=== PATIENT | male | born 1940 | race Caucasian/White ===

== ENCOUNTER 2023-09-27 07:08 | Outpatient (RCR) | payer SELFPAY | END 2023-09-27 23:59 | disposition home or self-care (01) | LOC: RST 07:08 | PROVIDERS: ATTENDING PHYSICIAN Internal Medicine | DX: G20.A1 Parkinson's disease without dyskinesia, without mention of fluctuations (principal) ==

== ENCOUNTER → 2023-11-24 11:41 | Outpatient (REF) | payer MEDICARE, OTHER, SELFPAY ==
[2023-11-24 12:15] LABS: PT 26.9 Sec (11.4-14.6)
== END ==
LOC: REG 11:41
PROVIDERS: ATTENDING PHYSICIAN Internal Medicine; FAMILY PHYSICIAN Internal Medicine
DX: I48.0 Paroxysmal atrial fibrillation (principal)
CPT/HCPCS: 36415; 85610

== ENCOUNTER → 2023-12-04 11:18 | Outpatient (REF) | payer MEDICARE, OTHER, SELFPAY ==
[2023-12-04 12:25] LABS: INR 1.83
[2023-12-04 12:39] LABS: Blood Urea Nitrogen 22 mg/dl (9-20); Calcium 8.9 mg/dl (8.4-10.2); Carbon Dioxide 32 mmol/L (22-30); Chloride 102 mmol/L (98-107); Glucose 130 mg/dl (70-99); Sodium 136 mmol/L (135-145); eGFR > 60.00
== END ==
LOC: REG 11:18
PROVIDERS: ATTENDING PHYSICIAN Internal Medicine; FAMILY PHYSICIAN Internal Medicine
DX: I48.0 Paroxysmal atrial fibrillation (principal); I10 Essential (primary) hypertension
CPT/HCPCS: 36415; 80048; 85610

== ENCOUNTER → 2023-12-11 13:17 | Outpatient (REF) | payer MEDICARE, OTHER, SELFPAY ==
[2023-12-11 14:19] LABS: INR 2.31; PT 25.3 Sec (11.4-14.6)
== END ==
LOC: REG 13:17
PROVIDERS: ATTENDING PHYSICIAN Internal Medicine; FAMILY PHYSICIAN Internal Medicine
DX: I48.0 Paroxysmal atrial fibrillation (principal)
CPT/HCPCS: 36415; 85610

== ENCOUNTER → 2023-12-20 13:36 | Outpatient (REF) | payer MEDICARE, OTHER, SELFPAY | LOC: DHCBC MAIN 13:36 | PROVIDERS: ATTENDING PHYSICIAN Internal Medicine; FAMILY PHYSICIAN Internal Medicine | DX: I50.9 Heart failure, unspecified (principal) | CPT/HCPCS: 93306 ==

== ENCOUNTER → 2023-12-25 13:32 | Outpatient (REF) | payer MEDICARE, OTHER, SELFPAY ==
[2023-12-25 14:13] LABS: INR 1.41; PT 17.1 Sec (11.4-14.6)
== END ==
LOC: REG 13:32
PROVIDERS: ATTENDING PHYSICIAN Internal Medicine; FAMILY PHYSICIAN Internal Medicine
DX: I48.0 Paroxysmal atrial fibrillation (principal)
CPT/HCPCS: 36415; 85610

== ENCOUNTER → 2024-01-02 11:25 | Outpatient (REF) | payer MEDICARE, OTHER, SELFPAY ==
[2024-01-02 12:16] LABS: INR 1.82; PT 20.9 Sec (11.4-14.6)
== END ==
LOC: REG 11:25
PROVIDERS: ATTENDING PHYSICIAN Internal Medicine; FAMILY PHYSICIAN Internal Medicine
DX: I48.0 Paroxysmal atrial fibrillation (principal)
CPT/HCPCS: 36415; 85610

== ENCOUNTER → 2024-01-10 12:13 | Outpatient (REF) | payer MEDICARE, OTHER, SELFPAY ==
[2024-01-10 13:25] LABS: INR 2.11; PT 23.9 Sec (11.4-14.6)
== END ==
LOC: REG 12:13
PROVIDERS: ATTENDING PHYSICIAN Internal Medicine; FAMILY PHYSICIAN Internal Medicine
DX: I48.0 Paroxysmal atrial fibrillation (principal)
CPT/HCPCS: 36415; 85610

== ENCOUNTER → 2024-02-07 13:22 | Outpatient (REF) | payer MEDICARE, OTHER, SELFPAY ==
[2024-02-07 17:19] LABS: INR 3.65; PT 36.9 Sec (11.4-14.6)
== END ==
LOC: REG 13:22
PROVIDERS: ATTENDING PHYSICIAN Internal Medicine; FAMILY PHYSICIAN Internal Medicine
DX: I48.21 Permanent atrial fibrillation (principal)
CPT/HCPCS: 36415; 85610

== ENCOUNTER → 2024-02-20 11:46 | Outpatient (REF) | payer MEDICARE, OTHER, SELFPAY ==
[2024-02-20 13:35] LABS: INR 2.93; PT 30.5 Sec (11.4-14.6)
== END ==
LOC: REG 11:46
PROVIDERS: ATTENDING PHYSICIAN Internal Medicine
DX: I48.0 Paroxysmal atrial fibrillation (principal)
CPT/HCPCS: 36415; 85610

== ENCOUNTER → 2024-03-07 | Outpatient (REF) | payer MEDICARE, OTHER, SELFPAY | LOC: DHSLP | PROVIDERS: ATTENDING PHYSICIAN Internal Medicine | DX: G47.33 Obstructive sleep apnea (adult) (pediatric) (principal); R09.02 Hypoxemia | CPT/HCPCS: 95810 ==

== ENCOUNTER → 2024-03-14 12:07 | Outpatient (REF) | payer MEDICARE, OTHER, SELFPAY ==
[2024-03-14 13:48] LABS: INR 3.91
== END ==
LOC: REG 12:07
PROVIDERS: ATTENDING PHYSICIAN Internal Medicine; FAMILY PHYSICIAN Internal Medicine
DX: I48.0 Paroxysmal atrial fibrillation (principal)
CPT/HCPCS: 36415; 85610

== ENCOUNTER → 2024-03-21 11:18 | Outpatient (REF) | payer MEDICARE, OTHER, SELFPAY ==
[2024-03-21 12:14] LABS: % Basophils 0.8 % (0-2); % Eosinophils 1.7 % (0-6); % Immature Granulocytes 0.4 % (0-0.5); % Lymphocytes 15.5 % (20.5-51.1); % Neutrophils 71.6 % (42.2-75.2); Absolute Eosinophils 0.1 10^3/uL (0-0.7); Absolute Lymphocytes 0.7 10^3/uL (1.2-3.4); Absolute Monocytes 0.5 10^3/uL (0.1-0.6); Absolute Neutrophils 3.4 10^3/uL (1.4-6.5); Hematocrit 36.7 % (39.0-52.0); Hemoglobin 12.2 g/dL (13.0-18.0); Mean Corp Hgb Conc. 33.2 g/dL (33.0-37.0); Mean Corpuscular Hgb 32.2 pg (27.0-31.0); Mean Corpuscular Volume 96.8 fL (80.0-94.0); Nucleated Red Blood Cells % 0 % (-); Platelet Count 144 10^3/uL (130-400); Red Blood Cell Count 3.79 10^6/uL (4.70-6.10); Red Cell Dist. Width 13.2 % (11.5-14.5); White Blood Cell Count 4.7 10^3/uL (4.8-10.8)
[2024-03-21 12:35] LABS: INR 3.77; PT 37.3 Sec (11.4-14.6)
[2024-03-21 12:40] LABS: NT-proBNP 1250 pg/ml
[2024-03-21 13:36] LABS: ALT (SGPT) < 10 U/L (0-50); AST (SGOT) 17 U/L (17-59); Albumin 3.2 g/dl (3.5-5.0); Alkaline Phosphatase 298 U/L (38-126); Blood Urea Nitrogen 26 mg/dl (9-20); Chloride 88 mmol/L (98-107); Glucose 132 mg/dl (70-99); HDL Cholesterol 51 mg/dl; LDL Cholesterol, Calculated 59 mg/dl; Potassium 3.2 mmol/L (3.5-5.1); Sodium 132 mmol/L (135-145); Total Cholesterol 126 mg/dl (50-199); Total Protein 6.4 g/dl (6.3-8.2); Triglyceride 84 mg/dl (10-149); Very Low Density Lipoprotein 16 mg/dl (0-30); eGFR > 60.00
[2024-03-21 13:47] LABS: Carbon Dioxide 37 mmol/L (22-30)
[2024-03-21 14:02] LABS: TSH 2.33 uIU/ml (0.47-4.68)
[2024-03-21 16:08] LABS: Urine Albumin Negative (Neg - Trace); Urine Bilirubin Negative (Negative); Urine Character Clear (Clear); Urine Color Yellow; Urine Glucose Negative (Negative); Urine Ketone Trace (Negative); Urine Leukocyte Trace (Negative); Urine Nitrite Negative (Negative); Urine Occult Blood 1+ (Negative); Urine Specific Gravity 1.015 (<1.030); Urine Urobilinogen 1+ (Neg - 1+)
[2024-03-21 16:14] LABS: Urine Mucus Few
[2024-03-21 16:15] LABS: Urine Bacteria Moderate (Negative); Urine White Cell 26-30 /HPF (0-5)
[2024-03-21 16:30] LABS: Protein/creatinine Ratio 0.1; Urine Protein 6 mg/dl
[2024-03-21 16:35] LABS: Microalbumin, Random Urine 1.5 mg/dl (0.6-1.7); Microalbumin/creatinine Ratio 14.8 mg/g
== END ==
LOC: REG 11:18
PROVIDERS: ATTENDING PHYSICIAN Internal Medicine; FAMILY PHYSICIAN Internal Medicine
DX: I48.0 Paroxysmal atrial fibrillation (principal); I48.21 Permanent atrial fibrillation; N31.9 Neuromuscular dysfunction of bladder, unspecified; G20.B2 Parkinson's disease with dyskinesia, with fluctuations; E78.5 Hyperlipidemia, unspecified; I50.32 Chronic diastolic (congestive) heart failure; E11.9 Type 2 diabetes mellitus without complications; E11.40 Type 2 diabetes mellitus with diabetic neuropathy, unspecified
CPT/HCPCS: 36415; 80053; 80061; 81003; 81015; 82043; 82570; 83036; 83880; 84156; 84443; 85025; 85610

== ENCOUNTER → 2024-04-03 11:51 | Outpatient (REF) | payer MEDICARE, OTHER, SELFPAY ==
[2024-04-03 13:11] LABS: INR 4.81; PT 45.9 Sec (11.4-14.6)
[2024-04-03 13:32] LABS: ALT (SGPT) < 10 U/L (0-50); AST (SGOT) 37 U/L (17-59); Albumin 3.5 g/dl (3.5-5.0); Alkaline Phosphatase 320 U/L (38-126); Blood Urea Nitrogen 24 mg/dl (9-20); Carbon Dioxide 40 mmol/L (22-30); Chloride 93 mmol/L (98-107); Glucose 132 mg/dl (70-99); Magnesium 1.6 mg/dl (1.6-2.3); Potassium 3.4 mmol/L (3.5-5.1); Sodium 138 mmol/L (135-145); Total Protein 6.8 g/dl (6.3-8.2); eGFR > 60.00
[2024-04-03 13:37] LABS: NT-proBNP 1010 pg/ml
== END ==
LOC: REG 11:51
PROVIDERS: ATTENDING PHYSICIAN Internal Medicine; FAMILY PHYSICIAN Internal Medicine
DX: I48.0 Paroxysmal atrial fibrillation (principal); I50.32 Chronic diastolic (congestive) heart failure
CPT/HCPCS: 36415; 80053; 83735; 83880; 85610

== ENCOUNTER → 2024-04-09 12:20 | Outpatient (REF) | payer MEDICARE, OTHER, SELFPAY ==
[2024-04-09 14:07] LABS: INR 4.87; PT 45.6 Sec (11.4-14.6)
== END ==
LOC: REG 12:20
PROVIDERS: ATTENDING PHYSICIAN Internal Medicine; FAMILY PHYSICIAN Internal Medicine
DX: I48.0 Paroxysmal atrial fibrillation (principal)
CPT/HCPCS: 36415; 85610

== ENCOUNTER → 2024-04-30 09:32 | Outpatient (REF) | payer MEDICARE, OTHER, SELFPAY ==
[2024-04-30 11:10] LABS: INR 3.82; PT 37.7 Sec (11.4-14.6)
== END ==
LOC: RAD 09:32
PROVIDERS: ATTENDING PHYSICIAN Internal Medicine; FAMILY PHYSICIAN Internal Medicine; REFERRING PHYSICIAN Family Medicine
DX: R74.8 Abnormal levels of other serum enzymes (principal); I48.0 Paroxysmal atrial fibrillation
CPT/HCPCS: 36415; 76700; 85610

== ENCOUNTER → 2024-05-03 11:50 | Outpatient (REF) | payer MEDICARE, OTHER, SELFPAY ==
[2024-05-03 13:18] LABS: Urine Albumin Trace (Neg - Trace); Urine Bilirubin 1+ (Negative); Urine Character Clear (Clear); Urine Color Amber; Urine Glucose Negative (Negative); Urine Ketone 1+ (Negative); Urine Leukocyte 2+ (Negative); Urine Nitrite Positive (Negative); Urine Occult Blood 4+ (Negative); Urine Urobilinogen 2+ (Neg - 1+)
[2024-05-03 13:20] LABS: % Basophils 0.4 % (0-2); % Eosinophils 1.6 % (0-6); % Immature Granulocytes 0.6 % (0-0.5); % Lymphocytes 11.2 % (20.5-51.1); % Monocytes 7.8 % (1.7-9.3); % Neutrophils 78.4 % (42.2-75.2); Absolute Eosinophils 0.1 10^3/uL (0-0.7); Absolute Lymphocytes 0.6 10^3/uL (1.2-3.4); Absolute Monocytes 0.4 10^3/uL (0.1-0.6); Absolute Neutrophils 4.1 10^3/uL (1.4-6.5); Hematocrit 33.3 % (39.0-52.0); Hemoglobin 11.4 g/dL (13.0-18.0); Mean Corp Hgb Conc. 34.2 g/dL (33.0-37.0); Mean Corpuscular Hgb 31.1 pg (27.0-31.0); Mean Platelet Volume 9.5 fL (7.4-10.4); Nucleated Red Blood Cells % 0 % (-); Platelet Count 122 10^3/uL (130-400); Red Blood Cell Count 3.66 10^6/uL (4.70-6.10); Red Cell Dist. Width 14.6 % (11.5-14.5); White Blood Cell Count 5.2 10^3/uL (4.8-10.8)
[2024-05-03 13:41] LABS: NT-proBNP 1370 pg/ml
[2024-05-03 13:49] LABS: Erythrocyte Sed Rate 98 mm/hour (0-20)
[2024-05-03 14:01] LABS: Urine Bacteria Few (Negative); Urine Mucus Few; Urine Red Blood Cell 40-50 /HPF (0-2); Urine White Cell 16-20 /HPF (0-5)
[2024-05-03 14:08] LABS: ALT (SGPT) < 10 U/L (0-50); AST (SGOT) 20 U/L (17-59); Albumin 3.4 g/dl (3.5-5.0); Alkaline Phosphatase 235 U/L (38-126); Blood Urea Nitrogen 16 mg/dl (9-20); Calcium 8.6 mg/dl (8.4-10.2); Carbon Dioxide 35 mmol/L (22-30); Chloride 90 mmol/L (98-107); Creatine Phosphokinase 67 U/L (55-170); Glucose 152 mg/dl (70-99); Potassium 3.2 mmol/L (3.5-5.1); Sodium 133 mmol/L (135-145); Total Bilirubin 2.8 mg/dl (0.2-1.3); Total Protein 6.3 g/dl (6.3-8.2); eGFR > 60.00
== END ==
LOC: RAD 11:50
PROVIDERS: ATTENDING PHYSICIAN Nurse Practitioner Family
DX: L97.909 Non-pressure chronic ulcer of unspecified part of unspecified lower leg with unspecified severity (principal); M79.89 Other specified soft tissue disorders; R52 Pain, unspecified; R09.89 Other specified symptoms and signs involving the circulatory and respiratory systems
CPT/HCPCS: 36415; 71046; 80053; 81003; 81015; 82550; 83880; 85025; 85652; 86140; 87086

== ENCOUNTER 2024-05-03 13:04 | Emergency (ER) | payer MEDICARE, OTHER, SELFPAY ==
[2024-05-03 13:13] VITALS: BP 100/63
--- NOTE | 2024-05-03 14:54 | ED.GENMED ---
History of Present Illness
<Carie Antoine PA-C - Last Filed: 05/03/24 19:09>
General
Chief Complaint: Weakness
Source: patient
Exam Limitations: none
Time Seen by Provider: 05/03/24 14:54
Nursing documentation reviewed up to this point in time: agreed with
History of Present Illness
History of Present Illness:
This is a 83-year-old male with a history of diastolic heart failure, A-fib on warfarin, Parkinson's, coronary artery disease hyperlipidemia presenting to the emergency department today with concerns of weakness. Patient states in general he feels
weak, reports that the last few days his legs have gotten so swollen that has been increasingly hard for him to walk. Patient resides at [facility] where he receives care. Patient is present here with his home health ostomy care nurse. She
reports that she is also noted patient seems like she has been short of breath recently. Patient personally denies any shortness of breath, any chest pain, any fevers or chills, any nausea or vomiting, abdominal pain. Home nurse reports that he
has had some wounds draining on his lower extremities recently as well. She reports over the past 2 weeks the swelling is gone significantly worse. He does take 40 mg of Lasix once daily. He saw his primary doctor this morning who ordered
outpatient labs and a chest x-ray. Patient denies any back pain. Of note, patient recently got a Shell catheter placed 3 days ago. Patient denies any urinary symptoms.
Past History
<Carie Antoine PA-C - Last Filed: 05/03/24 19:09>
Past History
ED Past Medical History: Arrthythmia, CAD, Hypercholesterolemia, NIDDM, Other (Kidney stones) and Other
ED Past Surgical History: Cardiac and Orthopedic
Social History
Tobacco: Non-smoker
Alcohol: Occasional (1 martini per day)
Drug: None
Personal:
Living: with family
Employment: Employed
Family History
Family History: Other (Noncontributory)
Review of Systems
<Carie Antoine PA-C - Last Filed: 05/03/24 19:09>
Review of Systems
All Other Systems: ROS reviewed and negative except as documented in HPI and ROS
Phy Exam
<Carie Antoine PA-C - Last Filed: 05/03/24 19:09>
Physical Exam
Physical Exam:
General: Patient is chronically ill-appearing but in no acute distress; non-toxic
Skin: Warm and dry, there is small scattered wounds in the bilateral lower extremities with some mild clear drainage but no erythema, no signs of acute infection
Head: Normocephalic, atraumatic.
Eyes: Sclera non-icteric. EOMs intact. PERRLA.
Cardiac: Rate is irregularly irregular with no murmurs
Peripheral Vascular: Bilateral lower extremity pitting edema noted. Brawny discoloration noted. There are two circular shallow wounds on the right lower extremity, and two shallow wounds on the left lower extremity. Wounds are well dressed. No signs
of ulceration, necrosis, or infection.
Pulm: Normal respiratory effort, lung sounds equal bilaterally with no wheezes, rales, or rhonchi.
Abdomen: No abdominal tenderness to palpation, no palpable masses.
Musculoskeletal: No tenderness to palpation of bilateral lower extremities.
Neuro: CN II-XII intact, no focal neurologic deficits.
Psychiatric: Appropriate mood and affect.
Course
<Carie Antoine PA-C - Last Filed: 05/03/24 19:09>
Orders/Labs/Results
Orders:
Orders
05/03/24 15:16
Furosemide [Lasix] 40 mg IV NOW STA
05/03/24 15:17
Add On- LAB Urgent
Tests Added?: troponin
Electrocardiogram (*1) Urgent
Reason for Study: Heart Failure, Left
EKG- Treatment ONCE
05/03/24 15:39
Potassium Chloride 10% Elixir [KCl Elixir] 40 meq PO NOW STA
05/03/24 16:29
Troponin I Urgent
Comment: COLLECT. NO GREEN TOP IN LAB
Abnormal Lab Results
05/03/24
16:29
Troponin I 0.092 H* ng/ml
Vital Signs
Initial and Last Documented VS:
Initial Vital Signs
Temp Pulse Resp BP Pulse Ox
98.0 F 87 16 100/63 98
05/03/24 13:13 05/03/24 13:13 05/03/24 13:13 05/03/24 13:13 05/03/24 13:13
Last Documented Vital Signs
Temp Pulse Resp BP Pulse Ox
98.0 F 98 23 128/72 96
05/03/24 13:13 05/03/24 17:15 05/03/24 17:49 05/03/24 17:00 05/03/24 16:45
<Damian Higgins, DO - Last Filed: 05/03/24 16:06>
Orders/Labs/Results
Orders:
Orders
05/03/24 15:16
Furosemide [Lasix] 40 mg IV NOW STA
05/03/24 15:17
Add On- LAB Urgent
Tests Added?: troponin
Electrocardiogram (*1) Urgent
Reason for Study: Heart Failure, Left
EKG- Treatment ONCE
05/03/24 15:39
Potassium Chloride 10% Elixir [KCl Elixir] 40 meq PO NOW STA
05/03/24 16:29
Troponin I Urgent
Comment: COLLECT. NO GREEN TOP IN LAB
Abnormal Lab Results
05/03/24
16:29
Troponin I 0.092 H* ng/ml
Vital Signs
Initial and Last Documented VS:
Initial Vital Signs
Temp Pulse Resp BP Pulse Ox
98.0 F 87 16 100/63 98
05/03/24 13:13 05/03/24 13:13 05/03/24 13:13 05/03/24 13:13 05/03/24 13:13
Last Documented Vital Signs
Temp Pulse Resp BP Pulse Ox
98.0 F 98 23 128/72 96
05/03/24 13:13 05/03/24 17:15 05/03/24 17:49 05/03/24 17:00 05/03/24 16:45
<Carie Antoine PA-C - Last Filed: 05/03/24 19:09>
MDM/Problems Addressed
Differential Diagnosis Includes:
Differentials include acute CHF exacerbation, cellulitis, peripheral vascular disease, peripheral arterial disease, erysipelas, pneumonia, urinary tract infection
MDM/Problems Addressed:
Weakness, lower extremity swelling:
This is a 83-year-old male with a history of diastolic heart failure, A-fib on warfarin, Parkinson's, coronary artery disease hyperlipidemia presenting to the emergency department today with concerns of weakness. Patient states that when he walks,
he feels weaker because the swelling in his legs have increased over the past few weeks. Patient denies chest pain, shortness of breath. Patient denies dizziness, lightheadedness, abdominal pain, fevers or chills. On physical exam he is
chronically ill-appearing but nontoxic, he has bilateral lower extremity swelling, and he is in no respiratory distress his chest x-ray is negative for any acute disease of the chest, no evidence of pleural effusion or pneumonia. His troponin today
0.092, however this is around his baseline. His proBNP is slightly bumped from his baseline. Considering his increase in leg swelling and pro-BNP, a dose of IV lasix was given. I personally observed patient ambulate to the bathroom with his walker
without difficulty. Patient stable to follow up with his house carpenter helper, return precautions discussed.
Outpatient urinalysis demonstrates positive nitrates and WBCs with trace bacteria collected off of chronic shell. Considering patient has no symptoms afebrile, no indication for treatment at this time.
Chronic conditions affecting care:
diastolic heart failure, A-fib on warfarin, Parkinson's, coronary artery disease hyperlipidemia
Acute Exacerbation and/or Progression of Chronic Illness:
CHF
<Carie Antoine PA-C - Last Filed: 05/03/24 19:09>
*Pulse Oximetry
Patient hypoxic: no
*EKG
Interpreted by ED Provider?: Yes
EKG Intrepretation Date: 05/03/24
Interpretation: abnormal
Comparison EKG: changes noted (rate has increased, occasional PVCs now present)
Heart Rate: 78
Rate: normal
Rhythm: a-fib
[place]: normal axis
Interval: normal interval
Ischemia: no ischemia
*Revenue Field Agent Interpretation
Rate: normal
Interpretation: abnormal
Heart Rate: 80
Rhythm: a-fib
*Critical Care Note
Total Time (30-74mins, 75-104mins- exclusive of procedures): Not Applicable
Data Reviewed
Review of Other/Old Records Reveals: Records (Reviewed previous ER record from 05/31/2023), Discharge Summary (Reviewed discharge summary from 06/01/2023) and Other (Reviewed most previous echo)
Source: patient
Prescriptions/Medications Considered But Not Given:
Considered antibiotics
<VINCENT Villanueva Last Filed: 05/03/24 19:09>
Patient Management
Escalation/DeEscalation of care consider admission/obs:
Admit not indicated, patient stable for discharge to care at [facility] and outpatient cardiology follow up
ED Attending Note
<VINCENT Villanueva Last Filed: 05/03/24 19:09>
-
Portions of this chart may have been created with voice recognition software.� Occasional wrong word or��sound alike� substitutions may have occurred due to the inherent limitations of voice recognition software.
<Damian Higgins, DO - Last Filed: 05/03/24 16:06>
ED Attending Note
Patient seen and examined by attending physician: Yes
I performed the substantive portion of visit, reviewed & personally made and approve the management plan that is documented in note by myself or JOSE.: Yes
ED Attending Note:
Seen with PA examined independently lower extremity edema with some drainage outpatient labs and x-ray done, does not appear critically dyspneic, look at his legs, consideration for dose of diuretic
Discharge Plan
Departure
Patient Disposition: Home (Routine Discharge)
Date of Disposition: 05/03/24
Time of Disposition: 17:45
Patient with high blood pressure during this ER visit?: No
Condition: Good
Discharge Problem:
Swelling of both lower extremities, Chronic congestive heart failure
Instructions: Swelling, Heart failure, *CBC Heart Failure Instructions
Prescriptions:
No Action
carbidopa-levodopa 50-200 mg Tablet Extended Release
2 tab PO QID
cholecalciferol (vitamin D3) [Vitamin D3] 50 mcg (2,000 unit) Capsule
50 mcg PO DAILY
pramipexole 1 mg Tablet
2 mg PO QID
warfarin [Jantoven] 2.5 mg tablet
2.5 mg PO SUMOWEFRSA
pravastatin 10 mg tablet
10 mg PO DAILY
warfarin 2.5 mg Tablet
3.75 mg PO TUTH
Hold Instructions: Resume on 03/17/23.
atenolol 25 mg tablet
25 mg PO DAILY
escitalopram oxalate 10 MG tablet
10 mg PO DAILY
ezetimibe 10 MG tablet
10 mg PO HS
furosemide 40 mg tablet
40 mg PO DAILY
cefdinir 300 mg capsule
300 mg PO BID
Referrals:
Dre Diaz CRNP [Family Provider] -
Activity Restrictions/Additional Instructions:
Please schedule a follow up appointment with Dr. Epps.
Please return to the emergency department should you experience chest pain, shortness of breath, do not see improvement of your swelling, experience fevers or chills, abdominal pain, nausea or vomiting, dizziness, lightheadedness, or any other signs
or symptoms concerning to you.
Interventions
Interventions:
*Risk Screen - Suicide Last Done: 05/03/24 16:30
*General Assessment Last Done: 05/03/24 16:30
*Neglect/Abuse Screening Last Done: 05/03/24 16:30
ED- Fall Risk Assessment Last Done: 05/03/24 16:32
*ED COVID-19 Vaccine History Last Done: 05/03/24 16:30
ED- Cardiac Assessment Last Done: 05/03/24 16:32
ED- Neurological Assessment Last Done: 05/03/24 16:32
ED- Pulmonary Assessment Last Done: 05/03/24 16:34
Discharge Date and Time
Print Language: CHADIAN
[2024-05-03 16:25] VITALS: BP 123/83
[2024-05-03 16:30] VITALS: BMI 33.4
[2024-05-03] MEDS: LASIX 40 MG IV (16:34)
[2024-05-03] MEDS: KCL ELIXIR 40 MEQ PO (16:35)
[2024-05-03 17:00] VITALS: BP 128/72
[2024-05-03 17:18] LABS: Troponin I 0.092 ng/ml
[2024-05-03 19:25] VITALS: BP 118/93
== END 2024-05-03 19:47 | disposition home or self-care (01) ==
LOC: EMR 13:04
PROVIDERS: EMERGENCY PHYSICIAN Emergency Medicine; FAMILY PHYSICIAN Nurse Practitioner Family
DX: R53.1 Weakness (principal); M79.89 Other specified soft tissue disorders; R60.0 Localized edema; I50.32 Chronic diastolic (congestive) heart failure; I73.9 Peripheral vascular disease, unspecified; I48.91 Unspecified atrial fibrillation; I25.10 Atherosclerotic heart disease of native coronary artery without angina pectoris; E11.40 Type 2 diabetes mellitus with diabetic neuropathy, unspecified; E78.00 Pure hypercholesterolemia, unspecified; G20.A1 Parkinson's disease without dyskinesia, without mention of fluctuations; K57.90 Diverticulosis of intestine, part unspecified, without perforation or abscess without bleeding; M19.90 Unspecified osteoarthritis, unspecified site; M06.9 Rheumatoid arthritis, unspecified; F41.9 Anxiety disorder, unspecified; F32.A Depression, unspecified; Z96.643 Presence of artificial hip joint, bilateral; Z79.01 Long term (current) use of anticoagulants; Z79.899 Other long term (current) drug therapy; Z87.442 Personal history of urinary calculi; Z87.891 Personal history of nicotine dependence; Z88.1 Allergy status to other antibiotic agents; Z88.8 Allergy status to other drugs, medicaments and biological substances; Z91.048 Other nonmedicinal substance allergy status
CPT/HCPCS: 99284; 96374; 36415; 71046; 80053; 81003; 81015; 82550; 83735; 83880; 84484; 85025; 85652; 86140; 87086; 93005

== ENCOUNTER 2024-05-05 12:07 | Emergency (ER) | payer MEDICARE, OTHER, SELFPAY ==
[2024-05-05] VITALS (26 sets, daily range): BP systolic 90–118; BP diastolic 57–96; BMI 31.7
--- NOTE | 2024-05-05 13:29 | ED.GENMED ---
History of Present Illness
General
Chief Complaint: Urinary Symptoms
Source: patient
Exam Limitations: none
Time Seen by Provider: 05/05/24 12:55
Nursing documentation reviewed up to this point in time: agreed with
History of Present Illness
History of Present Illness:
83-year-old male presents for department due to blood-tinged urine in Newman and fevers. No fever upon arrival. Patient complains of shoulder pain. This is chronic.
Past History
Past History
ED Past Medical History: Arrthythmia, CAD, Hypercholesterolemia, NIDDM, Other (Kidney stones) and Other
ED Past Surgical History: Cardiac and Orthopedic
Social History
Tobacco: Non-smoker
Alcohol: Occasional (1 martini per day)
Drug: None
Personal:
Living: with family
Employment: Employed
Family History
Family History: Other (Noncontributory)
Review of Systems
Review of Systems
Allergies reviewed?: Yes
All Other Systems: Not applicable
Constitutional: Reports no symptoms
EENT: Reports no symptoms
Respiratory: Reports no symptoms
Cardiac: Reports no symptoms
ABD/GI: Reports no symptoms
: Reports dark urine
Musculoskeletal: Reports no symptoms
Skin: Reports no symptoms
Neurological: Reports no symptoms
Endocrine: Reports no symptoms
Hematologic/Lymphatic: Reports no symptoms
Psychiatric: Reports no symptoms
Phy Exam
Physical Exam
Physical Exam:
Physical Exam
General: no apparent distress, not acutely ill
Neck: supple. no meningeal signs. normal posterior pharynx
Heart: s1/s2 regular rate and rhythm, no murmur. equal radial
pulses.
HEENT: Pupils equal round reactive to light, EOMI
Lungs: no acute respiratory distress. clear bilaterally
Abdomen: normal bowel sounds. not tender. no CVAT
Neuro: alert and oriented. no focal neurological deficits cranial nerves II through XII intact
Skin: no rash
Psychiatric: well kept. interactive and cooperative
Extremities: Chronic bilateral tibial edema. no calf tenderness. negative homans. good distal pulses, decreased mobility of bilateral shoulders
Course
Orders/Labs/Results
Orders:
Orders
05/05/24 13:32
Urinalysis Reflex To Culture Urgent
Date Specimen was Collected: 05/05/24
Time Specimen was Collected: 13:30
Urine Microscopic Reflex Cult Urgent
Urine Culture Urgent
ALBERTO Source: U
Specimen Description:
Date Specimen was Collected: 05/05/24
Time Specimen was Collected: 13:30
Abnormal Lab Results
05/05/24
13:32
Urine Ketones Trace A
(Negative)
Ur Occult Blood Reflex 2+ A
(Negative)
Urine Bilirubin 1+ A
(Negative)
Urine Urobilinogen 3+ A
(Neg - 1+)
Leukocyte Esterase Rfl 1+ A
(Negative)
Urine RBC 3-6 A /HPF
(0-2)
Urine WBC (Reflex) 11-15 A /HPF
(0-5)
Urine Bacteria (Reflex) Few A
(Negative)
Vital Signs
Initial and Last Documented VS:
Initial Vital Signs
Pulse Resp Pulse Ox
91 28 96
05/05/24 12:13 05/05/24 12:13 05/05/24 12:13
Last Documented Vital Signs
Temp Pulse Resp BP Pulse Ox
98.5 F 92 23 102/69 97
05/05/24 12:14 05/05/24 13:00 05/05/24 13:00 05/05/24 13:00 05/05/24 13:00
MDM/Problems Addressed
Differential Diagnosis Includes:
UTI, CHF
MDM/Problems Addressed:
83-year-old male with dark urine, do not suspect UTI. Stable for discharge.
Chronic conditions affecting care: Cardiomyopathy and Arrhythmia
*Pulse Oximetry
Patient hypoxic: no
*EKG
Interpreted by ED Provider?: NA
*Burlapper Interpretation
Rate: Burlapper- N/A
*Critical Care Note
Total Time (30-74mins, 75-104mins- exclusive of procedures): Not Applicable
Data Reviewed
Review of Other/Old Records Reveals: Labs (Prior urine possibly concerning for UTI, but also likely due to chronic indwelling Newman. No urinary tract symptoms.)
Patient Management
Social determinants of health affecting care: Living situation
Escalation/DeEscalation of care consider admission/obs:
Admit not indicated
ED Attending Note
-
Portions of this chart may have been created with voice recognition software.� Occasional wrong word or��sound alike� substitutions may have occurred due to the inherent limitations of voice recognition software.
Discharge Plan
Departure
Patient Disposition: Assisted Living
Date of Disposition: 05/05/24
Time of Disposition: 14:47
Condition: Good
Discharge Problem:
Chronic indwelling Newman catheter, Parkinson disease, Leg swelling
Instructions: Blood in the Urine (Hematuria), Adult (DC), BLOOD PRESSURE
Prescriptions:
No Action
carbidopa-levodopa 50-200 mg Tablet Extended Release
2 tab PO QID
cholecalciferol (vitamin D3) [Vitamin D3] 50 mcg (2,000 unit) Capsule
50 mcg PO DAILY
pramipexole 1 mg Tablet
2 mg PO QID
warfarin [Jantoven] 2.5 mg tablet
2.5 mg PO SUMOWEFRSA
pravastatin 10 mg tablet
10 mg PO DAILY
warfarin 2.5 mg Tablet
3.75 mg PO TUTH
Hold Instructions: Resume on 03/17/23.
atenolol 25 mg tablet
25 mg PO DAILY
escitalopram oxalate 10 MG tablet
10 mg PO DAILY
ezetimibe 10 MG tablet
10 mg PO HS
furosemide 40 mg tablet
40 mg PO DAILY
cefdinir 300 mg capsule
300 mg PO BID
Referrals:
Travon Grant, DO [Family Provider] - Call in 1-3 days for appt
Interventions
Interventions:
*Risk Screen - Suicide Last Done: 05/05/24 12:13
*General Assessment Last Done: 05/05/24 12:13
*Neglect/Abuse Screening Last Done: 05/05/24 12:13
*ED COVID-19 Vaccine History Last Done: 05/05/24 12:13
ED-Male Genitourinary Assessment Last Done: 05/05/24 12:14
Discharge Date and Time
Print Language: KYRGYZ
[2024-05-05 13:39] LABS: Urine Albumin Negative (Neg - Trace); Urine Bilirubin 1+ (Negative); Urine Character Clear (Clear); Urine Color Yellow; Urine Glucose Negative (Negative); Urine Ketone Trace (Negative); Urine Leukocyte 1+ (Negative); Urine Nitrite Negative (Negative); Urine Occult Blood 2+ (Negative); Urine Specific Gravity 1.015 (<1.030); Urine Urobilinogen 3+ (Neg - 1+)
[2024-05-05 13:57] LABS: Urine Bacteria Few (Negative)
[2024-05-05] MEDS: NEURONTIN 300 MG PO (15:07)
--- NOTE | 2024-05-05 15:07 | CM ---
CM was consulted for discharge planning. CM met with patient and in room. confirmed that patient lives in [facility].Patient has a caregiver that stay with him 5 days per week for 4-5 hours per day. Patient has medication
assistance available as well, but caregiver has been giving patient his medications.
Patient has PT/OT from [facility] twice a week. Patient's feels patient has all the services he needs. She will contact [facility] should he need additional care or services.
== END 2024-05-05 18:38 ==
LOC: EMR 12:07
PROVIDERS: EMERGENCY PHYSICIAN Emergency Medicine; FAMILY PHYSICIAN Internal Medicine; REFERRING PHYSICIAN Internal Medicine
DX: R22.43 Localized swelling, mass and lump, lower limb, bilateral (principal); G20.A1 Parkinson's disease without dyskinesia, without mention of fluctuations; Z46.6 Encounter for fitting and adjustment of urinary device
CPT/HCPCS: 99283; 81003; 81015; 87086

== ENCOUNTER 2024-05-07 04:02 | Emergency (ER) | payer MEDICARE, OTHER, SELFPAY ==
[2024-05-07 04:09] VITALS: BP 108/69; BMI 31.7
[2024-05-07 04:13] VITALS: BP 108/69
--- NOTE | 2024-05-07 04:23 | ED.MUSCINJ ---
HPI-Injury
<Archie De Los Santos DO, Resident - Last Filed: 05/07/24 05:08>
General
Chief Complaint: Fall
Time Seen by Provider: 05/07/24 04:13
History of Present Illness-Injury
Is this injury a work related problem?: No
Is pt an associate of [facility]?: No
Initial Injury comments:
Patient is an 83-year-old male presenting to the ED after a fall where he bumped his right arm against the corner of the fridge and slid down the side of the door. He states that he did not hit his head, lose consciousness, feel dizzy, or have any
bleeding after the fall. He has a history of A-fib and is currently on blood thinners.He also has chronic bilateral leg swelling. He was recently seen in the ED for UTI symptoms.
Past History
<Archie De Los Santos DO, Resident - Last Filed: 05/07/24 05:08>
Past History
ED Past Medical History: Arrthythmia, CAD, Hypercholesterolemia, NIDDM, Other (Kidney stones) and Other
ED Past Surgical History: Cardiac and Orthopedic
Social History
Tobacco: Non-smoker
Alcohol: Occasional (1 martini per day)
Drug: None
Personal:
Living: with family
Employment: Employed
Family History
Family History: Other (Noncontributory)
Review of Systems
<Archie De Los Santos DO, Resident - Last Filed: 05/07/24 05:08>
Review of Systems
Constitutional: Reports other (fall)
EENT: Reports no symptoms
Respiratory: Reports no symptoms
Cardiac: Reports no symptoms
ABD/GI: Reports no symptoms
Musculoskeletal: Reports joint pain (shoulder ) and muscle pain
Skin: Reports no symptoms
Neurological: Reports no symptoms
Phy Exam
<Archie De Los Santos DO, Resident - Last Filed: 05/07/24 05:08>
General Physical Exam
General Presentation: well appearing and no apparent distress
General age: appears stated age
General Skin: warm and dry
General Habitus: normal and elderly
General Mental: alert
General Hydration: appears well hydrated
Pulmonary Exam
Pulmonary Exam: lungs clear, no respiratory distress, no rales, chest non tender, no crackles, no rhonchi, no stridor, no wheezing and no cough
Musculoskeletal Exam
Musculoskeletal Exam: edema and other (b/l shoulder pain, b/l leg swelling)
Psychiatric Exam
Psychiatric Exam: normal mood/affect
Injury Course
<Archie De Los Santos DO, Resident - Last Filed: 05/07/24 05:08>
Orders/Labs/Results
Orders:
Orders
05/07/24 04:06
Electrocardiogram (*1) Urgent
Reason for Study: Other
Other Reason for Exam: Possible Sepsis
Cardiac Monitoring- Treatment ONCE
IV Insert/Care/Rem.- Treatment PRN
O2 Therapy [RESP] Urgent
Titrate/Wean O2 to maintain O2 sat greater than (%): 93
Special Instructions: TO MAINTAIN CONTINUOUS O2 SATS > OR = 93%
Pulse Ox/cont/shift [RESP] Urgent
Quantity: 1
Special Instructions: CONTINUOUS
05/07/24 04:25
Electrocardiogram (*1) Urgent
Reason for Study: Fatigue / Weakness
EKG- Treatment ONCE
05/07/24 04:16
05/07/24 04:16
<Patric Acuna DO - Last Filed: 05/07/24 05:04>
Orders/Labs/Results
Orders:
Orders
05/07/24 04:06
Electrocardiogram (*1) Urgent
Reason for Study: Other
Other Reason for Exam: Possible Sepsis
Cardiac Monitoring- Treatment ONCE
IV Insert/Care/Rem.- Treatment PRN
O2 Therapy [RESP] Urgent
Titrate/Wean O2 to maintain O2 sat greater than (%): 93
Special Instructions: TO MAINTAIN CONTINUOUS O2 SATS > OR = 93%
Pulse Ox/cont/shift [RESP] Urgent
Quantity: 1
Special Instructions: CONTINUOUS
05/07/24 04:25
Electrocardiogram (*1) Urgent
Reason for Study: Fatigue / Weakness
EKG- Treatment ONCE
05/07/24 04:16
05/07/24 04:16
<Archie De Los Santos DO, Resident - Last Filed: 05/07/24 05:08>
MDM/Problems Addressed
Differential Diagnosis Includes:
Contusion of right arm, fall
MDM/Problems Addressed:
Patient is an 83-year-old male presenting to the ED after a fall. Patient is stable. He did not hit his head. He did not lose consciousness. He is on blood thinners.He states he wants to go home we will discharge him back to [facility]
Chronic conditions affecting care: Arrhythmia
Acute Exacerbation and/or Progression of Chronic Illness: Arrhythmia
<Archie De Los Santos DO, Resident - Last Filed: 05/07/24 05:08>
*Pulse Oximetry
Patient hypoxic: no
*EKG
Interpreted by ED Provider?: Yes
EKG Intrepretation Date: 05/07/24
Interpretation: abnormal
Comparison EKG: no changes
Heart Rate: 107
Rate: tachycardiac
Rhythm: a-fib
[place]: normal axis
Interval: normal interval
QRS Pattern: normal QRS
Ischemia: no ischemia
*Retirement Village Manager Interpretation
Rate: tachycardiac
Interpretation: abnormal
Heart Rate: 101
Rhythm: a-fib
*Critical Care Note
Total Time (30-74mins, 75-104mins- exclusive of procedures): Not Applicable
ED Attending Note
<Archie De Los Santos DO, Resident - Last Filed: 05/07/24 05:08>
-
Portions of this chart may have been created with voice recognition software.� Occasional wrong word or��sound alike� substitutions may have occurred due to the inherent limitations of voice recognition software.
<Patric Acuna DO - Last Filed: 05/07/24 05:04>
ED Attending Note
Patient seen and examined by attending physician: Yes
I performed a history and physical exam of patient and discussed management with resident, I reviewed resident's note and agree with documented findings and plan of care.: Yes
ED Attending Note:
This a pleasant 83-year-old male that presents from [place] after he had a slide and fall. He was walking with his walker leaning on the refrigerator. He started to lose his balance and he grabbed the sink, slipping and sliding down the cabinet
onto his butt. He did not hit his head. He is on blood thinners. He states that there was no head strike or loss of consciousness. Denies any injuries at this time. He wishes to be discharged home. Patient was seen in conjunction with the
durable medical equipment technician. I have reviewed and agree with her history and treatment plan. On my independent exam patient is awake, alert, and oriented. Answering questions appropriately. He denies any injuries. He states that he has chronic shoulder
pain but that is not new. No hip tenderness to palpation. Minimal pedal edema. Heart is irregularly irregular. Rate on the monitor ranges from 96-1 06.
Patient to be discharged home. Transportation back to [place].
Discharge Plan
Departure
Patient Disposition: Intermediate/SNF
Date of Disposition: 05/07/24
Time of Disposition: 05:06
Patient with high blood pressure during this ER visit?: No
Condition: Good
Discharge Problem:
Fall from slipping
Instructions: Preventing falls in adults
Prescriptions:
No Action
carbidopa-levodopa 50-200 mg Tablet Extended Release
2 tab PO QID
cholecalciferol (vitamin D3) [Vitamin D3] 50 mcg (2,000 unit) Capsule
50 mcg PO DAILY
pramipexole 1 mg Tablet
2 mg PO QID
warfarin [Jantoven] 2.5 mg tablet
2.5 mg PO SUMOWEFRSA
pravastatin 10 mg tablet
10 mg PO DAILY
warfarin 2.5 mg Tablet
3.75 mg PO TUTH
Hold Instructions: Resume on 03/17/23.
atenolol 25 mg tablet
25 mg PO DAILY
escitalopram oxalate 10 MG tablet
10 mg PO DAILY
ezetimibe 10 MG tablet
10 mg PO HS
furosemide 40 mg tablet
40 mg PO DAILY
cefdinir 300 mg capsule
300 mg PO BID
gabapentin 300 mg capsule
300 mg PO HS Qty: 30 0RF
Referrals:
[facility] [Outside]
Activity Restrictions/Additional Instructions:
It was a pleasure meeting you and taking part in your care. We hope for your continued healing and wellness.
Please read discharge instructions in their entirety. However, they are for general education and may not describe your exact diagnosis at discharge. Information on your ER visit and medical conditions were discussed with you along with appropriate
follow up information...
If indicated, please take your medications as instructed and indicated on discharge paperwork.
Please schedule a follow up appointment as directed. Call to schedule an appointment
Please return to the emergency department with ANY change in, persisting, or worsening of symptoms. If any of your symptoms do not improve, or persist, or become more severe within 6-12 hours, please return to the emergency department for further
care.
Please return to the emergency department if you develop a headache, neck pain/stiffness, fever greater than 100.4F, chest pain, shortness of breath, persistent nausea, vomiting, slurred speech, difficulty walking, numbness/tingling, weakness, signs
of infection or any other symptoms that are worrisome to you.
If you have any questions or concerns please do not hesitate to call the Hospital at or E-mail me directly at [email or web address]
Interventions
Interventions:
*Risk Screen - Suicide Last Done: 05/07/24 04:09
*General Assessment Last Done: 05/07/24 04:09
*Neglect/Abuse Screening Last Done: 05/07/24 04:09
ED- Fall Risk Assessment Last Done: 05/07/24 04:36
*ED COVID-19 Vaccine History Last Done: 05/07/24 04:09
ED-Musculoskeletal Assessment Last Done: 05/07/24 04:36
ED- Neurological Assessment Last Done: 05/07/24 04:36
ED-Skin Assessment Last Done: 05/07/24 04:36
Discharge Date and Time
Print Language: PASHTO
[2024-05-07 05:00] VITALS: BP 114/57
== END 2024-05-07 07:15 ==
LOC: EMR 04:02
PROVIDERS: EMERGENCY PHYSICIAN Student in an Organized Health Care Education/Training Program; FAMILY PHYSICIAN Internal Medicine
DX: M25.512 Pain in left shoulder (principal); M25.511 Pain in right shoulder; R53.83 Other fatigue; R53.1 Weakness; R60.0 Localized edema; W19.XXXA Unspecified fall, initial encounter; I48.91 Unspecified atrial fibrillation; M79.89 Other specified soft tissue disorders; I25.10 Atherosclerotic heart disease of native coronary artery without angina pectoris; E78.00 Pure hypercholesterolemia, unspecified; E11.9 Type 2 diabetes mellitus without complications; Z87.442 Personal history of urinary calculi; Z79.01 Long term (current) use of anticoagulants; Z88.1 Allergy status to other antibiotic agents; Z88.8 Allergy status to other drugs, medicaments and biological substances; Z91.048 Other nonmedicinal substance allergy status
CPT/HCPCS: 99283; 93005

== ENCOUNTER → 2024-05-08 09:13 | Outpatient (REF) | payer MEDICARE, OTHER, SELFPAY ==
[2024-05-08 13:40] LABS: INR 4.25; PT 41.6 Sec (11.4-14.6)
== END ==
LOC: OLABSOL 09:13
PROVIDERS: ATTENDING PHYSICIAN Internal Medicine
DX: I48.0 Paroxysmal atrial fibrillation (principal)
CPT/HCPCS: 36415; 85610

== ENCOUNTER → 2024-05-15 10:37 | Outpatient (REF) | payer MEDICARE, OTHER, SELFPAY ==
[2024-05-15 15:46] LABS: PT 49.2 Sec (11.4-14.6)
[2024-05-15 15:52] LABS: INR 5.25
== END ==
LOC: OLABSOL 10:37
PROVIDERS: ATTENDING PHYSICIAN Internal Medicine
DX: I48.0 Paroxysmal atrial fibrillation (principal)
CPT/HCPCS: 36415; 85610

== ENCOUNTER 2024-05-18 22:29 | Inpatient (IN) | payer MEDICARE, OTHER, SELFPAY ==
[2024-05-18] VITALS (11 sets, daily range): BP systolic 83–110; BP diastolic 49–69; PULSE 83; BMI 31.3
--- NOTE | 2024-05-18 20:06 | ED.GENMED ---
History of Present Illness
<SUKH Castellanos - Last Filed: 05/18/24 23:39>
General
Chief Complaint: Urinary Symptoms
Source: patient
Exam Limitations: none
Time Seen by Provider: 05/18/24 19:40
History of Present Illness
History of Present Illness:
This is a 83 year old male that is brought in by ambulance with c/o fatigue. States that he went out for dinner with his family and he is just very tired. States that they changed his Catheter last night. States that he is slightly dizzy. Denies any
fever, chills, chest pain, SOB, abd pain, nausea, vomiting, diarrhea, headache.
Past History
<SUKH Castellanos - Last Filed: 05/18/24 23:39>
Past History
ED Past Medical History: Arrthythmia (Atrial fib, ), CAD, CHF, Hypercholesterolemia, NIDDM, Other (Kidney stones, Back pain, Neuropathy, Parkinson, PNA, Diverticulitis, Colonic tubular adenoma, Chronic indwelling shell, Anemia, Vit D Def, ) and Other
ED Past Surgical History: Appendectomy, Cardiac (Angioplasty) and Orthopedic (Left and right total hip replacement Right rotator cuff repair. Bilateral knee replacement. )
Social History
Tobacco: Former smoker
Alcohol: Daily (1 martini per day)
Drug: None
Personal:
Living: [facility]
Family History
Family History: Other (Noncontributory)
Review of Systems
<SUKH Castellanos - Last Filed: 05/18/24 23:39>
Review of Systems
All Other Systems: ROS reviewed and negative except as documented in HPI and ROS
Constitutional: Reports fatigue; Denies fever or chills
EENT: Reports no symptoms
Respiratory: Reports no symptoms; Denies cough or trouble breathing
Cardiac: Reports no symptoms; Denies chest pain
ABD/GI: Reports no symptoms; Denies abdominal pain, nausea, vomiting or diarrhea
: Reports other (Chronic indwelling shell)
Musculoskeletal: Reports no symptoms
Skin: Reports no symptoms
Neurological: Reports other (Lightheaded); Denies dizzy or headache
Psychiatric: Reports no symptoms
Phy Exam
<SUKH Castellanos - Last Filed: 05/18/24 23:39>
General Physical Exam
General Presentation: no apparent distress
General age: appears stated age
General Skin: warm and dry
General Habitus: elderly
General Mental: alert
General Hydration: dry mucous membranes
ENT Exam
ENT Exam: TM's normal, pharynx normal and neck supple
Eye Exam
Eye Exam: EOMI
Cardiovascular Exam
Cardiovascular Exam: normal peripheral pulses and irregularly irregular
Pulmonary Exam
Pulmonary Exam: no respiratory distress, chest non tender, no rhonchi, no wheezing, no cough and other (Very fine crackles at bases)
Gastrointestinal Exam
Gastrointestinal Exam: normal bowel sounds, non tender, soft, no organomegaly, no pulsatile mass and non distended
Genitourinary Exam Male
Exam Male: other (CHronic indwelling shell)
Musculoskeletal Exam
Musculoskeletal Exam: edema (+2 pitting edema of feet and lower legs. Left ankle >R)
Skin Exam
Skin Exam: normal color, warm/dry, no petechia and other (Rash noted on face possible from shaving, Dry skin)
Psychiatric Exam
Psychiatric Exam: normal mood/affect
Course
<SUKH Castellanos - Last Filed: 05/18/24 23:39>
Orders/Labs/Results
Orders:
Orders
05/18/24 20:04
CBC/With Diff [Complete Blood Count/With Diff] Urgent
CMP [Comprehensive Metabolic Panel] Urgent
COVID-19 Antigen Urgent
Source: Nasal Swab
Lactic Acid Urgent
Magnesium Urgent
Comment: ADD ON
05/18/24 20:07
Orthostatic VS- Treatment ONCE
05/18/24 20:20
Electrocardiogram (*1) Urgent
Reason for Study: Fatigue / Weakness
EKG- Treatment ONCE
05/18/24 20:49
0.9% Sodium Chloride 1000 ml [Nss] 1,500 ml IV BOLUS
05/18/24 20:51
CefTRIAXone [Rocephin] 1,000 mg IV NOW STA
05/18/24 20:55
Prothrombin Time Urgent
Troponin I Urgent
05/18/24 21:14
Consult Nephrology [NEPHROLOGY CONSULT] Urgent
Consulting Provider: Ibeth Dueñas
Was physician already notified: Yes
Potassium Chloride [KCl] 40 meq 0.9% Sodium Chloride 250 ml [Nss] 250 ml IV NOW
05/18/24 21:20
Acetaminophen [Tylenol] 1,000 mg PO NOW STA
05/18/24 21:59
Admit/Transfer Patient As Directed
Co-Sign Provider:
Level of Care: Inpatient admission
Assign to:: Telemetry
Physician / Group: Lyle
Diagnosis: Hyponatremia, Hypokalemia, Hematuria
Reason for Telemetry: Arrhythmia
Date to Stop Telemetry: 05/21/24
Time to Stop Telemetry: 11:00
Reason for Hospitalization: Hyponatremia, Hypokalemia, Hematuria
Expected length of stay greater than two midnights?: Yes
ELOS- Estimated Length of Stay in days: 3
I certify the patient meets the requirements for IP care: Yes
Urinalysis Reflex To Culture Urgent
Date Specimen was Collected: 05/18/24
Time Specimen was Collected: 21:58
Urine Microscopic Reflex Cult Urgent
Urine Culture Urgent
ALBERTO Source: U
Specimen Description:
Date Specimen was Collected: 05/18/24
Time Specimen was Collected: 21:58
PRN Pain Medication Management As Directed
May give lesser potent ordered pain med per pt: Yes
preference::
Protocol:: Medication orders for pain may be administered in a
manner that supports deferring to patient preference
when the pt is:
- Requesting an ordered lesser potent pain medication.
Least to most potent pain medications are defined
as: acetaminophen < NSAID < tramadol < opioids
(morphine, oxycodone, hydromorphone).
- Requesting a lesser dose of the same medication IF
ORDERED.
- Requesting a less intrusive route of administration
if both routes are prescribed by the provider (PO <
IV).
05/18/24 22:03
Code Status As Directed
Resuscitation Status: Full Code
05/18/24 22:08
Add On- LAB Routine
Tests Added?: Magnesium
Potassium Chloride 10% Elixir [KCl Elixir] 40 meq PO NOW STA
05/21/24 11:00
DC Protocol for Telemetry ONCE
Abnormal Lab Results
05/18/24 05/18/24 05/18/24
20:04 20:55 21:59
RBC 3.20 L 10^6/uL
(4.70-6.10)
Hgb 9.4 L g/dL
(13.0-18.0)
Hct 26.9 L %
(39.0-52.0)
RDW 15.7 H %
(11.5-14.5)
Absolute Lymphs (auto) 0.7 L 10^3/uL
(1.2-3.4)
Immature Gran % 0.6 H %
(0-0.5)
Neutrophils % 79.5 H %
(42.2-75.2)
Lymphocytes % 10.5 L %
(20.5-51.1)
PT 43.9 H Sec
(11.4-14.6)
Sodium 123 L mmol/L
(135-145)
Potassium 2.6 L* mmol/L
(3.5-5.1)
Chloride 75 L mmol/L
(98-107)
Carbon Dioxide 39 H mmol/L
(22-30)
BUN 23 H mg/dl
(9-20)
Creatinine 0.6 L mg/dL
(0.7-1.3)
Glucose 156 H mg/dl
(70-99)
Lactic Acid 3.7 H mmol/L
(0.7-2.0)
Calcium 7.9 L mg/dl
(8.4-10.2)
Magnesium 1.5 L mg/dl
(1.6-2.3)
Total Bilirubin 2.3 H mg/dl
(0.2-1.3)
AST 15 L U/L
(17-59)
Alkaline Phosphatase 214 H U/L
(38-126)
Troponin I 0.119 H* ng/ml
Total Protein 5.7 L g/dl
(6.3-8.2)
Albumin 2.9 L g/dl
(3.5-5.0)
Urine Ketones Trace A
(Negative)
Ur Occult Blood Reflex 4+ A
(Negative)
Urine Bilirubin 1+ A
(Negative)
Urine Urobilinogen 3+ A
(Neg - 1+)
Leukocyte Esterase Rfl 2+ A
(Negative)
Urine RBC 11-15 A /HPF
(0-2)
Urine WBC (Reflex) >100 A /HPF
(0-5)
Urine Bacteria (Reflex) Moderate A
(Negative)
05/18/24 20:04
05/18/24 20:04
H/H low, anemia, Hyponatremia, Hypokalemia, Chloride low, Dehydration. Hyperglycemia, hypocalcemia, Total ivania mildly elevated. AST low. Alk phos elevation , COVID negative, Lactic acid elevated to 3.7, Total protein slightly low. Albumin low.
Troponin 0.119, PT 43.9 with INR 4.64, Urine positive for infection.
Vital Signs
Initial and Last Documented VS:
Initial Vital Signs
Temp Pulse Resp BP Pulse Ox
98.3 F 80 20 84/49 92
05/18/24 19:40 05/18/24 19:40 05/18/24 19:40 05/18/24 19:40 05/18/24 19:40
Last Documented Vital Signs
Temp Pulse Resp BP Pulse Ox
98.3 F 76 19 91/62 95
05/18/24 19:40 05/18/24 23:15 05/18/24 23:15 05/18/24 22:30 05/18/24 23:00
<Rachel Shell MD - Last Filed: 05/18/24 21:28>
Orders/Labs/Results
Orders:
Orders
05/18/24 20:04
CBC/With Diff [Complete Blood Count/With Diff] Urgent
CMP [Comprehensive Metabolic Panel] Urgent
COVID-19 Antigen Urgent
Source: Nasal Swab
Lactic Acid Urgent
Magnesium Urgent
Comment: ADD ON
05/18/24 20:07
Orthostatic VS- Treatment ONCE
05/18/24 20:20
Electrocardiogram (*1) Urgent
Reason for Study: Fatigue / Weakness
EKG- Treatment ONCE
05/18/24 20:49
0.9% Sodium Chloride 1000 ml [Nss] 1,500 ml IV BOLUS
05/18/24 20:51
CefTRIAXone [Rocephin] 1,000 mg IV NOW STA
05/18/24 20:55
Prothrombin Time Urgent
Troponin I Urgent
05/18/24 21:14
Consult Nephrology [NEPHROLOGY CONSULT] Urgent
Consulting Provider: Ibeth Dueñas
Was physician already notified: Yes
Potassium Chloride [KCl] 40 meq 0.9% Sodium Chloride 250 ml [Nss] 250 ml IV NOW
05/18/24 21:20
Acetaminophen [Tylenol] 1,000 mg PO NOW STA
05/18/24 21:59
Admit/Transfer Patient As Directed
Co-Sign Provider:
Level of Care: Inpatient admission
Assign to:: Telemetry
Physician / Group: Lyle
Diagnosis: Hyponatremia, Hypokalemia, Hematuria
Reason for Telemetry: Arrhythmia
Date to Stop Telemetry: 05/21/24
Time to Stop Telemetry: 11:00
Reason for Hospitalization: Hyponatremia, Hypokalemia, Hematuria
Expected length of stay greater than two midnights?: Yes
ELOS- Estimated Length of Stay in days: 3
I certify the patient meets the requirements for IP care: Yes
Urinalysis Reflex To Culture Urgent
Date Specimen was Collected: 05/18/24
Time Specimen was Collected: 21:58
Urine Microscopic Reflex Cult Urgent
Urine Culture Urgent
ALBERTO Source: U
Specimen Description:
Date Specimen was Collected: 05/18/24
Time Specimen was Collected: 21:58
PRN Pain Medication Management As Directed
May give lesser potent ordered pain med per pt: Yes
preference::
Protocol:: Medication orders for pain may be administered in a
manner that supports deferring to patient preference
when the pt is:
- Requesting an ordered lesser potent pain medication.
Least to most potent pain medications are defined
as: acetaminophen < NSAID < tramadol < opioids
(morphine, oxycodone, hydromorphone).
- Requesting a lesser dose of the same medication IF
ORDERED.
- Requesting a less intrusive route of administration
if both routes are prescribed by the provider (PO <
IV).
05/18/24 22:03
Code Status As Directed
Resuscitation Status: Full Code
05/18/24 22:08
Add On- LAB Routine
Tests Added?: Magnesium
Potassium Chloride 10% Elixir [KCl Elixir] 40 meq PO NOW STA
05/21/24 11:00
DC Protocol for Telemetry ONCE
Abnormal Lab Results
05/18/24 05/18/24 05/18/24
20:04 20:55 21:59
RBC 3.20 L 10^6/uL
(4.70-6.10)
Hgb 9.4 L g/dL
(13.0-18.0)
Hct 26.9 L %
(39.0-52.0)
RDW 15.7 H %
(11.5-14.5)
Absolute Lymphs (auto) 0.7 L 10^3/uL
(1.2-3.4)
Immature Gran % 0.6 H %
(0-0.5)
Neutrophils % 79.5 H %
(42.2-75.2)
Lymphocytes % 10.5 L %
(20.5-51.1)
PT 43.9 H Sec
(11.4-14.6)
Sodium 123 L mmol/L
(135-145)
Potassium 2.6 L* mmol/L
(3.5-5.1)
Chloride 75 L mmol/L
(98-107)
Carbon Dioxide 39 H mmol/L
(22-30)
BUN 23 H mg/dl
(9-20)
Creatinine 0.6 L mg/dL
(0.7-1.3)
Glucose 156 H mg/dl
(70-99)
Lactic Acid 3.7 H mmol/L
(0.7-2.0)
Calcium 7.9 L mg/dl
(8.4-10.2)
Magnesium 1.5 L mg/dl
(1.6-2.3)
Total Bilirubin 2.3 H mg/dl
(0.2-1.3)
AST 15 L U/L
(17-59)
Alkaline Phosphatase 214 H U/L
(38-126)
Troponin I 0.119 H* ng/ml
Total Protein 5.7 L g/dl
(6.3-8.2)
Albumin 2.9 L g/dl
(3.5-5.0)
Urine Ketones Trace A
(Negative)
Ur Occult Blood Reflex 4+ A
(Negative)
Urine Bilirubin 1+ A
(Negative)
Urine Urobilinogen 3+ A
(Neg - 1+)
Leukocyte Esterase Rfl 2+ A
(Negative)
Urine RBC 11-15 A /HPF
(0-2)
Urine WBC (Reflex) >100 A /HPF
(0-5)
Urine Bacteria (Reflex) Moderate A
(Negative)
05/18/24 20:04
05/18/24 20:04
Vital Signs
Initial and Last Documented VS:
Initial Vital Signs
Temp Pulse Resp BP Pulse Ox
98.3 F 80 20 84/49 92
05/18/24 19:40 05/18/24 19:40 05/18/24 19:40 05/18/24 19:40 05/18/24 19:40
Last Documented Vital Signs
Temp Pulse Resp BP Pulse Ox
98.3 F 76 19 91/62 95
05/18/24 19:40 05/18/24 23:15 05/18/24 23:15 05/18/24 22:30 05/18/24 23:00
<SUKH Castellanos - Last Filed: 05/18/24 23:39>
MDM/Problems Addressed
Differential Diagnosis Includes:
COVID, UTI
MDM/Problems Addressed:
This is a 83 year old male that comes in by ambulance with c/o fatigue. States that he went out to dinner with family and is now very tired.
Will check labs, Urine, Give IV fluids. Orthostatics and COVID.
Spoke with the Foot Piece Assembler. He would like us to hold off on the 3% and given the Saline and then recheck patient labs. Will admit to Hospitalist. Into see patient and family. Explained that he would be admitted as he is hyponatremic, Hypokalemic
and his Lactic acid is elevated most likely due to UTI. Hospitalist notified.
Chronic conditions affecting care:
Chronic indwelling catheter, History of UTI
Acute Exacerbation and/or Progression of Chronic Illness:
History of UTI, Indwelling Catheter.
<SUKH Castellanos - Last Filed: 05/18/24 23:39>
*EKG
Interpreted by ED Provider?: Yes
Heart Rate: 75
Rate: normal
Rhythm: a-fib
[place]: normal axis
Interval: long QT
QRS Pattern: normal QRS
Ischemia: no ischemia (Checked by Dr. Shell)
*Master Cosmetologist Interpretation
Rate: normal
Heart Rate: 86
Rhythm: a-fib
*Critical Care Note
Total Time (30-74mins, 75-104mins- exclusive of procedures): Not Applicable
ED Attending Note
<SUKH Castellanos - Last Filed: 05/18/24 23:39>
-
Portions of this chart may have been created with voice recognition software.� Occasional wrong word or��sound alike� substitutions may have occurred due to the inherent limitations of voice recognition software.
<Rachel Shell MD - Last Filed: 05/18/24 21:28>
ED Attending Note
Patient seen and examined by attending physician: Yes
I performed the substantive portion of visit, reviewed & personally made and approve the management plan that is documented in note by myself or JOSE.: Yes
ED Attending Note:
Pt with on emonth of progressive malaise, confusion, weakness generalized, noted to be even more confused today. No fever. Pt noted bilateral shoulder and leg pain, somewhat chonric. Recent leg edema and residual wound at L Achilles area noted,
no drainage. Pt pleasant, awake, aerlt, speaks in full sent but sl confused. Abd soft and nontndr, 2+ le edema. New hypoNa, hypoK noted...hypotension/lactic acid elevation, ?infx, urine pending.
Discharge Plan
Departure
Patient Disposition: Admit
Date of Disposition: 05/18/24
Time of Disposition: 21:23
Admit to: Telemetry
Presentation/result/management discussed w/ accepting MD/DO: Hospitalist
Patient with high blood pressure during this ER visit?: No
Condition: Good
Covid-19: Negative COVID-19
Discharge Problem:
Acute hyponatremia, Urinary tract infection, Acute hypokalemia
Interventions
Interventions:
*Risk Screen - Suicide Last Done: 05/18/24 19:40
*General Assessment Last Done: 05/18/24 19:40
*Neglect/Abuse Screening Last Done: 05/18/24 19:40
*Nursing Disposition Last Done: 05/18/24 23:37
ED-Male Genitourinary Assessment Last Done: 05/18/24 20:09
Discharge Date and Time
Discharge Date/Time: 05/18/24 23:38
[2024-05-18 20:10] LABS: % Basophils 0.3 % (0-2); % Eosinophils 0.6 % (0-6); % Immature Granulocytes 0.6 % (0-0.5); % Lymphocytes 10.5 % (20.5-51.1); % Monocytes 8.5 % (1.7-9.3); % Neutrophils 79.5 % (42.2-75.2); Absolute Lymphocytes 0.7 10^3/uL (1.2-3.4); Absolute Monocytes 0.6 10^3/uL (0.1-0.6); Absolute Neutrophils 5.6 10^3/uL (1.4-6.5); Hematocrit 26.9 % (39.0-52.0); Hemoglobin 9.4 g/dL (13.0-18.0); Mean Corp Hgb Conc. 34.9 g/dL (33.0-37.0); Mean Corpuscular Hgb 29.4 pg (27.0-31.0); Mean Corpuscular Volume 84.1 fL (80.0-94.0); Mean Platelet Volume 9.1 fL (7.4-10.4); Nucleated Red Blood Cells % 0 % (-); Platelet Count 189 10^3/uL (130-400); Red Cell Dist. Width 15.7 % (11.5-14.5)
[2024-05-18 20:27] LABS: COVID-19 Antigen Negative (Negative)
[2024-05-18 20:33] LABS: Lactic Acid 3.7 mmol/L (0.7-2.0)
[2024-05-18 21:01] LABS: ALT (SGPT) < 10 U/L (0-50); AST (SGOT) 15 U/L (17-59); Albumin 2.9 g/dl (3.5-5.0); Alkaline Phosphatase 214 U/L (38-126); Blood Urea Nitrogen 23 mg/dl (9-20); Calcium 7.9 mg/dl (8.4-10.2); Chloride 75 mmol/L (98-107); Estimated Creatinine Clearance 121 ml/min; Glucose 156 mg/dl (70-99); Potassium 2.6 mmol/L (3.5-5.1); Sodium 123 mmol/L (135-145); Total Bilirubin 2.3 mg/dl (0.2-1.3); Total Protein 5.7 g/dl (6.3-8.2); eGFR > 60.00
[2024-05-18 21:11] LABS: Carbon Dioxide 39 mmol/L (22-30)
[2024-05-18 21:18] LABS: INR 4.64; PT 43.9 Sec (11.4-14.6)
[2024-05-18 21:46] LABS: Troponin I 0.119 ng/ml
[2024-05-18] MEDS: KCL 270 MEQ IV (21:55)
[2024-05-18] MEDS: ROCEPHIN 1000 MG IV (21:55)
[2024-05-18] MEDS: NSS 1500 IV (21:56)
[2024-05-18 22:09] LABS: Urine Albumin Trace (Neg - Trace); Urine Bilirubin 1+ (Negative); Urine Character Slightly Cloudy (Clear); Urine Color Amber; Urine Glucose Negative (Negative); Urine Ketone Trace (Negative); Urine Leukocyte 2+ (Negative); Urine Nitrite Negative (Negative); Urine Occult Blood 4+ (Negative); Urine Specific Gravity 1.015 (<1.030); Urine Urobilinogen 3+ (Neg - 1+)
--- NOTE | 2024-05-18 22:11 | HPS.HSE ---
Family Physician
-
Family Physician: Travon Grant
Chief Complaint
-
Weakness, Swelling, Bloody urine
History of Present Illness
Patient is an 83y M with PMH significant for Parkinson's disease, A-Fib on Coumadin and CHF who presents to ED complaining of weakness, fatigue, LE swelling and pain in the legs and shoulders. History obtained from patient and his son at the
bedside. Son notes that patient has had marked functional decline over the past month. He has suffered multiple falls and been seen here in the ED 4 times in the past month for falls, weakness, LE edema, etc. No changes in medications that
patient / son are aware of - besides supplemental potassium and magnesium that were ordered by his PCP based on recent outpatient labs.
Family reports poor appetite / oral intake of food and fluids.
Patient has had marked LE swelling with blister formation / weeping over the past several weeks.
He complains of significant pain in both LEs and in both shoulders.
His speech has been more thick / sluggish.
Patient had Newman placed about one month ago for chronic AMBRIZ / BPH. He previously was straight cathed twice daily.
Today at [place], he was noted to have bloody urine and was sent back to the ED for evaluation. Family states that his urine recently has appeared similar to 'cola'.
Labs done here in the ED show multiple metabolic derangements and patient will be admitted for further evaluation and treatment.
Medical History
Past Medical History
Past Medical History: Reports Other
Additional Past Medical History:
Parkinson's Disease
Paroxysmal Atrial Fibrillation
Chronic HFpEF
ASCVD
DM-II, Diet-Controlled
DJD / Shoulders
Peripheral Neuropathy
BPH / AMBRIZ
Rheumatoid Arthritis
Past Surgical History: Reports Other
Additional Past Surgical History:
PTCA
Bilateral TKA
Bilateral DANNIELLE
Right Shoulder Surgery
Social History
Tobacco: Former Smoker (Quit smoking approx 40 years ago. Approx 40 pack years total.)
Alcohol: Daily (1 drink daily.)
Drug: None
Living: Longterm
Family History
Family History: Not pertinent
Allergies / Home Medications
Allergies reflects when Allergies were last updated in [facility].
Home Medications with original date entered in [facility]
Allergy/Medication List:
Allergies
Allergy/AdvReac Type Severity Reaction Status Date / Time
adhesive tape Allergy Redness Verified 05/18/24 19:37
celecoxib [From Celebrex] Allergy pain in Verified 05/18/24 19:37
the legs
and
cramping
dabigatran etexilate mesylate Allergy diarrhea Verified 05/18/24 19:37
[From Pradaxa]
demeclocycline Allergy Rash Verified 05/18/24 19:37
rosuvastatin calcium Allergy Myalgias/CRAMPS Verified 05/18/24 19:37
[From Crestor] IN LEGS
Tetracyclines Allergy Patient Verified 05/18/24 19:37
Denies
Home Medications
carbidopa ER 50 mg-levodopa 200 mg tablet,extended release 2 tab PO QID parkinson disease 06/11/22
cholecalciferol (vitamin D3) 50 mcg (2,000 unit) capsule (Vitamin D3) 25 mcg PO DAILY Supplement 06/11/22
pravastatin 10 mg tablet 10 mg PO DAILY High cholesterol 06/15/22
escitalopram oxalate 10 mg tablet 10 mg PO DAILY Mental Health/Anxiety 11/03/22
ezetimibe 10 mg tablet 10 mg PO HS High cholesterol 11/03/22
warfarin 2.5 mg tablet 2.5 mg PO DAILY Blood clot prevention/tx 11/03/22
furosemide 40 mg tablet 40 mg PO DAILY Fluid Retention/Swelling 03/15/23
folic acid 0.8 mg capsule 0.8 mg PO DAILY 05/18/24
ketoconazole 2 % topical cream 1 applic topical DAILY 05/18/24
methenamine hippurate 1 gram tablet 1 g PO BID 05/18/24
metolazone 5 mg tablet 5 mg PO DAILY 05/18/24
pramipexole 1.5 mg tablet,extended release 24 hr (Mirapex ER) 1.5 mg PO QID 05/18/24
Review of Systems
-
History Source: Patient and Family
A 12 point ROS was completed and negative except as noted: Yes
Constitutional: Reports Weight Loss (Patient reports 20 lbs weight loss in the past few months.); Denies Fever or Chills
EENT: Denies Sore Throat
Respiratory: Denies Cough or Trouble Breathing
Cardiac: Denies Chest Pain or Palpitations
Abdomen/GI: Reports Anorexia; Denies Abdominal Pain, Nausea, Vomiting, Diarrhea, Bloody Stools or Black Stools
: Reports Dark Urine and Other (Newman. Hematuria.); Denies Flank Pain
Musculoskeletal: Reports Joint Pain (bilateral shoulders) and Edema
Neurological: Reports Weakness; Denies Dizzy or Headache
Psych: Reports Depression; Denies Anxiety
Physical Exam
Vital Signs
Vital Signs
Temp Pulse Resp BP Pulse Ox
98.3 F 77 18 92/57 92
05/18/24 19:40 05/18/24 22:00 05/18/24 22:00 05/18/24 22:00 05/18/24 22:00
Physical Exam
General: Other (83y M in mild distress due to discomfort.)
HEENT: Other (Dry MM. Neck supple. No JVD.)
Respiratory: Other (Decreased BS throughout. No wheezes / rales / rhonchi.)
Cardiac: S1/S2 and Irregular Rhythm; No Murmur
GI: Soft, Non Tender, Non Distended and Normal Bowel Sounds
Musculoskeletal: No Clubbing, No Cyanosis and Other (3+ pitting edema b/l LEs. )
Skin: Other (Superficial skin breakdown over the L posterior heel / distal Achilles area. No bleeding / discharge.)
Neuro: AO x 3 and Other (Global / generalized weakness.)
Laboratory Results
-
05/18/24 20:04
05/18/24 20:04
Laboratory Results
PT 43.9 Sec (11.4-14.6) H 05/18/24 20:55
INR 4.64 05/18/24 20:55
Lactic Acid 3.7 mmol/L (0.7-2.0) H 05/18/24 20:04
Total Bilirubin 2.3 mg/dl (0.2-1.3) H 05/18/24 20:04
AST 15 U/L (17-59) L 05/18/24 20:04
ALT < 10 U/L (0-50) 05/18/24 20:04
Alkaline Phosphatase 214 U/L (38-126) H 05/18/24 20:04
Troponin I 0.119 ng/ml H* 05/18/24 20:55
Impression/Plan
-
A/P: Patient is an 83y M with PMH significant for Parkinson's disease, A-Fib and CHF who presents to ED for evaluation of hematuria as well as significant recent functional decline in the past month or so.
Hyponatremia
- Admit for further evaluation and treatment.
- Patient appears volume overloaded in terms of LE edema; however, he has dry mucous membranes and his relatively hypotensive and extremely weak.
- Suspect he is intravascularly volume depleted - likely due to diuretic regimen including Lasix and metolazone.
- Patient reports weight loss of 20 lbs in the past few months - despite significant edema.
- IVFs overnight with NSS + KCl.
- Check TFTs, cortisol, urine studies, etc.
- Nephrology evaluation for additional recommendations.
- Hold diuretic regimen acutely (see below).
Hypokalemia
- Likely due to diuresis as noted above.
- Hold Lasix / metolazone.
- Add Mg to ED labs and replace if needed.
- IVFs with supplemental KCl and adjust as needed.
Hematuria
BPH / AMBRIZ
Chronic Indwelling Newman
- UA potentially c/w CAUTI - though nitrites negative.
- Continue ceftriaxone for now pending culture data.
- Correct fluid balance / metabolic anomalies as noted above.
- Newman exchanged / replaced in the ED.
Chronic HFpEF
- Volume status difficult to assess as noted above.
- Prior Echo (11/2023) with normal LVEF, dilated atria and moderate pulmonary hypertension.
- Will update echo - ? progression in pulmonary hypertension which may be contributing to edema.
- Hold diuretic regimen for now as noted.
- Follow I/Os, daily weights, etc.
- Cardiology evaluation.
Non-Ischemic Myocardial Injury
- Patient has chronically abnormal troponin.
- EKG with non-specific T wave changes.
- Follow troponin to peak.
- Cardiology eval as noted above.
- Follow for any new symptoms, chest pain, dyspnea, etc.
Lactic Acidosis
- Suspect this is due to hypotension / hypovolemia versus UTI / sepsis.
- IVF replacement as noted above.
- Follow serial lactate levels.
- Follow for stable / improved BP, etc.
Paroxysmal Atrial Fibrillation
- Stable. Monitor on telemetry for now.
- Hold Coumadin acutely (INR today is 4.64).
- Follow INR daily and restart Coumadin when appropriate.
Parkinson's Disease
- Functional decline over the past month or so may be attributable to progression of Parkinsonsim; however, need to correct noted metabolic abnormalities first and then reassess.
- Continue usual Sinemet dosing with no changes.
- Patient on fairly high doses of Mirapex per [facility] MAR (1.5mg QID).
- Will hold this for now and follow clinically.
- PT / OT evaluations for gait / balance.
Normocytic Anemia
- Hgb 9.4 compared to baseline typically 12 - 14.
- Noted hematuria at [facility].
- Check iron studies.
- Hold Coumadin as noted above.
- Follow H&H for changes.
Peripheral Neuropathy
- Patient reports significant b/l LE pain due to neuropathy / edema / etc.
- Was previously on gabapentin but not presently on his list.
- Will restart gabapentin and adjust dosing as needed for improvement in symptoms.
DVT Prophylaxis: On Coumadin - adjust based on INR.
Code Status: Full
[2024-05-18] MEDS: KCL ELIXIR 40 MEQ PO (22:31)
[2024-05-18] MEDS: TYLENOL 1000 MG PO (22:31)
[2024-05-18 22:32] LABS: Urine Squamous Cell 0-2 /LPF (Few)
[2024-05-18 22:33] LABS: Urine Bacteria Moderate (Negative); Urine White Cell >100 /HPF (0-5)
[2024-05-18 22:47] LABS: Magnesium 1.5 mg/dl (1.6-2.3)
[2024-05-19] VITALS (8 sets, daily range): BP systolic 80–121; BP diastolic 54–64; PULSE 72–92; O2SAT 100; BMI 31.3; BMI 31.4
[2024-05-19 00:12] LABS: Osmolality Urine 469 mOsm/kg (300-900)
[2024-05-19 00:20] LABS: Iron 176 ug/dl (49-181)
[2024-05-19 00:23] LABS: Urine Sodium 11 mmol/L (30-90)
[2024-05-19] MEDS: NSS with KCL 40 MEQ 1000 IV ×2 (00:28→10:42)
[2024-05-19] MEDS: SINEMET CR 50/200 (EXTENDED RELEASE) 2 TABLET PO ×5 (00:28→21:18)
[2024-05-19 00:29] LABS: Percent Saturation 89 % (20-50); Total Iron Binding Capacity 196 ug/dl (261-462)
[2024-05-19 00:31] LABS: Troponin I 0.111 ng/ml
--- NOTE | 2024-05-19 00:56 | PTCARENOTE ---
[facility] admitted from ED. Patient AAO x3, placed on tele monitor and 2LNC. Patient in no acute distress. Bed alarm is on. Call holt within reach.
[2024-05-19 01:02] LABS: TSH Reflex To Free T4 2.53 uIU/ml (0.47-4.68)
[2024-05-19 06:44] LABS: Lactic Acid 1.1 mmol/L (0.7-2.0)
[2024-05-19 06:46] LABS: Hematocrit 23.3 % (39.0-52.0); Hemoglobin 8.1 g/dL (13.0-18.0); Mean Corp Hgb Conc. 34.8 g/dL (33.0-37.0); Mean Corpuscular Hgb 29.2 pg (27.0-31.0); Mean Corpuscular Volume 84.1 fL (80.0-94.0); Mean Platelet Volume 9.3 fL (7.4-10.4); Platelet Count 151 10^3/uL (130-400); Red Blood Cell Count 2.77 10^6/uL (4.70-6.10); Red Cell Dist. Width 15.8 % (11.5-14.5); White Blood Cell Count 4.6 10^3/uL (4.8-10.8)
[2024-05-19 06:46] LABS: PT 47.1 Sec (11.4-14.6)
[2024-05-19 06:49] LABS: INR 5.07
[2024-05-19 06:59] LABS: Troponin I 0.098 ng/ml
[2024-05-19 07:14] LABS: Glucose - Point of Care 128 mg/dl (70-99)
[2024-05-19 07:52] LABS: Cortisol, Random 9.7 ug/dl
[2024-05-19 07:55] LABS: Blood Urea Nitrogen 22 mg/dl (9-20); Calcium 7.4 mg/dl (8.4-10.2); Carbon Dioxide 39 mmol/L (22-30); Chloride 83 mmol/L (98-107); Estimated Creatinine Clearance 118 ml/min; Glucose 115 mg/dl (70-99); Magnesium 1.5 mg/dl (1.6-2.3); Phosphorus 2.3 mg/dl (2.5-4.5); Potassium 3.3 mmol/L (3.5-5.1); Sodium 124 mmol/L (135-145); eGFR > 60.00
[2024-05-19] MEDS: DESENEX/MITRAZOL/ZEASORB 1 APPLIC TOPICAL ×2 (08:13→21:18)
[2024-05-19] MEDS: FOLVITE 0.8 MG PO (08:13)
--- NOTE | 2024-05-19 08:35 | W.PN.HOSP.TC ---
Today's Communication/Plan
-
see bold
Assessment / Plan
Assessment / Plan
83y M with PMH significant for Parkinson's disease, A-Fib and CHF who presents to ED for evaluation of hematuria as well as significant recent functional decline in the past month or so.
Gen: NAD, Awake and alert
Eyes: EOMI, PERRLA, no scleral icterus.
Neck: supple.
CV: irreg/irreg, +S1/S2, no m/r/g.
Resp: CTAB, no rales, wheezes, or rhonchi.
Abd: +BS, soft, NT, ND
Skin: No rashes. 2+ B/L LE edema
Neuro: CN 2-12 intact, non-focal.
: dark urine without tacos hematuria
Psych: Normal mood and affect.
Hyponatremia
-on admission pt appeared volume overloaded in terms of LE edema; however, he had dry mucous membranes and was relatively hypotensive and extremely weak.
-likely intravascularly volume depleted due to diuretic regimen including Lasix and metolazone (both on hold)
-weight loss of 20 lbs in the past few months, despite significant edema (albumin 2.9)
-received IVFs O/N, Na now 124 from 123 on admission
-TSH and fasting cortisol normal
-c/s renal, will give 3% NS if renal in agreement
Hypokalemia:
-s/p IVFs with K
-diuretics on hold
-40meq PO K
-Hypomagnesemia, 2g IV Mg
Hematuria
-exacerbated by coumadin
-Hb drop for 9.4 to 8.1 is dilutional as well as acute blood loss anemia due to hematuria
-underlying BPH/AMBRIZ with chronic shell
-Shell exchanged/replaced in the ED
-UA potentially c/w CAUTI, though nitrites negative
-Continue ceftriaxone for now pending culture data
Chronic HFpEF
- Volume status difficult to assess as noted above.
- Prior Echo (11/2023) with normal LVEF, dilated atria and moderate pulmonary hypertension.
- Will update echo - ? progression in pulmonary hypertension which may be contributing to edema.
- Hold diuretic regimen for now as noted.
- Follow I/Os, daily weights, etc.
- Cardiology evaluation.
Non-Ischemic Myocardial Injury
- Patient has chronically abnormal troponin.
- EKG with non-specific T wave changes.
- Follow troponin to peak.
- Cardiology eval as noted above.
Parkinson's Disease:
- Functional decline over the past month or so may be attributable to progression of Parkinsonsim; however, need to correct noted metabolic abnormalities first and then reassess.
- Continue usual Sinemet dosing with no changes.
- Patient on fairly high doses of Mirapex per [facility] MAR (1.5mg QID).
- Will hold this for now and follow clinically.
- PT / OT evaluations for gait / balance.
Normocytic Anemia: Fe studies with low TIBC but normal Fe, trend Hb.
Lactic Acidosis, resolved with IVFs
Paroxysmal Atrial Fibrillation: holding Coumadin with supratherapeutic INR
Peripheral Neuropathy: Neurontin restarted
FULL/supratherapeutic INR
Total time spent on today's encounter was 50 minutes which included time spent in counseling the patient/family regarding diagnosis and treatment plan as listed above, goals of care, and symptom management. Case was discussed with nursing staff,
specialists, and care coordinators/case management. All labs and imaging personally reviewed by me. Remainder the time spent in detailed review of previous records, lab data, imaging, and other medical provider documentation.
Anticipated Discharge: 24 - 48 hours
Subjective/Interval History
-
Date of Service: May 19, 2024
No new complaints.
Objective Data
-
Labs:
Laboratory Results
05/18/24 05/18/24 05/19/24
20:04 20:55 06:24
WBC 4.6 L
Hgb 8.1 L
Hct 23.3 L
Plt Count 151 D
PT 43.9 H
INR 4.64
Sodium 123 L
Potassium 2.6 L*
Chloride 75 L
Carbon Dioxide 39 H
BUN 23 H
Creatinine 0.6 L
Glucose 156 H
Calcium 7.9 L
Total Bilirubin 2.3 H
AST 15 L
ALT < 10
Alkaline Phosphatase 214 H
05/19/24
06:25
WBC
Hgb
Hct
Plt Count
PT 47.1 H
INR 5.07 H*
Sodium 124 L
Potassium 3.3 L D
Chloride 83 L
Carbon Dioxide 39 H
BUN 22 H
Creatinine 0.5 L
Glucose 115 H
Calcium 7.4 L
Total Bilirubin
AST
ALT
Alkaline Phosphatase
Vital Signs:
Vital Signs
Temp Pulse Resp BP Pulse Ox
97.3 F 77 18 105/54 99
05/19/24 07:15 05/19/24 07:15 05/19/24 07:15 05/19/24 07:15 05/19/24 07:15
I&O
05/18/24 05/19/24 05/20/24
06:59 06:59 06:59
Intake Total 750 / 750
Output Total 200 / 200
Balance 550 / 550
[2024-05-19] MEDS: MAGNESIUM SULFATE 50 IV (08:58)
[2024-05-19] MEDS: NEURONTIN 100 MG PO ×3 (09:00→21:18)
[2024-05-19] MEDS: KLOR-CON 40 MEQ PO (09:00)
--- NOTE | 2024-05-19 09:39 | CON.CAR ---
Consultation
Consultation Request
Date/Time Consultation Requested: 05/19/2024 0800
Date/Time Consultation Performed: 05/19/2020 30888
Requesting Provider: Dr. Alvarenga
Performing Provider: Dr. Miller
Reason for Consultation: History of heart failure
Medical History
-
History of Present Illness:
83-year-old male with past medical history below who was admitted to the hospitalist service. Patient does not provide detailed history. Additional information and discussion with other providers. Apparently patient had functional decline over
the last month he has been seen in the ER for falls, weakness and lower extremity edema in addition there has been some periods of hematuria. No fevers. Patient is currently comfortable with no chest pain or shortness of breath he does have
bilateral lower extremity edema.
Labs notable for a drop in hemoglobin which was 9.4 on admission and then has dropped to 8.1 after additional hydration. Of note hemoglobin was 11.4 on 05/03/2024 and was 12.2 back in February 21. In addition patient with significant hyponatremia
with a sodium of 124 and potassium 3.3
Past medical history
HFpEF
CAD with distant history of balloon angioplasty 1995
Parkinson's disease
Permanent A-fib
Urinary retention. Self cath
Hypercholesterolemia
Diabetes
Kidney stones
Echocardiogram 12/20/2023 normal left ventricular function normal right ventricular size and mildly depressed right ventricular function moderate pulmonary hypertension estimated PA pressure 54 mmHg. IVC not well-visualized mild tricuspid
regurgitation mild mitral regurgitation
Past Medical History
Past Medical History: Other (As above)
Social History
Tobacco: Non-Smoker
Family History
Family History: Other (Negative for CAD)
Allergies / Home Medications
Allergy/AdvReac Type Severity Reaction Status Date / Time
adhesive tape Allergy Redness Verified 05/18/24 19:37
celecoxib [From Celebrex] Allergy pain in Verified 05/18/24 19:37
the legs
and
cramping
dabigatran etexilate mesylate Allergy diarrhea Verified 05/18/24 19:37
[From Pradaxa]
demeclocycline Allergy Rash Verified 05/18/24 19:37
rosuvastatin calcium Allergy Myalgias/CRAMPS Verified 05/18/24 19:37
[From Crestor] IN LEGS
Tetracyclines Allergy Patient Verified 05/18/24 19:37
Denies
�Medication �Instructions �Recorded �Confirmed �Type
carbidopa ER 50 mg-levodopa 200 mg 2 tab PO QID parkinson disease 06/11/22 05/18/24 History
tablet,extended release
cholecalciferol (vitamin D3) 50 25 mcg PO DAILY Supplement 06/11/22 05/18/24 History
mcg (2,000 unit) capsule (Vitamin
D3)
pravastatin 10 mg tablet 10 mg PO DAILY High cholesterol 06/15/22 05/18/24 History
escitalopram oxalate 10 mg tablet 10 mg PO DAILY Mental 11/03/22 05/18/24 History
Health/Anxiety
ezetimibe 10 mg tablet 10 mg PO HS High cholesterol 11/03/22 05/18/24 History
warfarin 2.5 mg tablet 2.5 mg PO DAILY Blood clot 11/03/22 05/18/24 History
prevention/tx
furosemide 40 mg tablet 40 mg PO DAILY Fluid 03/15/23 05/18/24 History
Retention/Swelling
folic acid 0.8 mg capsule 0.8 mg PO DAILY 05/18/24 05/18/24 History
ketoconazole 2 % topical cream 1 applic topical DAILY 05/18/24 05/18/24 History
methenamine hippurate 1 gram tablet 1 g PO BID 05/18/24 05/18/24 History
metolazone 5 mg tablet 5 mg PO DAILY 05/18/24 05/18/24 History
pramipexole 1.5 mg tablet,extended 1.5 mg PO QID 05/18/24 05/18/24 History
release 24 hr (Mirapex ER)
Review of Systems
-
Unable to obtain full review of systems at this time due to: Other (Patient provides limited history)
All other systems: Negative unless noted
Physical Exam
Vital Signs
Temp Pulse Resp BP Pulse Ox
97.3 F 77 18 105/54 99
05/19/24 07:15 05/19/24 07:15 05/19/24 07:15 05/19/24 07:15 05/19/24 07:15
Lab Results
05/19/24 06:24
05/19/24 06:25
Troponin I 0.098 ng/ml H* 05/19/24 06:25
Physical Exam
General: Other (Awake alert cooperative says he lives in [place] although he lives in assisted living [facility])
HEENT: Normocephalic, Anicteric and Other (Pupils equal neck with adenopathy no clear JVD)
Respiratory: Other (No wheezes rales or rhonchi)
Cardiac: Irregular Rhythm (Without murmur)
GI: Soft, Non Tender, Non Distended, Normal Bowel Sounds and Other (No mass)
Musculoskeletal: No Clubbing, No Cyanosis and Edema (Mostly lower legs bilaterally and ankles/feet)
Skin: Warm, Dry and Rash (No rash)
Neuro: Awake and Alert
Hematologic/Lymphatic: No Lymphadenopathy
Psych: Calm and Other (Cooperative)
Impression / Plan
-
reported functional decline over the past. Presentation may be multifactorial. Hyponatremia may be a significant factor. In addition patient has progressive anemia.
.
Hyponatremia. Additional treatment as directed by the hospitalist. Will monitor volume status and monitor respiratory status as patient is given some additional fluid.
.
Hypokalemia treatment directed by hospitalist
.
HFpEF. Respiratory status stable and chest x-ray without evidence of heart failure. Patient does have lower extremity edema
some which may be unrelated to heart failure. Monitor closely as hyponatremia being treated
-Reassessment of left ventricular function this admission
.
Low blood pressure low blood pressure. Relatively low. Patient is on significant diuretics as an outpatient which may contribute. Continue to monitor
-Follow-up echo
= Cortisol level
.
Anemia. Progressive anemia. Patient has had some hematuria and is maintained on anticoagulation. Additional management as directed by primary team
.
A-fib. Stable and rate controlled if patient has issues with more significant hematuria then anticoagulation will need to be held.
Data Reviewed
-
EKG: Report Reviewed by me
CT Scan: Report Reviewed by me
Medical Tests (Nuc Med, Echo etc): Report Reviewed by me
Labs: Labs Reviewed by me
--- NOTE | 2024-05-19 09:56 | PTOTSP ---
SPEECH THERAPY SWALLOW EVALUATION:
Patient exhibits clinical signs of oropharyngeal dysphagia, likely chronic related to Parkinson's disease. Patient endorsing recent unintentional weight loss of 10-12lbs over several weeks, difficulty with solids feeling stuck in throat. Currently
with low WBC, no CXR available. Breathing comfortably on 1L NC. Exhibiting inconsistent signs of aspiration at bedside with thin liquids via straw (1/3 trials). Recommend IDDSI Level 6 Soft and Bite size diet, thin liquids. Medications whole in
applesauce. Aspiration precautions: 1:1 assist as needed; 100% supervision to ensure use of strategies and monitor for signs of aspiration; NO STRAW; Small single sips via cup; small bites; slow rate of intake; alternate liquids/solids; ensure oral
cavity clear prior to next bite; check for pocketing; Upright positioning; remain upright 30 minutes after eating/drinking; Increased mobility as able/tolerated and oral care 3x/day to reduce risk for nosocomial infection. Close monitoring for signs
of aspiration. D/c oral diet and make NPO should pt exhibit signs of aspiration or a decline in mental or respiratory status. Recommend speech therapy to follow, assess diet tolerance and modify as appropriate, monitor CXR/labs/temperature,
determine indication for repeat instrumental assessment of swallowing (Inpatient vs. Outpatient), provide education regarding aspiration risks/precautions, and provide continued diagnostic swallow therapy as appropriate.
RECOMMEND:
1) IDDSI Level 6 Soft and Bite size diet, thin liquids
2) Medications whole in applesauce
3) Aspiration precautions: 1:1 assist as needed; 100% supervision to ensure use of strategies and monitor for signs of aspiration; NO STRAW; Small single sips via cup; small bites; slow rate of intake; alternate liquids/solids; ensure oral cavity
clear prior to next bite; check for pocketing; Upright positioning; remain upright 30 minutes after eating/drinking; Increased mobility as able/tolerated and oral care 3x/day to reduce risk for nosocomial infection. Close monitoring for signs of
aspiration. D/c oral diet and make NPO should pt exhibit signs of aspiration or a decline in mental or respiratory status
4) Speech therapy to follow, monitor CXR/labs/temperature, determine indication for repeat instrumental assessment of swallowing (Inpatient vs. Outpatient)
[2024-05-19 13:06] LABS: Troponin I 0.083 ng/ml
--- NOTE | 2024-05-19 14:14 | CM ---
Patient seen at bedside. Patient states that he lives in [place]. CM called to talk to nurse at [place] and was disconnected x2. CM called to patient son Rei. Per patient son patient needs to be transferred to another SNF facility and has a
caregiver 8 hours daily. Patient son stated he does not feel patient is safe at [place]. 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 Family asking to have referrals to [facility], [facility]. CM provided information re a place for mom and
[employer]. Patient PCP is Dr. Angulo and patient uses the pharmacy in [place]. Patient son indicated that he would call SNF options and follow up as needed. CM will continue to follow for discharge planning need.
Plan; SNF pending available bed.
--- NOTE | 2024-05-19 14:18 | W.CON.NEPH ---
Consultation
-
Date/Time Consultation Requested: 05/18/242113
Date/Time Consultation Performed: 05/19/24 1530
Requesting Provider: Shaun Yeh
Performing Provider: Ibeth Rothman
Reason for Consultation: hypoantremia, hypokalemia
Medical History
-
Chief Complaint: gen weakness, hematuria
History of Present Illness:
83y M with PMH significant for Parkinson's disease on sinemet, A-Fib on Coumadin and CHF on lasix, metolazone who presents to ED on 05/18 complaining of weakness, fatigue, LE swelling and pain in the legs and shoulders. Per family patient has had
marked functional decline over the past month and had suffered multiple falls for which seen here in the ED 4 times in the past month. There is concern that his diuretics were uptitrated. He saw PCP on 05/03 he was supposed to start potassium and
magnesium based on outpatient labs 05/03 na 133, k 3.2, mg 1.4. He did not get chance to start them yet. Family reports poor appetite / oral intake of food and fluids, lost wt too. He reports compliance with FR below 40 ounces/day.
Patient has had marked LE swelling with blister formation / weeping over the past several weeks however weeping has improved now. He complains of significant pain in both LEs and in both shoulders too. Patient had Shell placed about one month ago
for chronic AMBRIZ / BPH. He previously was straight cathed twice daily.
While he was at [place], he was noted to have bloody/cola urine with high INR and was sent back to the ED for evaluation yesterday.
Labs done in the ED show multiple metabolic derangements with sodium 123, k 2.6, mg 1.4. His BP were also soft and received NS. Today no significant improvement of sodium upto at 124.
He is more awake and interacting during visit, family is next to him. He offers no cp or sob. No nv/ Dizziness has improved. NO fever reported.
Past Medical History
Parkinson's Disease
Paroxysmal Atrial Fibrillation
Chronic HFpEF
ASCVD
DM-II, Diet-Controlled
DJD / Shoulders
Peripheral Neuropathy
BPH / AMBRIZ
Rheumatoid Arthritis
Past Surgical History: Other (PTCA Bilateral TKA Bilateral DANNIELLE Right Shoulder Surgery)
Social History
Tobacco: Former Smoker (quit 40yrs ago)
Alcohol: Daily (1 drink)
Living: Senior Living
Family History
no CKD
Family History: Not Pertinent
Allergies / Home Medications
Allergy/AdvReac Type Severity Reaction Status Date / Time
adhesive tape Allergy Redness Verified 05/18/24 19:37
celecoxib [From Celebrex] Allergy pain in Verified 05/18/24 19:37
the legs
and
cramping
dabigatran etexilate mesylate Allergy diarrhea Verified 05/18/24 19:37
[From Pradaxa]
demeclocycline Allergy Rash Verified 05/18/24 19:37
rosuvastatin calcium Allergy Myalgias/CRAMPS Verified 05/18/24 19:37
[From Crestor] IN LEGS
Tetracyclines Allergy Patient Verified 05/18/24 19:37
Denies
�Medication �Instructions �Recorded �Confirmed �Type
carbidopa ER 50 mg-levodopa 200 mg 2 tab PO QID parkinson disease 06/11/22 05/18/24 History
tablet,extended release
cholecalciferol (vitamin D3) 50 25 mcg PO DAILY Supplement 06/11/22 05/18/24 History
mcg (2,000 unit) capsule (Vitamin
D3)
pravastatin 10 mg tablet 10 mg PO DAILY High cholesterol 06/15/22 05/18/24 History
escitalopram oxalate 10 mg tablet 10 mg PO DAILY Mental 11/03/22 05/18/24 History
Health/Anxiety
ezetimibe 10 mg tablet 10 mg PO HS High cholesterol 11/03/22 05/18/24 History
warfarin 2.5 mg tablet 2.5 mg PO DAILY Blood clot 11/03/22 05/18/24 History
prevention/tx
furosemide 40 mg tablet 40 mg PO DAILY Fluid 03/15/23 05/18/24 History
Retention/Swelling
folic acid 0.8 mg capsule 0.8 mg PO DAILY Supplement 05/18/24 05/18/24 History
ketoconazole 2 % topical cream 1 applic topical DAILY Infection 05/18/24 05/18/24 History
methenamine hippurate 1 gram tablet 1 g PO BID Infection 05/18/24 05/18/24 History
metolazone 5 mg tablet 5 mg PO DAILY Fluid 05/18/24 05/18/24 History
Retention/Swelling
pramipexole 1.5 mg tablet,extended 1.5 mg PO QID Neurological 05/18/24 05/18/24 History
release 24 hr (Mirapex ER) Condition
Review of Systems
-
All complete 12 point ROS have been inquired and found negative other than stated in HPI
Physical Exam
Vital Signs
Vital Signs
Temp Pulse Resp BP Pulse Ox
98.5 F 74 18 93/55 100
05/19/24 11:21 05/19/24 11:21 05/19/24 11:21 05/19/24 11:21 05/19/24 11:21
Lab Results
WBC 4.6 10^3/uL (4.8-10.8) L 05/19/24 06:24
RBC 2.77 10^6/uL (4.70-6.10) L 05/19/24 06:24
Hgb 8.1 g/dL (13.0-18.0) L 05/19/24 06:24
Hct 23.3 % (39.0-52.0) L 05/19/24 06:24
Plt Count 151 10^3/uL (130-400) D 05/19/24 06:24
Sodium 124 mmol/L (135-145) L 05/19/24 06:25
Potassium 3.3 mmol/L (3.5-5.1) L D 05/19/24 06:25
Chloride 83 mmol/L (98-107) L 05/19/24 06:25
Carbon Dioxide 39 mmol/L (22-30) H 05/19/24 06:25
BUN 22 mg/dl (9-20) H 05/19/24 06:25
Creatinine 0.5 mg/dL (0.7-1.3) L 05/19/24 06:25
eGFR > 60.00 05/19/24 06:25
Glucose 115 mg/dl (70-99) H 05/19/24 06:25
Calcium 7.4 mg/dl (8.4-10.2) L 05/19/24 06:25
Phosphorus 2.3 mg/dl (2.5-4.5) L 05/19/24 06:25
Albumin 2.9 g/dl (3.5-5.0) L 05/18/24 20:04
Abnormal Lab Results
05/18/24 05/18/24 05/18/24
20:04 20:55 21:59
WBC
RBC 3.20 L
Hgb 9.4 L
Hct 26.9 L
RDW 15.7 H
Absolute Lymphs (auto) 0.7 L
Immature Gran % 0.6 H
Neutrophils % 79.5 H
Lymphocytes % 10.5 L
PT 43.9 H
INR
Sodium 123 L
Potassium 2.6 L*
Chloride 75 L
Carbon Dioxide 39 H
BUN 23 H
Creatinine 0.6 L
Glucose 156 H
Lactic Acid 3.7 H
Calcium 7.9 L
Phosphorus
Magnesium 1.5 L
TIBC 196 L
% Saturation 89 H
Total Bilirubin 2.3 H
AST 15 L
Alkaline Phosphatase 214 H
Troponin I 0.119 H*
Total Protein 5.7 L
Albumin 2.9 L
Urine Ketones Trace A
Ur Occult Blood Reflex 4+ A
Urine Bilirubin 1+ A
Urine Urobilinogen 3+ A
Leukocyte Esterase Rfl 2+ A
Urine RBC 11-15 A
Urine WBC (Reflex) >100 A
Urine Bacteria (Reflex) Moderate A
Urine Sodium 11 L
POC Glucose
05/18/24 05/19/24 05/19/24
23:58 06:24 06:25
WBC 4.6 L
RBC 2.77 L
Hgb 8.1 L
Hct 23.3 L
RDW 15.8 H
Absolute Lymphs (auto)
Immature Gran %
Neutrophils %
Lymphocytes %
PT 47.1 H
INR 5.07 H*
Sodium 124 L
Potassium 3.3 L D
Chloride 83 L
Carbon Dioxide 39 H
BUN 22 H
Creatinine 0.5 L
Glucose 115 H
Lactic Acid
Calcium 7.4 L
Phosphorus 2.3 L
Magnesium 1.5 L
TIBC
% Saturation
Total Bilirubin
AST
Alkaline Phosphatase
Troponin I 0.111 H* 0.098 H*
Total Protein
Albumin
Urine Ketones
Ur Occult Blood Reflex
Urine Bilirubin
Urine Urobilinogen
Leukocyte Esterase Rfl
Urine RBC
Urine WBC (Reflex)
Urine Bacteria (Reflex)
Urine Sodium
POC Glucose
05/19/24 05/19/24
07:13 12:29
WBC
RBC
Hgb
Hct
RDW
Absolute Lymphs (auto)
Immature Gran %
Neutrophils %
Lymphocytes %
PT
INR
Sodium
Potassium
Chloride
Carbon Dioxide
BUN
Creatinine
Glucose
Lactic Acid
Calcium
Phosphorus
Magnesium
TIBC
% Saturation
Total Bilirubin
AST
Alkaline Phosphatase
Troponin I 0.083 H*
Total Protein
Albumin
Urine Ketones
Ur Occult Blood Reflex
Urine Bilirubin
Urine Urobilinogen
Leukocyte Esterase Rfl
Urine RBC
Urine WBC (Reflex)
Urine Bacteria (Reflex)
Urine Sodium
POC Glucose 128 H
Physical Exam
General: Awake, Alert, Oriented, AOx3, No Distress and Nontoxic
HEENT: EOMI, Anicteric, Conjunctivae Clear, Facial Symmetry and Neck Supple
Respiratory: Normal Excursion, Nonlabored Respirations and Other (decreased BS)
Cardiac: S1/S2 and Regular Rate/Rhythm
Breast: Deferred by me
Abdomen: Soft, Nontender and Nondistended
Genito-urinary: Bloody Urine (cola urine in shell bag)
Musculoskeletal: No Cyanosis and Edema (2+ legs)
Skin: No Rash
Neuro: Nonfocal/Grossly Intact
Psych: Mood/afflect pleasant, Insight/judgement good and Appropriate
Data Reviewed
-
Labs: Labs Reviewed by me, Discussed with Patient and Discussed with Family
Assessment/Plan
-
IMP:
Hyponatremia
Hypokalemia
metabolic alkalosis
Hematuria
BPH / AMBRIZ
Anemia
Chronic Indwelling Shell
Chronic HFpEF
Non-Ischemic Myocardial Injury
Lactic Acidosis
Paroxysmal Atrial Fibrillation
Parkinson's Disease
Normocytic Anemia
Peripheral Neuropathy
PLan;
A/w gen weakness, hematuria
Acute on chr hyponatremia-U osmo high 469 and U na low 11
suspect intravascularly low specially with recent wt loss and soft Bps though has edema
could try low rate of 3% saline and off NS if repeat na remains low
cont to hold diuretics, TSH normal
follow FR 40ounces/day and monitor daily wts
replace k as it helps to improve hyponatremia too
replace mag
recheck lab now
BP remains soft, cortisol normal
abx per primary suspected UTI
follow h/h decreasing with IVF, high T sat 89%
d/w pt and family in detail , aware that all edema is not amenable to diuresis
encourage solute intake
[2024-05-19 16:07] LABS: Blood Urea Nitrogen 21 mg/dl (9-20); Calcium 7.8 mg/dl (8.4-10.2); Carbon Dioxide 37 mmol/L (22-30); Chloride 86 mmol/L (98-107); Estimated Creatinine Clearance 118 ml/min; Glucose 145 mg/dl (70-99); Potassium 3.9 mmol/L (3.5-5.1); Sodium 124 mmol/L (135-145); eGFR > 60.00
[2024-05-19] MEDS: SODIUM CHLORIDE 3% 250 IV (17:31)
[2024-05-19 21:09] LABS: Glucose - Point of Care 177 mg/dl (70-99)
[2024-05-19] MEDS: ROCEPHIN 1000 MG IV (21:18)
[2024-05-19] MEDS: STERILE WATER FOR INJECTION 10 ML IV (21:19)
[2024-05-20] VITALS (7 sets, daily range): BP systolic 91–132; BP diastolic 56–77; PULSE 78–88; O2SAT 95; BMI 31.8
[2024-05-20] MEDS: SINEMET CR 50/200 (EXTENDED RELEASE) 2 TABLET PO ×4 (07:49→21:25)
[2024-05-20] MEDS: FOLVITE 0.8 MG PO (07:49)
[2024-05-20] MEDS: NEURONTIN 100 MG PO ×3 (07:49→21:25)
[2024-05-20 08:01] LABS: Hematocrit 25.1 % (39.0-52.0); Hemoglobin 8.9 g/dL (13.0-18.0); Mean Corp Hgb Conc. 35.5 g/dL (33.0-37.0); Mean Corpuscular Hgb 30.4 pg (27.0-31.0); Mean Corpuscular Volume 85.7 fL (80.0-94.0); Platelet Count 152 10^3/uL (130-400); Red Blood Cell Count 2.93 10^6/uL (4.70-6.10); Red Cell Dist. Width 16.6 % (11.5-14.5); White Blood Cell Count 4.4 10^3/uL (4.8-10.8)
[2024-05-20] MEDS: TYLENOL 650 MG PO (08:04)
[2024-05-20 08:05] LABS: PT 42.9 Sec (11.4-14.6)
[2024-05-20] MEDS: DESENEX/MITRAZOL/ZEASORB 1 APPLIC TOPICAL ×2 (08:10→21:34)
[2024-05-20 08:24] LABS: Albumin 2.6 g/dl (3.5-5.0); Blood Urea Nitrogen 17 mg/dl (9-20); Calcium 8.1 mg/dl (8.4-10.2); Carbon Dioxide 37 mmol/L (22-30); Chloride 89 mmol/L (98-107); Estimated Creatinine Clearance 118 ml/min; Glucose 90 mg/dl (70-99); Magnesium 1.8 mg/dl (1.6-2.3); Phosphorus 2.3 mg/dl (2.5-4.5); Sodium 128 mmol/L (135-145); eGFR > 60.00
[2024-05-20 08:30] LABS: Potassium 3.9 mmol/L (3.5-5.1)
--- NOTE | 2024-05-20 08:51 | WOUNDNOTE ---
WOC RN Note: Faxed a home ready care vac request to /[facility]. Mary Ortiz confirmed she received the fax.
--- NOTE | 2024-05-20 10:04 | W.PN.CD ---
Impression / Plan
-
reported functional decline over the past. Presentation may be multifactorial. Hyponatremia may be a significant factor. In addition patient has progressive anemia.
.
Hyponatremia. Additional treatment as directed by the hospitalist. Will monitor volume status and monitor respiratory status as patient is given some additional fluid.
.
Hypokalemia treatment directed by hospitalist
.
HFpEF. Respiratory status stable and chest x-ray without evidence of heart failure. Patient does have lower extremity edema
some which may be unrelated to heart failure. Monitor closely as hyponatremia being treated
-Reassessment of left ventricular function this admission
.
Low blood pressure low blood pressure. Relatively low. Patient is on significant diuretics as an outpatient which may contribute. Continue to monitor
-Follow-up echo
= Cortisol level
.
Anemia. Progressive anemia. Patient has had some hematuria and is maintained on anticoagulation. Additional management as directed by primary team
.
A-fib. Stable and rate controlled if patient has issues with more significant hematuria then anticoagulation will need to be held.
Physical Exam
Vital Signs/Labs
Vital Signs
Temp Pulse Resp BP Pulse Ox
98.7 F 86 20 101/61 97
05/20/24 07:35 05/20/24 07:35 05/20/24 07:35 05/20/24 07:35 05/20/24 07:35
05/19/24 05/20/24 05/21/24
06:59 06:59 06:59
Actual Weight 102.2 kg 103.5 kg
05/20/24 07:13
05/20/24 07:13
PT 42.9 Sec (11.4-14.6) H 05/20/24 07:13
INR 4.50 05/20/24 07:13
Magnesium 1.8 mg/dl (1.6-2.3) 05/20/24 07:13
LAB Results
05/18/24 05/18/24 05/19/24
20:55 23:58 06:25
Troponin I 0.119 H* 0.111 H* 0.098 H*
05/19/24
12:29
Troponin I 0.083 H*
Data Reviewed
-
Date of Service: May 20, 2024
--- NOTE | 2024-05-20 10:06 | WOUNDNOTE ---
[facility] RN note: Patient admitted with with hypoxia, hypokalemia, decreased po, hematuria, LE swelling. Patient admitted from [place]. SNF planned when discharged.
See H&P for complete history.
PMH: Parkinson's, a fib (Coumadin), CHF, Newman for retention, BPH, ASCVD, DJD, neuropathy, RA, PTCA, angioplasty, bilateral DANNIELLE, bilateral DANNIELLE, R shoulder surgery, former smoker.
Wound Location and type/assessment: Patient admitted with: full thickness suspect to subcutaneous layer L Achilles suspect r/t rubbing and edema and possible pressure, pink with yellow slough and local erythema. +2-3 LE edema. +Pedal pulses heard
via portable Doppler. 03/15/23 LE venous Doppler negative for DVT. 10/05/17 arterial Doppler SU non compressible, R toe pressure .63, L toe pressure .78. Sacrum to melissa red. L lateral thigh small scabbed abrasion. Linear scabbed abrasions on his
penis near meatus on L. Blanchable red heels.
Appetite: fair.
Pressure redistribution devices in place: Centrella Max air bed. Patient needs help to turn in bed.
Plan: Patient incontinent of large soft brown stool. SANJU Guzmán performed malini care. Changed LLE dressing. Patient turned and repositioned with help from SANJU Guzmán. Heels off bed with pillows with air chair cushion on top under calf. Dr. De Los Santos was in
and approved local wound care and bilateral knee high Tubigrip compression as tolerated. Discussed with SANJU Guzmán.
Care plan to be updated and will follow as needed.
Note to case management of equipment requested for discharge: Air mattress recommended at SNF.
Recommend follow up at wound care center upon discharge.
--- NOTE | 2024-05-20 10:54 | W.PN.NEPH.PH ---
Today's Communication / Plan
-
Continue fluid restriction and withholding diuretics
For echocardiogram
Follow BMP
Assessment/Plan
-
IMP:
Hyponatremia
Hypokalemia
metabolic alkalosis
Hematuria
BPH / AMBRIZ
Anemia
Chronic Indwelling Newman
Chronic HFpEF
Non-Ischemic Myocardial Injury
Lactic Acidosis
Paroxysmal Atrial Fibrillation
Parkinson's Disease
Normocytic Anemia
Peripheral Neuropathy
PLan;
A/w gen weakness, hematuria
Acute on chr hyponatremia-U osmo high 469 and U na low 11
suspect intravascularly low specially with recent wt loss and soft Bps though has edema
Status post 3% saline and off NS , sodium up to 128
cont to hold diuretics and SSRI, TSH normal
follow FR 40ounces/day and monitor daily wts
replaced k as it helps to improve hyponatremia too
replace mag
BP remains soft, cortisol normal , for echocardiogram today
abx per primary suspected UTI
follow h/h decreasing with IVF, high T sat 89%
Previously d/w pt and family in detail , aware that all edema is not amenable to diuresis, low urine sodium was consistent with volume depletion
No evidence of nephrotic syndrome to explain chronic edema
Low albumin levels likely complicating hemodynamics
encourage solute intake
-
-
Date of Service: May 20, 2024
CC / HPI / ROS
-
Chief Complaint:
Hyponatremia
History of Present Illness:
Serum sodium level up to 128 following 3% saline infusion
Hemodynamically labile
Review of Systems:
Nonoliguric no chest pain or shortness of breath
Labs
-
Labs:
WBC 4.4 10^3/uL (4.8-10.8) L 05/20/24 07:13
RBC 2.93 10^6/uL (4.70-6.10) L 05/20/24 07:13
Hgb 8.9 g/dL (13.0-18.0) L 05/20/24 07:13
Hct 25.1 % (39.0-52.0) L 05/20/24 07:13
Plt Count 152 10^3/uL (130-400) 05/20/24 07:13
Sodium 128 mmol/L (135-145) L 05/20/24 07:13
Potassium 3.9 mmol/L (3.5-5.1) 05/20/24 07:13
Chloride 89 mmol/L (98-107) L 05/20/24 07:13
Carbon Dioxide 37 mmol/L (22-30) H 05/20/24 07:13
BUN 17 mg/dl (9-20) 05/20/24 07:13
Creatinine 0.5 mg/dL (0.7-1.3) L 05/20/24 07:13
eGFR > 60.00 05/20/24 07:13
Glucose 90 mg/dl (70-99) 05/20/24 07:13
Calcium 8.1 mg/dl (8.4-10.2) L 05/20/24 07:13
Phosphorus 2.3 mg/dl (2.5-4.5) L 05/20/24 07:13
Albumin 2.6 g/dl (3.5-5.0) L 05/20/24 07:13
Physical Exam
-
Vital Signs:
Vital Signs
Temp Pulse Resp BP Pulse Ox
98.7 F 86 20 101/61 97
05/20/24 07:35 05/20/24 07:35 05/20/24 07:35 05/20/24 07:35 05/20/24 07:35
Cardiovascular:: Regular rate and rhythm
Respiratory:: Bilateral: CTA
Lung Excursion:: Normal
Abdomen:: Nontender and Soft
Extremity Edema:: +1: Bilateral:
--- NOTE | 2024-05-20 11:06 | W.PN.CD ---
Addendum entered and electronically signed by Javy Ballard MD 05/20/24 18:37:
Echo with normal LV and improvedsystolic function. Will follow tr and phtn longitudinally.
When appropriate would transition to DOAC if affordable.
Will see again at your request.
Addendum entered and electronically signed by Javy Ballard MD 05/20/24 13:52:
I saw and examined the patient.
The C++ PROFESSOR's note was reviewed and I agree with the note.
Comment: He just feels 'punky' but he is otherwise without complaint. Dtr and caregiver at the bedside. He had n/v to pradaxa. He has drink this weekend but just one. He has not been drinking much at all any more. His Na is improving. On exam he
is irreg irreg, lungs cta, extensive le edema with tubigrips. There is extensive lymphedema. INR is elevated, we discussed drinking and the CI to anticoagulation. He undersstands. Would consider transitioning to eliquis if affordable once INR <2
for decreased bleeding risk.
Original Note:
Today's Communication / Plan
-
Echocardiogram
Impression / Plan
-
BACKGROUND: 89M with HFpEF, CAD (POBA, 1996), permanent atrial fibrillation (on warfarin), urinary retention, NIDDM, and Parkinson's disease presented with weakness
[employer]: Dr. Epps
Lactic acidosis, 3.7 on admission, resolved with fluid resuscitation
Hematuria with anemia
-UTI, on Rocephin
-Transfusion per primary
Abnormal troponin,
-Peak on admission 0.119
-Denies chest pain
HFpEF, chronic
-LE edema is chronic, diuretics on hold per Nephrology
-Continue daily weight
Hypotension, normal cortisol
Hyponatremia
-Diuretics on hold, per Nephrology
-S/P 3% NSS
Permanent atrial fibrillation
-Rate controlled without AV antoni agent
-Oral Anticoagulation: Warfarin, INR 4.64 -> 5.07 -> 4.50, he has had supratherapeutic INRs in the past
-[id number]: score at least 6 (Heart failure, HTN, age 75 or more, Diabetes Mellitus, Vascular disease)
CAD, stable without chest pain
Moderate pulmonary HTN, PAS 54 mmHg
NIDDM, Hgba1c 7.0% (02/2024)
Weakness, likely multifactorial, per primary
Parkinson's disease, per primary
HLD, statin intolerant
Former smoker, continued cessation recommended
SUBJECTIVE:
Denies chest pain. Weakness is unchanged.
Physical Exam
Vital Signs/Labs
Vital Signs
Temp Pulse Resp BP Pulse Ox
98.7 F 86 20 101/61 97
05/20/24 07:35 05/20/24 07:35 05/20/24 07:35 05/20/24 07:35 05/20/24 07:35
05/19/24 05/20/24 05/21/24
06:59 06:59 06:59
Actual Weight 102.2 kg 103.5 kg
05/20/24 07:13
05/20/24 07:13
PT 42.9 Sec (11.4-14.6) H 05/20/24 07:13
INR 4.50 05/20/24 07:13
Magnesium 1.8 mg/dl (1.6-2.3) 05/20/24 07:13
LAB Results
05/18/24 05/18/24 05/19/24
20:55 23:58 06:25
Troponin I 0.119 H* 0.111 H* 0.098 H*
05/19/24
12:29
Troponin I 0.083 H*
Physical Exam
Constitutional: No acute distress and Comfortable
EENT: Anicteric and Moist mucous membranes
Cardiovascular: Rhythm/rate is irregular, Pedal edema present and S1S2 is normal
Respiratory: Respiratory effort normal and Lungs clear to auscul.
GI: Soft, Distention absent, Flat, Non tender and Normal bowel sounds
Neuro/Psych: AO x 3
Other: Skin (warm and dry)
Data Reviewed
-
Date of Service: May 20, 2024
Labs: Labs Reviewed by me
[2024-05-20] MEDS: REFRESH EYE DROPS (PF) 1 DROPS OPHTH (14:10)
--- NOTE | 2024-05-20 15:43 | W.PN.HOSP.TC ---
Addendum entered and electronically signed by Ronald Gill MD 05/20/24 21:25:
Attending Addendum-
I saw and evaluated the patient. I reviewed the resident�s note and agree with findings and plan as documented in the resident�s note. Sub: feels weak. no further hematuria 'I dont wanna go back to [facility]' Full 12 point ROS reviewed and negative
except as documented Exam: Vitals reviewed in chart GEN-NAD heart irreg irreg lungs clear abd soft LE +1 pitting edema shell in place with concentrated urine Plan:
# Hyponatremia
- improving
- likely intravascularly volume depleted
- weight loss of 20 lbs in the past few months, despite significant edema (albumin 2.9)
- hold IVF and diuretics
- TSH and fasting cortisol normal
- cont FRR
- repeat in am
# Hypokalemia
- replete prn
- resolved
- repeat BMP in am
#Hypophosphatemia
-replete
- repeat in am
#Hypomagnesemia-
- resolved
- replete prn
- repeat in am
# Hypocalcemia
- correct due to hypoalb
- repeat in am
# Hematuria
-resolved
# BPH/AMBRIZ/Urinary retention
- cont chronic shell
- Shell exchanged/replaced in the ED
# UTI
- UA potentially c/w CAUTI- cx-GNB await sensitivities
- Continue ceftriaxone for now
# Chronic HFpEF
- echo 05/20-Normal biventricular size and systolic function without regional wall motion
abnormality. Mild mitral stenosis. Moderate to severe tricuspid regurgitation with at least moderate pulmonary
hypertension. Compared to the previous echo on 12/20/2023 the RV systolic function seems
improved.
- Hold diuretic regimen for now
- Follow I/Os, daily weights
- Cardiology input appreciated
# Non-Ischemic Myocardial Injury
- Patient has chronically abnormal troponin.
- EKG with non-specific T wave changes.
- Cardiology input appreciated
# Parkinson's Disease:
- Continue Sinemet dosing with no changes.
- Will hold mirapex for now and follow clinically.
- PT / OT evaluations for gait / balance.
# Normocytic Anemia-Fe studies with low TIBC but normal Fe, trend Hb.
# Lactic Acidosis- resolved with IVFs
# Paroxysmal Atrial Fibrillation- hold Coumadin with supratherapeutic INR- transition to Eliquis
# Peripheral Neuropathy- cont Neurontin
# HLD- cont pravastatin
# Depression- lexapro on hold
FULL--> DNR patient AAO x 3
Dispo eventual DC to SNF not [facility]
Time spent coordinating care, review of plan of care with resident, personally reviewed records in EMR, med rec, consults, notes, labs, radiology, d/w nursing � 59 mins
Original Note:
Today's Communication/Plan
-
.
Assessment / Plan
Assessment / Plan
Patient is an 83-year-old male with past medical history significant for Parkinson's, A-fib, CHF and wounds who initially presented for evaluation of cola colored urine and progressive weakness over the last month.
Hyponatremia
-Continue to hold Lasix and metolazone due to dry mucous membranes despite looking volume overloaded and lower extremities
-weight loss of 20 lbs in the past few months, despite significant edema (albumin 2.9)
-Patient on 3% normal saline for sodium repletion due to consistent hyponatremia
-TSH and fasting cortisol normal
Hypokalemia:
-Hypokalemia currently stable status post IV fluids with K
� Transition patient to 40 mg p.o. K
-Give 2 g IV magnesium if mag value dips below normal
Hematuria
�Hemoglobin dropped from 9.4-8.1 due to hematuria, exacerbated by Coumadin.
-UA shows gram-negative bacilli and no MRSA. Continue ceftriaxone for management.
Chronic HFpEF
- Since volume status is unclear decision made to hold diuretics.
- Continue to follow I/Os, daily weights, fluid restriction and hold diuretics
Parkinson's Disease:
- Functional decline over the past month or so may be attributable to progression of Parkinsonsim. Continue Sinemet. Will hold Mirapex until metabolically stable.
- PT / OT evaluations for gait / balance needed prior to discharge.
� Patient will potentially need to be transferred to SNF versus remaining at [facility]
Paroxysmal Atrial Fibrillation:
-holding Coumadin with supratherapeutic INR
-Consulted social work transition to Eliquis from Coumadin.
� Check, renal function, weight status prior to starting Eliquis.
Peripheral Neuropathy: Neurontin restarted
FULL/supratherapeutic INR
Total time spent on today's encounter was 50 minutes which included time spent in counseling the patient/family regarding diagnosis and treatment plan as listed above, goals of care, and symptom management. Case was discussed with nursing staff,
specialists, and care coordinators/case management. All labs and imaging personally reviewed by me. Remainder the time spent in detailed review of previous records, lab data, imaging, and other medical provider documentation.
Anticipated Discharge: > 48 hours
Subjective/Interval History
-
Date of Service: May 20, 2024
Patient is an 83-year-old male with past medical history significant for Parkinson's, A-fib, CHF and wounds who initially presented for evaluation of cola colored urine and progressive weakness over the last month. Patient has had significant
increase in bilateral lower edema swelling, edema and wound development. He currently has a full-thickness Achilles wound on the right leg. Patient was seen by wound nurse today and evaluated. Consult placed patient has chronic Shell placed 1
month ago for chronic BPH. Shell continues to reduce red urine. Patient had no acute events overnight.
Objective Data
-
Labs:
Laboratory Results
05/20/24
07:13
WBC 4.4 L
Hgb 8.9 L
Hct 25.1 L
Plt Count 152
PT 42.9 H
INR 4.50
Sodium 128 L
Potassium 3.9
Chloride 89 L
Carbon Dioxide 37 H
BUN 17
Creatinine 0.5 L
Glucose 90
Calcium 8.1 L
Vital Signs:
Vital Signs
Temp Pulse Resp BP Pulse Ox
97.3 F 86 18 132/77 96
05/20/24 13:32 05/20/24 13:32 05/20/24 13:32 05/20/24 13:32 05/20/24 13:32
I&O
05/19/24 05/20/24 05/21/24
06:59 06:59 06:59
Intake Total 750 / 750 480 / 480
Output Total 200 / 200 1125 / 1125
Balance 550 / 550 -645 / -645
Review of Systems
-
History Source: Patient
Constitutional: Reports Weakness and Other (Pain in legs bilaterally)
EENT: Reports Dry Eyes
Respiratory: Reports No Symptoms
Cardiac: Reports No Symptoms
Abdomen/GI: Reports No Symptoms
Genitourinary: Reports Dark Urine
Musculoskeletal: Reports Muscle Pain and Edema
Skin: Reports Sores and Other
Neuro: Reports Weakness
Physical Exam
-
General: Well Developed, Well Nourished and Comfortable
Cardiac: Irregular Rhythm
GI: Soft, Nontender, Nondistended and Normal Bowel Sounds
Musculoskeletal: Edema, Right Lower Extrem and Edema, Left Lower Extrem
Skin: Warm, Dry and Other (Full-thickness wounds on leg)
Neuro: AO x 3 and Slurred Speech
Psych: Calm
Data Reviewed
-
Medical Tests (Nuc Med, Echo etc): Report Reviewed by me
Labs: Labs Reviewed by me and Discussed with Physician
Old Records: Reviewed
[2024-05-20] MEDS: ROCEPHIN 1000 MG IV (21:27)
[2024-05-20] MEDS: STERILE WATER FOR INJECTION 10 ML IV (21:34)
[2024-05-21 00:39] VITALS: BP 106/62; BP 91/56; PULSE 81; PULSE 82
[2024-05-21 03:00] VITALS: BP 115/71
[2024-05-21 06:00] VITALS: BMI 31.8
[2024-05-21 07:20] VITALS: BP 111/64; BP 114/60; PULSE 81; PULSE 84
--- NOTE | 2024-05-21 07:27 | W.PN.HOSP.TC ---
Addendum entered and electronically signed by Ronald Gill MD 05/21/24 23:44:
Attending Addendum-
I saw and evaluated the patient. I reviewed the resident�s note and agree with findings and plan as documented in the resident�s note. Sub: continues to feel weak but states he is improved. no further hematuria. Full 12 point ROS reviewed and
negative except as documented Exam: Vitals reviewed in chart GEN-NAD heart irreg irreg lungs crackles at bases abd soft LE +1 pitting edema shell in place with concentrated urine Plan:
# Hyponatremia
- appears hypervolemic
- stable
- hold IVF and diuretics
- restart diuretics in am
- cont FRR
- repeat BMP in am
# Hypokalemia
- replete prn
- resolved
- repeat BMP in am
# Leukopenia-
- cont to trend
- repeat CBC in am
#Hypophosphatemia
- replete prn
- repeat in am
#Hypomagnesemia-
- resolved
- replete prn
- repeat in am
# Hypocalcemia
- correct due to hypoalb
- repeat in am
# Hematuria
-resolved
# BPH/AMBRIZ/Urinary retention
- cont chronic Shell
- Shell exchanged/replaced in the ED
# UTI
- klebsiella
- Continue ceftriaxone day 3
# Chronic HFpEF
- echo 05/20-Normal biventricular size and systolic function without regional wall motion
abnormality. Mild mitral stenosis. Moderate to severe tricuspid regurgitation with at least moderate pulmonary
hypertension. Compared to the previous echo on 12/20/2023 the RV systolic function seems
improved.
- Hold diuretic regimen for now
- restart in am
- Follow I/Os, daily weights
- Cardiology input appreciated
# Non-Ischemic Myocardial Injury
- Patient has chronically abnormal troponin.
- EKG with non-specific T wave changes.
- Cardiology input appreciated
# Parkinson's Disease:
- Continue Sinemet dosing with no changes.
- Will hold mirapex for now and follow clinically.
- PT / OT evaluations for gait / balance.
# Normocytic Anemia-Fe studies with low TIBC but normal Fe, trend Hb.
# Lactic Acidosis- resolved with IVFs
# Paroxysmal Atrial Fibrillation- hold Coumadin with supratherapeutic INR- transition to Eliquis when INR < 2
# Peripheral Neuropathy- cont Neurontin
# HLD- cont pravastatin
# Depression- lexapro on hold
FULL--> DNR patient AAO x 3
Dispo eventual DC to SNF not [facility]
Time spent coordinating care, review of plan of care with resident, personally reviewed records in EMR, med rec, consults, notes, labs, radiology, d/w nursing � 52 mins
Original Note:
Today's Communication/Plan
-
.
Assessment / Plan
Assessment / Plan
Patient is an 83-year-old male with past medical history significant for Parkinson's, A-fib, CHF and wounds who initially presented for evaluation of cola colored urine and progressive weakness over the last month.
Hyponatremia
-Continue to hold Lasix and metolazone due to dry mucous membranes despite looking volume overloaded and lower extremities.
-Per conversations with Dr. Drew, recommendations made to hold Lasix for 1 more day and to restart oral outpatient dosing tomorrow
-weight loss of 20 lbs in the past few months, despite significant edema (albumin 2.9)
�Sodium at 128 today
-Continue daily weights, fluid restriction for hyponatremia
-TSH and fasting cortisol normal
Hypokalemia:
-Resolved
� Transition patient to 40 mg p.o. K
Hypophosphatemia
-Resolved
-Continue to monitor
Hypomagnesemia-
- resolved
- Give 2 g IV magnesium if mag value dips below normal
Hypocalcemia
-Resolved
-Continue to monitor
BPH/ AMBRIZ/Urinary Retention
- continue management of chronic shell
Hematuria
�Hemoglobin dropped from 9.4-8.1 due to hematuria, exacerbated by Coumadin.
- resolved
UTI
-UA shows gram-negative bacilli and no MRSA. Continue ceftriaxone for management.
Chronic HFpEF
- Since volume status is unclear decision made to hold diuretics.
- Continue to follow I/Os, daily weights, fluid restriction and hold diuretics
Parkinson's Disease:
- Functional decline over the past month or so may be attributable to progression of Parkinsonsim.
- Continue Sinemet. Will hold Mirapex until metabolically stable.
- PT / OT evaluations for gait / balance needed prior to discharge.
-PT evaluation yesterday recommended skilled rehab facility with skilled therapy for 1 to 2 hours/day
� Patient will potentially need to be transferred to [facility] versus remaining at [place]
Paroxysmal Atrial Fibrillation:
-holding Coumadin with supratherapeutic INR
-Transition patient to Eliquis after normalization of INR.
- recheck INR tomorrow.
� Patient to be given Eliquis 5 mg twice daily once normalized
Peripheral Neuropathy: Neurontin restarted
Normocytic Anemia-Fe studies with low TIBC but normal Fe, trend Hb.
Lactic Acidosis- resolved with IVFs
HLD- cont pravastatin
Depression- lexapro on hold
DNR/supratherapeutic INR
Dispo eventual DC to [facility] not [facility]
Anticipated Discharge: 24 - 48 hours
Subjective/Interval History
-
Date of Service: May 21, 2024
Patient is an 83-year-old male with past medical history significant for Parkinson's, A-fib, CHF and wounds who initially presented for evaluation of cola colored urine and progressive weakness over the last month from [place]. Today patient reports
feeling much better. Patient reports no headaches, dizziness, nausea, vomiting, diarrhea, abdominal pain, numbness or tingling in extremities, new changes in baseline. Patient does state he has continued bilateral shoulder and leg pain.
Objective Data
-
Labs:
Laboratory Results
05/21/24
06:00
WBC Pending
Hgb Pending
Hct Pending
Plt Count Pending
PT Pending
INR Pending
Sodium Pending
Potassium Pending
Chloride Pending
Carbon Dioxide Pending
BUN Pending
Creatinine Pending
Glucose Pending
Calcium Pending
Vital Signs:
Vital Signs
Temp Pulse Resp BP Pulse Ox
97.5 F 74 18 115/71 95
05/21/24 03:00 05/21/24 03:00 05/21/24 03:00 05/21/24 03:00 05/21/24 03:00
I&O
05/20/24 05/21/24 05/22/24
06:59 06:59 06:59
Intake Total 480 / 480 360 / 360 650 / 650
Output Total 1125 / 1125 550 / 550 0 / 0
Balance -645 / -645 -190 / -190 650 / 650
Review of Systems
-
History Source: Patient
Constitutional: Reports No Symptoms
EENT: Reports No Symptoms Reported
Respiratory: Reports No Symptoms
Cardiac: Reports No Symptoms
Abdomen/GI: Reports No Symptoms
Breast: Reports No Symptoms
Genitourinary: Reports No Symptoms
Musculoskeletal: Reports Muscle Stiffness
Neuro: Reports No Symptoms
Physical Exam
-
General: Well Developed, Well Nourished, No Apparent Distress and Comfortable
HEENT: Normocephalic, Atraumatic and Moist Mucous Membranes
Respiratory: Crackles
Cardiac: Irregular Rhythm
GI: Soft, Nontender, Nondistended and Normal Bowel Sounds
Musculoskeletal: Edema, Right Lower Extrem and Edema, Left Lower Extrem
Skin: Warm
Neuro: AO x 3
Data Reviewed
-
Total Time Spent with Patient (in minutes): 30
Labs: Labs Reviewed by me and Discussed with Physician
Old Records: Reviewed
[2024-05-21 08:25] LABS: Hematocrit 25.8 % (39.0-52.0); Mean Corp Hgb Conc. 34.9 g/dL (33.0-37.0); Mean Corpuscular Hgb 30.1 pg (27.0-31.0); Mean Corpuscular Volume 86.3 fL (80.0-94.0); Mean Platelet Volume 9.1 fL (7.4-10.4); Platelet Count 162 10^3/uL (130-400); Red Blood Cell Count 2.99 10^6/uL (4.70-6.10); Red Cell Dist. Width 16.4 % (11.5-14.5); White Blood Cell Count 4.1 10^3/uL (4.8-10.8)
[2024-05-21 08:29] LABS: INR 3.59; PT 35.9 Sec (11.4-14.6)
[2024-05-21 09:26] LABS: Albumin 2.6 g/dl (3.5-5.0); Blood Urea Nitrogen 15 mg/dl (9-20); Calcium 8.4 mg/dl (8.4-10.2); Carbon Dioxide 37 mmol/L (22-30); Chloride 89 mmol/L (98-107); Estimated Creatinine Clearance 118 ml/min; Glucose 88 mg/dl (70-99); Magnesium 1.7 mg/dl (1.6-2.3); Phosphorus 2.7 mg/dl (2.5-4.5); Potassium 3.8 mmol/L (3.5-5.1); Sodium 128 mmol/L (135-145); eGFR > 60.00
[2024-05-21] MEDS: SINEMET CR 50/200 (EXTENDED RELEASE) 2 TABLET PO ×4 (09:33→21:59)
[2024-05-21] MEDS: FOLVITE 0.8 MG PO (09:34)
[2024-05-21] MEDS: NEURONTIN 100 MG PO ×3 (09:34→21:59)
[2024-05-21] MEDS: DESENEX/MITRAZOL/ZEASORB 1 APPLIC TOPICAL ×2 (09:36→19:45)
[2024-05-21 11:25] VITALS: BP 114/59
[2024-05-21] MEDS: SANTYL OINTMENT 1 APPLIC TOPICAL (11:29)
--- NOTE | 2024-05-21 13:42 | CM ---
CM notified that Iam's son would like to speak with me regarding discharge plans. I spoke with Rei Zaragoza who advised that Iam currently lives at [facility], however they would like to move him to another assisted living facility. Per
Rei, they are working with [facility] with [facility] to identify possible assisted living facilities. They are interested in [facility] and [facility]. In the interim they would be interested in a short stay at [facility] if he
needs rehabilitation prior to transferring to the assisted living.
CM will follow to assist with discharge planning needs as indicated by continued hospitalization.
Plan: CM to follow to coordinate direct placement in [place] vs. transfer to SNF followed by [place] placement.
PCP:
Pharm: [facility]
--- NOTE | 2024-05-21 14:00 | W.PN.NEPH.PH ---
Today's Communication / Plan
-
Observe on fluid restrict
Follow electrolyte
Diuretics held
Assessment/Plan
-
IMP:
Hyponatremia
Hypokalemia
metabolic alkalosis
Hematuria
BPH / AMBRIZ
Anemia
Chronic Indwelling Newman
Chronic HFpEF
Non-Ischemic Myocardial Injury
Lactic Acidosis
Paroxysmal Atrial Fibrillation
Parkinson's Disease
Normocytic Anemia
Peripheral Neuropathy
PLan;
A/w gen weakness, hematuria
Acute on chronic hyponatremia-U osmo high 469 and U na low 11
suspect intravascularly low specially with recent wt loss and soft Bps though has edema
Status post 3% saline and off NS , sodium locked at 128
continue to hold diuretics and SSRI, TSH normal
follow FR 40ounces/day and monitor daily wts
replaced k as it helps to improve hyponatremia too
replace mag
BP remains soft, cortisol normal , echocardiogram noted moderate to sever tricuspid regurg, LV preserved (pulmonary HTN)
abx per primary suspected UTI
follow h/h decreasing with IVF, high T sat 89%
Previously d/w pt and family in detail , aware that all edema is not amenable to diuresis, low urine sodium was consistent with volume depletion
No evidence of nephrotic syndrome to explain chronic edema
Low albumin levels likely complicating hemodynamics
encourage solute intake
-
-
Date of Service: May 21, 2024
CC / HPI / ROS
-
Chief Complaint:
Hyponatremia
History of Present Illness:
Serum sodium level up to 128 following 3% saline infusion a few days prior
Hemodynamically labile
Review of Systems:
Nonoliguric no chest pain or shortness of breath
Labs
-
Labs:
WBC 4.1 10^3/uL (4.8-10.8) L 05/21/24 07:52
RBC 2.99 10^6/uL (4.70-6.10) L 05/21/24 07:52
Hgb 9.0 g/dL (13.0-18.0) L 05/21/24 07:52
Hct 25.8 % (39.0-52.0) L 05/21/24 07:52
Plt Count 162 10^3/uL (130-400) 05/21/24 07:52
Sodium 128 mmol/L (135-145) L 05/21/24 07:52
Potassium 3.8 mmol/L (3.5-5.1) 05/21/24 07:52
Chloride 89 mmol/L (98-107) L 05/21/24 07:52
Carbon Dioxide 37 mmol/L (22-30) H 05/21/24 07:52
BUN 15 mg/dl (9-20) 05/21/24 07:52
Creatinine 0.5 mg/dL (0.7-1.3) L 05/21/24 07:52
eGFR > 60.00 05/21/24 07:52
Glucose 88 mg/dl (70-99) 05/21/24 07:52
Calcium 8.4 mg/dl (8.4-10.2) 05/21/24 07:52
Phosphorus 2.7 mg/dl (2.5-4.5) 05/21/24 07:52
Albumin 2.6 g/dl (3.5-5.0) L 05/21/24 07:52
Physical Exam
-
Vital Signs:
Vital Signs
Temp Pulse Resp BP Pulse Ox
97.8 F 87 18 114/59 98
05/21/24 11:25 05/21/24 11:25 05/21/24 11:25 05/21/24 11:25 05/21/24 11:25
Cardiovascular:: Regular rate and rhythm
Respiratory:: Bilateral: CTA
Lung Excursion:: Normal
Abdomen:: Nontender and Soft
Extremity Edema:: +1: Bilateral:
[2024-05-21 15:15] VITALS: BP 97/61
[2024-05-21] MEDS: STERILE WATER FOR INJECTION 10 ML IV (21:59)
[2024-05-21] MEDS: ROCEPHIN 1000 MG IV (22:00)
[2024-05-21 23:17] VITALS: BP 114/76
[2024-05-22 06:00] VITALS: BMI 31.2
[2024-05-22 07:30] VITALS: BP 83/55
--- NOTE | 2024-05-22 08:11 | W.PN.HOSP.TC ---
Addendum entered and electronically signed by Ronald Gill MD 05/22/24 21:49:
Attending Addendum-
I saw and evaluated the patient. I reviewed the resident�s note and agree with findings and plan as documented in the resident�s note. Sub: feels sob and has non productive cough. seen with daughter present. Full 12 point ROS reviewed and negative
except as documented Exam: Vitals reviewed in chart GEN-NAD heart irreg irreg lungs crackles at bases disffuse scattered exp wheeze abd soft LE +1 pitting edema shell in place with concentrated urine Plan:
# Hyponatremia
- appears hypervolemic
- worsening
- restart diuretics
- t/c samsca
- cont FRR
- repeat BMP in am
# Hypokalemia
- replete prn
- resolved
- repeat BMP in am
# URI-
- sputum cx
- start duonebs
- check cxr
- r/o flu/covid
# Leukopenia-
- resolved
- cont to trend
- repeat CBC in am
#Hypophosphatemia
- replete prn
- repeat in am
#Hypomagnesemia-
- resolved
- replete prn
- repeat in am
# Hypocalcemia
- replete prn
- correct due to hypoalb
- repeat in am
# Hematuria
-resolved
# BPH/AMBRIZ/Urinary retention
- cont chronic Shell
- Shell exchanged/replaced in the ED
# UTI
- klebsiella
- Continue ceftriaxone day 4
# Chronic HFpEF
- echo 05/20-Normal biventricular size and systolic function without regional wall motion
abnormality. Mild mitral stenosis. Moderate to severe tricuspid regurgitation with at least moderate pulmonary
hypertension. Compared to the previous echo on 12/20/2023 the RV systolic function seems
improved.
- restart lasix
- Follow I/Os, daily weights
- Cardiology input appreciated
# Non-Ischemic Myocardial Injury
- Patient has chronically abnormal troponin.
- EKG with non-specific T wave changes.
- Cardiology input appreciated
# Parkinson's Disease:
- Continue Sinemet dosing with no changes.
- Will hold mirapex for now and follow clinically.
- PT / OT evaluations for gait / balance.
- poor prognosis
# Normocytic Anemia-Fe studies with low TIBC but normal Fe, trend Hb.
# Lactic Acidosis- resolved with IVFs
# Paroxysmal Atrial Fibrillation- hold Coumadin with supratherapeutic INR- transition to Eliquis when INR < 2, repeat in am
# Peripheral Neuropathy- cont Neurontin
# HLD- cont pravastatin
# Depression- restart lexapro
FULL--> DNR patient AAO x 3 overall poor prognosis
Dispo eventual DC to SNF not [facility]
Time spent coordinating care, review of plan of care with resident, personally reviewed records in EMR, med rec, consults, notes, labs, radiology, d/w nursing and daughter� 56 mins
Original Note:
Today's Communication/Plan
-
.
Assessment / Plan
Assessment / Plan
Patient is an 83-year-old male with past medical history significant for Parkinson's, A-fib, CHF and wounds who initially presented for evaluation of cola colored urine and progressive weakness over the last month.
Hyponatremia
-Continue to hold Lasix and metolazone due to dry mucous membranes despite looking volume overloaded and lower extremities.
-Per conversations with Dr. Drew, recommendations made to hold Lasix for 1 more day and to restart oral outpatient dosing today
-Lasix given today. 40 mg PO
-weight loss of 20 lbs in the past few months, despite significant edema (albumin 2.9)
� Nephrology consulted. Appreciate input.
� Encourage solute intake per nephrology recommendations
�Sodium at 125
-Continue daily weights, fluid restriction for hyponatremia
-TSH and fasting cortisol normal
Cough
� Patient reporting cough
� Chest x-ray pending
-COVID and flu pending
� Sputum culture pending
� DuoNebs ordered for wheezing and crackles
Hypokalemia:
-Resolved
� Transition patient to 40 mg p.o. K
Hypophosphatemia
-Resolved
-Continue to monitor
Hypomagnesemia-
- resolved
- Give 2 g IV magnesium if mag value dips below normal
Hypocalcemia
-Resolved
-Continue to monitor
BPH/ AMBRIZ/Urinary Retention
- continue management of chronic shell
Hematuria
�Hemoglobin dropped from 9.4-8.1 due to hematuria, exacerbated by Coumadin.
- resolved
UTI
-UA shows gram-negative bacilli and no MRSA.
- Continue ceftriaxone for management.
Chronic HFpEF
- echo 05/20-Normal biventricular size and systolic function without regional wall motion abnormality. Mild mitral stenosis. Moderate to severe tricuspid regurgitation with at least moderate pulmonary hypertension. Compared to the previous echo on
12/20/2023 the RV systolic function seems improved.
- cardiology input appreciated
- Continue to follow I/Os, daily weights, fluid restriction and hold diuretics
Parkinson's Disease:
- Functional decline over the past month or so may be attributable to progression of Parkinsonsim.
- Continue Sinemet. Will hold Mirapex until metabolically stable.
- PT / OT evaluations for gait / balance appreciated
- PT evaluation recommended skilled rehab facility with skilled therapy for 1 to 2 hours/day
Paroxysmal Atrial Fibrillation:
-holding Coumadin with supratherapeutic INR
-Transition patient to Eliquis after normalization of INR<2
- recheck INR tomorrow
� Patient to be given Eliquis 5 mg twice daily once normalized
Peripheral Neuropathy: Neurontin restarted
Normocytic Anemia-Fe studies with low TIBC but normal Fe, trend Hb.
Lactic Acidosis- resolved with IVFs
HLD- cont pravastatin
Depression- lexapro on hold
DNR/supratherapeutic INR
Dispo eventual DC to SNF not [facility]
Anticipated Discharge: 24 - 48 hours
Subjective/Interval History
-
Date of Service: May 22, 2024
Patient is an 83-year-old male with past medical history significant for Parkinson's, A-fib, CHF and wounds who initially presented for evaluation of cola colored urine and progressive weakness over the last month. Today patient reported feeling
worse than yesterday. He stated he developed a cough, shortness of breath, rhinitis, eye secretions, blurry vision in right eye, myalgias. He reported bilateral leg discomfort and itching due to the compression socks given by wound care. He is
joined today by his daughter on the phone, [id number] and caregiver in person.
Objective Data
-
Labs:
Laboratory Results
05/22/24
07:50
WBC Pending
Hgb Pending
Hct Pending
Plt Count Pending
PT Pending
INR Pending
Sodium Pending
Potassium Pending
Chloride Pending
Carbon Dioxide Pending
BUN Pending
Creatinine Pending
Glucose Pending
Calcium Pending
Total Bilirubin Pending
AST Pending
ALT Pending
Alkaline Phosphatase Pending
Vital Signs:
Vital Signs
Temp Pulse Resp BP Pulse Ox
98 F 74 16 83/55 97
05/22/24 07:30 05/22/24 07:30 05/22/24 07:30 05/22/24 07:30 05/22/24 07:30
I&O
05/21/24 05/22/24 05/23/24
06:59 06:59 06:59
Intake Total 360 / 360 1310 / 1310
Output Total 550 / 550 1250 / 1250
Balance -190 / -190 60 / 60
Review of Systems
-
History Source: Patient and Family
Constitutional: Reports No Appetite, Fatigue and Weakness
EENT: Reports Tearing, Runny Nose and Decreased Vision
Respiratory: Reports Cough, Trouble Breathing and Wheezing
Cardiac: Reports No Symptoms
Abdomen/GI: Reports No Symptoms
Musculoskeletal: Reports Joint Pain, Muscle Pain and Muscle Weakness
Neuro: Reports Weakness
Physical Exam
-
General: Respiratory Distress (Mild) and Other (Elderly)
Respiratory: Wheezes and Crackles
Cardiac: Regular Rhythm and S1/S2
GI: Soft, Nontender, Nondistended and Normal Bowel Sounds
Skin: Warm and Dry
Neuro: Awake, Alert and Oriented
Psych: Calm
Data Reviewed
-
Total Time Spent with Patient (in minutes): 30
Labs: Labs Reviewed by me
Old Records: Reviewed
[2024-05-22 08:26] LABS: % Eosinophils 2.3 % (0-6); % Immature Granulocytes 0.4 % (0-0.5); % Lymphocytes 15.6 % (20.5-51.1); % Monocytes 9.7 % (1.7-9.3); Absolute Basophils 0.1 10^3/uL (0-0.2); Absolute Eosinophils 0.1 10^3/uL (0-0.7); Absolute Lymphocytes 0.8 10^3/uL (1.2-3.4); Absolute Monocytes 0.5 10^3/uL (0.1-0.6); Absolute Neutrophils 3.7 10^3/uL (1.4-6.5); Hematocrit 26.8 % (39.0-52.0); Hemoglobin 9.3 g/dL (13.0-18.0); Mean Corp Hgb Conc. 34.7 g/dL (33.0-37.0); Mean Corpuscular Hgb 29.9 pg (27.0-31.0); Mean Corpuscular Volume 86.2 fL (80.0-94.0); Mean Platelet Volume 9.1 fL (7.4-10.4); Nucleated Red Blood Cells % 0 % (-); Platelet Count 151 10^3/uL (130-400); Red Blood Cell Count 3.11 10^6/uL (4.70-6.10); Red Cell Dist. Width 16.6 % (11.5-14.5); White Blood Cell Count 5.3 10^3/uL (4.8-10.8)
[2024-05-22 08:51] LABS: ALT (SGPT) < 10 U/L (0-50); AST (SGOT) 30 U/L (17-59); Albumin 2.6 g/dl (3.5-5.0); Alkaline Phosphatase 246 U/L (38-126); Blood Urea Nitrogen 13 mg/dl (9-20); Calcium 8.5 mg/dl (8.4-10.2); Carbon Dioxide 32 mmol/L (22-30); Chloride 90 mmol/L (98-107); Estimated Creatinine Clearance 117 ml/min; Glucose 107 mg/dl (70-99); Magnesium 1.6 mg/dl (1.6-2.3); Potassium 3.7 mmol/L (3.5-5.1); Sodium 126 mmol/L (135-145); Total Protein 5.3 g/dl (6.3-8.2); eGFR > 60.00
[2024-05-22 09:10] LABS: INR 3.05
[2024-05-22] MEDS: LASIX 40 MG PO (09:16)
[2024-05-22] MEDS: FOLVITE 0.8 MG PO (09:16)
[2024-05-22] MEDS: SINEMET CR 50/200 (EXTENDED RELEASE) 2 TABLET PO ×4 (09:16→22:09)
[2024-05-22] MEDS: NEURONTIN 100 MG PO ×3 (09:16→22:09)
[2024-05-22] MEDS: SANTYL OINTMENT 1 APPLIC TOPICAL (09:17)
[2024-05-22] MEDS: DESENEX/MITRAZOL/ZEASORB 1 APPLIC TOPICAL ×2 (09:17→19:10)
[2024-05-22 10:08] LABS: Phosphorus 2.9 mg/dl (2.5-4.5)
[2024-05-22 14:34] VITALS: BP 102/66; BP 106/73; BP 106/74; BP 88/57; PULSE 118; PULSE 130
[2024-05-22 14:37] VITALS: BP 102/66; BP 106/73; BP 106/74; BP 88/57; PULSE 130
[2024-05-22 15:20] VITALS: BP 116/68
--- NOTE | 2024-05-22 16:10 | W.PN.NEPH.PH ---
Today's Communication / Plan
-
follow labs, if sodium low likely samsca
Assessment/Plan
-
IMP:
Hyponatremia
Hypokalemia
metabolic alkalosis
Hematuria
BPH / AMBRIZ
Anemia
Chronic Indwelling Newman
Chronic HFpEF
Non-Ischemic Myocardial Injury
Lactic Acidosis
Paroxysmal Atrial Fibrillation
Parkinson's Disease
Normocytic Anemia
Peripheral Neuropathy
PLan;
A/w gen weakness, hematuria
Acute on chronic hyponatremia-U osmo high 469 and U na low 11
suspect intravascularly low specially with recent wt loss and soft Bps though has edema
sodium decreasing today at 126, recheck now
lasix resumed today, follow labs, prn sasmca
continue to hold SSRI, TSH normal
follow FR 40ounces/day and monitor daily wts
BP remains soft, cortisol normal ,mod-severe TR, pulm HTN noted on echo
abx per primary suspected UTI
follow h/h stable hb 9.3, high T sat 89%
Previously d/w pt and family in detail , aware that all edema is not amenable to diuresis
No evidence of nephrotic syndrome to explain chronic edema
Low albumin levels likely complicating hemodynamics
encourage solute intake
-
-
Date of Service: May 22, 2024
CC / HPI / ROS
-
Chief Complaint:
Hyponatremia
History of Present Illness:
Serum sodium level up to 128 but now at 126
wt decreasing
Hemodynamically labile
Review of Systems:
Nonoliguric no chest pain or shortness of breath
feels well
Labs
-
Labs:
WBC 5.3 10^3/uL (4.8-10.8) 05/22/24 07:50
RBC 3.11 10^6/uL (4.70-6.10) L 05/22/24 07:50
Hgb 9.3 g/dL (13.0-18.0) L 05/22/24 07:50
Hct 26.8 % (39.0-52.0) L 05/22/24 07:50
Plt Count 151 10^3/uL (130-400) 05/22/24 07:50
Sodium 126 mmol/L (135-145) L 05/22/24 07:50
Potassium 3.7 mmol/L (3.5-5.1) 05/22/24 07:50
Chloride 90 mmol/L (98-107) L 05/22/24 07:50
Carbon Dioxide 32 mmol/L (22-30) H 05/22/24 07:50
BUN 13 mg/dl (9-20) 05/22/24 07:50
Creatinine 0.5 mg/dL (0.7-1.3) L 05/22/24 07:50
eGFR > 60.00 05/22/24 07:50
Glucose 107 mg/dl (70-99) H 05/22/24 07:50
Calcium 8.5 mg/dl (8.4-10.2) 05/22/24 07:50
Phosphorus 2.9 mg/dl (2.5-4.5) 05/22/24 07:50
Albumin 2.6 g/dl (3.5-5.0) L 05/22/24 07:50
Physical Exam
-
Vital Signs:
Vital Signs
Temp Pulse Resp BP Pulse Ox
98.2 F 93 16 116/68 96
05/22/24 15:20 05/22/24 15:20 05/22/24 15:20 05/22/24 15:20 05/22/24 15:20
Cardiovascular:: Regular rate and rhythm
Respiratory:: Bilateral: CTA (decreased)
Lung Excursion:: Normal
Abdomen:: Nontender and Soft
Extremity Edema:: +1: Bilateral:
Newman Catheter: Yes
[2024-05-22 17:11] LABS: Sodium 125 mmol/L (135-145)
[2024-05-22] MEDS: SAMSCA 7.5 MG PO (19:10)
[2024-05-22] MEDS: DUONEB 3 ML INH (20:01)
[2024-05-22 21:31] LABS: COVID-19 Antigen Negative (Negative)
[2024-05-22] MEDS: ROCEPHIN 1000 MG IV (22:09)
[2024-05-22] MEDS: STERILE WATER FOR INJECTION 10 ML IV (22:09)
[2024-05-22 23:00] VITALS: BP 94/64
[2024-05-23 04:38] VITALS: BMI 30.8
[2024-05-23 07:10] VITALS: BP 97/70
[2024-05-23 07:10] LABS: % Basophils 0.9 % (0-2); % Eosinophils 2.9 % (0-6); % Immature Granulocytes 0.5 % (0-0.5); % Lymphocytes 15.3 % (20.5-51.1); % Monocytes 12.9 % (1.7-9.3); % Neutrophils 67.5 % (42.2-75.2); Absolute Eosinophils 0.1 10^3/uL (0-0.7); Absolute Lymphocytes 0.7 10^3/uL (1.2-3.4); Absolute Monocytes 0.6 10^3/uL (0.1-0.6); Hematocrit 27.1 % (39.0-52.0); Hemoglobin 9.5 g/dL (13.0-18.0); Mean Corp Hgb Conc. 35.1 g/dL (33.0-37.0); Mean Corpuscular Hgb 30.2 pg (27.0-31.0); Mean Platelet Volume 9.2 fL (7.4-10.4); Nucleated Red Blood Cells % 0 % (-); Platelet Count 147 10^3/uL (130-400); Red Blood Cell Count 3.15 10^6/uL (4.70-6.10); Red Cell Dist. Width 16.4 % (11.5-14.5); White Blood Cell Count 4.4 10^3/uL (4.8-10.8)
[2024-05-23 07:22] LABS: INR 2.75; PT 29.4 Sec (11.4-14.6)
[2024-05-23 07:53] LABS: Blood Urea Nitrogen 14 mg/dl (9-20); Calcium 8.9 mg/dl (8.4-10.2); Carbon Dioxide 33 mmol/L (22-30); Chloride 94 mmol/L (98-107); Estimated Creatinine Clearance 116 ml/min; Glucose 118 mg/dl (70-99); Potassium 3.9 mmol/L (3.5-5.1); Sodium 130 mmol/L (135-145); eGFR > 60.00
--- NOTE | 2024-05-23 09:37 | W.PN.HOSP.TC ---
Addendum entered and electronically signed by Ronald Gill MD 05/23/24 22:07:
Attending Addendum-
I saw and evaluated the patient. I reviewed the resident�s note and agree with findings and plan as documented in the resident�s note. Sub: patient sleeping deeply, easily arousable, patient feels fatigued denies sob. seen with daughter present.
Full 12 point ROS reviewed and negative except as documented Exam: Vitals reviewed in chart GEN-NAD heart irreg irreg lungs crackles at bases abd soft LE +1 pitting edema shell in place with concentrated urine Plan:
# CIMS-
- r/o UTI
- check head CT
- progression of dementia?
# Hyponatremia
- appears hypervolemic
- improved
- restarted diuretics
- s/p samsca-05/22
- cont FRR
- repeat BMP in am
# Hypokalemia
- replete prn
- resolved
- repeat BMP in am
# URI-
- sputum cx
- cont duonebs
- cxr- pulm edema
- flu/covid - neg
# Leukopenia-
- resolved
- cont to trend
- repeat CBC in am
#Hypophosphatemia
- replete prn
- repeat in am
#Hypomagnesemia-
- resolved
- replete prn
- repeat in am
# Hypocalcemia
- replete prn
- correct due to hypoalb
- repeat in am
# Hematuria
-resolved
# BPH/AMBRIZ/Urinary retention
- cont chronic Shell
- Shell exchanged/replaced in the ED
# UTI
- klebsiella
- completed course abx
# Chronic HFpEF
- echo 05/20-Normal biventricular size and systolic function without regional wall motion
abnormality. Mild mitral stenosis. Moderate to severe tricuspid regurgitation with at least moderate pulmonary
hypertension. Compared to the previous echo on 12/20/2023 the RV systolic function seems
improved.
- cont lasix
- Follow I/Os, daily weights
- Cardiology input appreciated
# Non-Ischemic Myocardial Injury
- Patient has chronically abnormal troponin.
- EKG with non-specific T wave changes.
- Cardiology input appreciated
# Parkinson's Disease:
- Continue Sinemet dosing with no changes.
- RESTART mirapex at lower dose 1mg po TID
- PT / OT evaluations for gait / balance.
- poor prognosis
# Normocytic Anemia-Fe studies with low TIBC but normal Fe, trend Hb.
# Lactic Acidosis- resolved with IVFs
# Paroxysmal Atrial Fibrillation- hold Coumadin with supratherapeutic INR- transition to Eliquis when INR < 2, repeat in am
# Peripheral Neuropathy- cont Neurontin
# HLD- cont pravastatin
# Depression- restart lexapro
FULL--> DNR patient AAO x 3 overall poor prognosis
Dispo eventual DC to SNF not [facility]
Time spent coordinating care, review of plan of care with resident, personally reviewed records in EMR, med rec, consults, notes, labs, radiology, d/w nursing and daughter� 58 mins
Original Note:
Today's Communication/Plan
-
.
Assessment / Plan
Assessment / Plan
Patient is an 83-year-old male with past medical history significant for Parkinson's, A-fib, CHF and wounds who initially presented for evaluation of cola colored urine and progressive weakness over the last month.
Hyponatremia
-Continue to hold Lasix and metolazone due to dry mucous membranes despite looking volume overloaded and lower extremities.
-Per conversations with Dr. Drew, recommendations made to hold Lasix for 1 more day and to restart oral outpatient dosing today
-Lasix given today. 40 mg PO
-weight loss of 20 lbs in the past few months, despite significant edema (albumin 2.9)
� Nephrology consulted. Appreciate input.
� Encourage solute intake per nephrology recommendations
- SAMSCA given 05/22 per nephrology reccomendations
�Sodium at 130
-Continue daily weights, fluid restriction for hyponatremia
-TSH and fasting cortisol normal
Cough
� Patient reporting cough
� Chest x-ray 05/22: Interval development of small to moderate bilateral pleural effusions. Bilateral increased interstitial markings, suggestive of interstitial edema pattern. Bilateral interstitial pneumonia is a differential consideration, felt to
be less likely.
-COVID and flu negative
� Sputum culture negative
� DuoNebs ordered for wheezing and crackles 05/22
Hypokalemia:
-Resolved
� Transition patient to 40 mg p.o. K
Hypophosphatemia
-Resolved
-Continue to monitor
Hypomagnesemia-
- resolved
- Give 2 g IV magnesium if mag value dips below normal
Hypocalcemia
-Resolved
-Continue to monitor
BPH/ AMBRIZ/Urinary Retention
- continue management of chronic shell
Hematuria
�resolved
UTI
-UA shows gram-negative bacilli and no MRSA.
- Continue ceftriaxone for management.
Chronic HFpEF
- echo 05/20-Normal biventricular size and systolic function without regional wall motion abnormality. Mild mitral stenosis. Moderate to severe tricuspid regurgitation with at least moderate pulmonary hypertension. Compared to the previous echo on
12/20/2023 the RV systolic function seems improved.
- cardiology input appreciated
- Continue to follow I/Os, daily weights, fluid restriction and hold diuretics
Parkinson's Disease:
- Functional decline over the past month or so may be attributable to progression of Parkinsonsim.
- Continue Sinemet. Will hold Mirapex until metabolically stable.
- PT / OT evaluations for gait / balance appreciated
- PT evaluation recommended skilled rehab facility with skilled therapy for 1 to 2 hours/day
Paroxysmal Atrial Fibrillation:
-holding Coumadin with supratherapeutic INR
-Transition patient to Eliquis after normalization of INR<2
- recheck INR tomorrow
� Patient to be given Eliquis 5 mg twice daily once normalized
Peripheral Neuropathy: Neurontin restarted
Normocytic Anemia-Fe studies with low TIBC but normal Fe, trend Hb.
Lactic Acidosis- resolved with IVFs
HLD- cont pravastatin
Depression- lexapro on hold
DNR/supratherapeutic INR
Dispo eventual DC to SNF not [facility]
Anticipated Discharge: 24 - 48 hours
Subjective/Interval History
-
Date of Service: May 23, 2024
Patient is an 83-year-old male with past medical history significant for Parkinson's, A-fib, CHF and wounds who initially presented for evaluation of cola colored urine and progressive weakness over the last month.
Objective Data
-
Labs:
Laboratory Results
05/23/24
07:01
WBC 4.4 L
Hgb 9.5 L
Hct 27.1 L
Plt Count 147
PT 29.4 H
INR 2.75
Sodium 130 L
Potassium 3.9
Chloride 94 L
Carbon Dioxide 33 H
BUN 14
Creatinine 0.5 L
Glucose 118 H
Calcium 8.9
Vital Signs:
Vital Signs
Temp Pulse Resp BP Pulse Ox
97.7 F 89 20 97/70 96
05/23/24 07:10 05/23/24 07:10 05/23/24 07:10 05/23/24 07:10 05/23/24 07:10
I&O
05/22/24 05/23/24 05/24/24
06:59 06:59 06:59
Intake Total 1310 / 1310
Output Total 1250 / 1250 2425 / 2425
Balance 60 / 60 -2424 /
Physical Exam
-
General: Comfortable and Other (elderly)
HEENT: Normocephalic and Atraumatic
GI: Soft, Nontender and Nondistended
Musculoskeletal: Edema, Right Lower Extrem and Edema, Left Lower Extrem
Skin: Warm and Dry
Psych: Calm
Data Reviewed
-
Total Time Spent with Patient (in minutes): 15
Diagnostic Radiology: Report Reviewed by me
Labs: Labs Reviewed by me and Discussed with Physician
Old Records: Reviewed
[2024-05-23] MEDS: SINEMET CR 50/200 (EXTENDED RELEASE) 2 TABLET PO ×3 (11:39→21:42)
[2024-05-23] MEDS: LEXAPRO 10 MG PO (11:39)
[2024-05-23] MEDS: DESENEX/MITRAZOL/ZEASORB 1 APPLIC TOPICAL ×2 (11:40→20:08)
[2024-05-23] MEDS: FOLVITE 0.8 MG PO (11:40)
[2024-05-23] MEDS: NEURONTIN 100 MG PO ×2 (11:40→21:42)
[2024-05-23 11:44] VITALS: BP 108/68
[2024-05-23] MEDS: LASIX 40 MG PO (11:44)
[2024-05-23] MEDS: SANTYL OINTMENT 1 APPLIC TOPICAL (11:51)
[2024-05-23 15:15] VITALS: BP 110/61
--- NOTE | 2024-05-23 15:51 | W.PN.NEPH.PH ---
Today's Communication / Plan
-
- c/w lasix
Assessment/Plan
-
IMP:
Hyponatremia
Hypokalemia
metabolic alkalosis
Hematuria
BPH / AMBRIZ
Anemia
Chronic Indwelling Newman
Chronic HFpEF
Non-Ischemic Myocardial Injury
Lactic Acidosis
Paroxysmal Atrial Fibrillation
Parkinson's Disease
Normocytic Anemia
Peripheral Neuropathy
PLan;
A/w gen weakness, hematuria
Acute on chronic hyponatremia-U osmo high 469 and U na low 11
suspect intravascularly low specially with recent wt loss and soft Bps though has edema
sodium improved to 130 today on lasix, c/w lasix for now. no samsca today
continue to hold SSRI, TSH normal
follow FR 40ounces/day and monitor daily wts
BP remains soft, cortisol normal ,mod-severe TR, pulm HTN noted on echo
abx per primary suspected UTI
follow h/h stable hb 9.3, high T sat 89%
d/w family at bedside that although his numbers look better, patient appears worse clinically to them
No evidence of nephrotic syndrome to explain chronic edema
Low albumin levels likely complicating hemodynamics
encourage solute intake
-
-
Date of Service: May 23, 2024
CC / HPI / ROS
-
Chief Complaint:
Hyponatremia
History of Present Illness:
Serum sodium level up to 130
wt decreasing
Hemodynamically labile
Review of Systems:
Nonoliguric no chest pain or shortness of breath
sleeping
Labs
-
Labs:
WBC 4.4 10^3/uL (4.8-10.8) L 05/23/24 07:01
RBC 3.15 10^6/uL (4.70-6.10) L 05/23/24 07:01
Hgb 9.5 g/dL (13.0-18.0) L 05/23/24 07:01
Hct 27.1 % (39.0-52.0) L 05/23/24 07:01
Plt Count 147 10^3/uL (130-400) 05/23/24 07:01
Sodium 130 mmol/L (135-145) L 05/23/24 07:01
Potassium 3.9 mmol/L (3.5-5.1) 05/23/24 07:01
Chloride 94 mmol/L (98-107) L 05/23/24 07:01
Carbon Dioxide 33 mmol/L (22-30) H 05/23/24 07:01
BUN 14 mg/dl (9-20) 05/23/24 07:01
Creatinine 0.5 mg/dL (0.7-1.3) L 05/23/24 07:01
eGFR > 60.00 05/23/24 07:01
Glucose 118 mg/dl (70-99) H 05/23/24 07:01
Calcium 8.9 mg/dl (8.4-10.2) 05/23/24 07:01
Phosphorus 2.9 mg/dl (2.5-4.5) 05/22/24 07:50
Albumin 2.6 g/dl (3.5-5.0) L 05/22/24 07:50
Physical Exam
-
Vital Signs:
Vital Signs
Temp Pulse Resp BP Pulse Ox
98.5 F 95 20 110/61 95
05/23/24 15:15 05/23/24 15:15 05/23/24 15:15 05/23/24 15:15 05/23/24 15:15
Cardiovascular:: Regular rate and rhythm
Respiratory:: Bilateral: Coarse
Lung Excursion:: Normal
Abdomen:: Nontender and Soft
Bowel Sounds:: Normal
Extremity Edema:: +2: Bilateral:
Newman Catheter: Yes
[2024-05-23] MEDS: NEURONTIN PO (16:09)
[2024-05-23] MEDS: SINEMET CR 50/200 (EXTENDED RELEASE) PO (16:09)
--- NOTE | 2024-05-23 16:23 | CM ---
CM met with Iam's [id number] at bedside to discuss discharge plans. Family is pursuing admission to [facility] in [place] with plan for SNF at [facility] which is right next door to [facility] and has been recommended by [facility].
I spoke with Adelso at [facility] who advised that the family has put down a deposit for his room which will on May 28. This means the family would be responsible as of May 29 for the cost of the room until he moves in, at which
time they would begin paying for the cost of care as well.
I did mention the [employer] Star ratings and made them aware of the 1 star rating that is current with [facility], but advised that they are now owned by another company, so to visit the facility to verify that they are happy with the
accomodations when they tour, rather than counting the facility out due to the rating.
CM will continue to follow to assist with transition to SNF when medically ready.
Plan: Transfer to [facility] for SNF followed by admission to [facility].
PCP:
Pharm: [facility]
[2024-05-23 18:35] LABS: Urine Albumin Negative (Neg - Trace); Urine Bilirubin Negative (Negative); Urine Character Clear (Clear); Urine Color Yellow; Urine Glucose Negative (Negative); Urine Ketone Negative (Negative); Urine Leukocyte 1+ (Negative); Urine Nitrite Negative (Negative); Urine Occult Blood Negative (Negative); Urine Urobilinogen 1+ (Neg - 1+)
[2024-05-23 18:59] LABS: Urine Bacteria Few (Negative); Urine Mucus Few; Urine Red Blood Cell 0-2 /HPF (0-2); Urine White Cell 16-20 /HPF (0-5)
[2024-05-23] MEDS: STERILE WATER FOR INJECTION IV (21:47)
[2024-05-23 23:00] VITALS: BP 95/64
[2024-05-24] MEDS: TYLENOL 650 MG PO (04:52)
[2024-05-24 05:05] LABS: % Basophils 0.6 % (0-2); % Eosinophils 1.8 % (0-6); % Immature Granulocytes 0.4 % (0-0.5); % Lymphocytes 15.8 % (20.5-51.1); % Monocytes 13.6 % (1.7-9.3); % Neutrophils 67.8 % (42.2-75.2); Absolute Eosinophils 0.1 10^3/uL (0-0.7); Absolute Lymphocytes 0.8 10^3/uL (1.2-3.4); Absolute Monocytes 0.7 10^3/uL (0.1-0.6); Absolute Neutrophils 3.4 10^3/uL (1.4-6.5); Hematocrit 26.4 % (39.0-52.0); Mean Corp Hgb Conc. 34.1 g/dL (33.0-37.0); Mean Corpuscular Hgb 29.6 pg (27.0-31.0); Mean Corpuscular Volume 86.8 fL (80.0-94.0); Mean Platelet Volume 9.3 fL (7.4-10.4); Nucleated Red Blood Cells % 0 % (-); Platelet Count 133 10^3/uL (130-400); Red Blood Cell Count 3.04 10^6/uL (4.70-6.10); Red Cell Dist. Width 16.9 % (11.5-14.5)
[2024-05-24 05:15] LABS: INR 2.62; PT 28.4 Sec (11.4-14.6)
[2024-05-24 05:28] LABS: Blood Urea Nitrogen 15 mg/dl (9-20); Calcium 8.5 mg/dl (8.4-10.2); Carbon Dioxide 38 mmol/L (22-30); Chloride 94 mmol/L (98-107); Estimated Creatinine Clearance 116 ml/min; Glucose 130 mg/dl (70-99); Potassium 3.6 mmol/L (3.5-5.1); Sodium 132 mmol/L (135-145); eGFR > 60.00
[2024-05-24 07:05] VITALS: BP 102/54
--- NOTE | 2024-05-24 07:44 | W.PN.HOSP.TC ---
Addendum entered and electronically signed by Ronald Gill MD 05/24/24 22:50:
Attending Addendum-
I saw and evaluated the patient. I reviewed the resident�s note and agree with findings and plan as documented in the resident�s note. Sub: seen with caregiver, patient back to baseline but VERY deconditioned. Full 12 point ROS reviewed and
negative except as documented Exam: Vitals reviewed in chart GEN-NAD heart irreg irreg lungs crackles at bases abd soft LE +1 pitting edema shell in place with concentrated urine Plan:
# CIMS-
- resolved
- r/o UTI
- check head CT
- progression of dementia?
- poor prognosis
# Hyponatremia
- appears hypervolemic
- improved
- restarted diuretics
- s/p samsca-05/22
- cont FRR
- repeat BMP as OP
# Hypokalemia
- resolved
# Leukopenia-
- resolved
#Hypophosphatemia
- replete prn
#Hypomagnesemia-
- resolved
# Hypocalcemia
- replete prn
# Hematuria
-resolved
# BPH/AMBRIZ/Urinary retention
- cont chronic Shell
- Shell exchanged/replaced in the ED
# UTI
- klebsiella
- completed course abx
# Chronic HFpEF
- echo 05/20-Normal biventricular size and systolic function without regional wall motion
abnormality. Mild mitral stenosis. Moderate to severe tricuspid regurgitation with at least moderate pulmonary
hypertension. Compared to the previous echo on 12/20/2023 the RV systolic function seems
improved.
- cont lasix
- Follow I/Os, daily weights
- Cardiology input appreciated
# Non-Ischemic Myocardial Injury
- Patient has chronically abnormal troponin.
- EKG with non-specific T wave changes.
- Cardiology input appreciated
# Parkinson's Disease:
- Continue Sinemet dosing with no changes.
- RESTARTed mirapex at lower dose 1mg po TID
- PT / OT evaluations for gait / balance.
- poor prognosis
# Normocytic Anemia-Fe studies with low TIBC but normal Fe, trend Hb.
# Lactic Acidosis- resolved with IVFs
# Paroxysmal Atrial Fibrillation- hold Coumadin with supratherapeutic INR- transition to Eliquis when INR < 2, repeat in am
# Peripheral Neuropathy- cont Neurontin
# HLD- cont pravastatin
# Depression- restart lexapro
FULL--> DNR patient AAO x 3 overall poor prognosis
Dispo eventual DC to SNF [facility] then [facility] afterwards
Time spent coordinating care, DC planning, review of DC plan of care with resident, transition of care, review of records, med rec/scripts sent electronically, consults, notes, d/w consultants, nursing, caregiver, and CM�38 mins
Original Note:
Today's Communication/Plan
-
.
Assessment / Plan
Assessment / Plan
Patient is an 83-year-old male with past medical history significant for Parkinson's, A-fib, CHF and wounds who initially presented for evaluation of cola colored urine and progressive weakness over the last month.
Hyponatremia
-Continue to hold Lasix and metolazone due to dry mucous membranes despite looking volume overloaded and lower extremities.
-Lasix given today. 40 mg PO
� Nephrology consulted. Appreciate input.
- SAMSCA given 05/22 per nephrology recommendations
�Sodium at 132
-Continue daily weights, fluid restriction for hyponatremia
Cough
� Patient reporting cough
� Chest x-ray 05/22: Interval development of small to moderate bilateral pleural effusions. Bilateral increased interstitial markings, suggestive of interstitial edema pattern. Bilateral interstitial pneumonia is a differential consideration, felt to
be less likely.
-COVID and flu negative
� Sputum culture negative
� DuoNebs ordered for wheezing and crackles 05/22
Hypokalemia:
-Resolved
� Transition patient to 40 mg p.o. K
Hypophosphatemia
-Resolved
-Continue to monitor
Hypomagnesemia-
- resolved
- Give 2 g IV magnesium if mag value dips below normal
Hypocalcemia
-Resolved
-Continue to monitor
BPH/ AMBRIZ/Urinary Retention
- continue management of chronic shell
Hematuria
�resolved
UTI
-UA shows gram-negative bacilli and no MRSA.
- Continue ceftriaxone for management.
- DC abx?
Chronic HFpEF
- echo 05/20-Normal biventricular size and systolic function without regional wall motion abnormality. Mild mitral stenosis. Moderate to severe tricuspid regurgitation with at least moderate pulmonary hypertension. Compared to the previous echo on
12/20/2023 the RV systolic function seems improved.
- cardiology input appreciated
- Continue to follow I/Os, daily weights, fluid restriction
Parkinson's Disease:
- Functional decline over the past month or so may be attributable to progression of Parkinsonsim.
- Continue Sinemet. resume Mirapex at DC at lower dose
- PT / OT evaluations for gait / balance appreciated
- PT evaluation recommended skilled rehab facility with skilled therapy for 1 to 2 hours/day
Paroxysmal Atrial Fibrillation:
-holding Coumadin with supratherapeutic INR
-Transition patient to Eliquis after normalization of INR<2
- continue monitoring INR OP
� Patient to be given Eliquis 5 mg twice daily once normalized
Peripheral Neuropathy: Neurontin restarted
Normocytic Anemia-Fe studies with low TIBC but normal Fe, trend Hb.
Lactic Acidosis- resolved with IVFs
HLD- cont pravastatin
Depression- lexapro on hold
DNR/supratherapeutic INR
Dispo eventual DC to SNF [facility]
Anticipated Discharge: Today
Subjective/Interval History
-
Date of Service: May 24, 2024
Patient states he is feeling great today. He reports some fatigue but feeling significantly better than the last few days. He states he has his appetite back. Complains of no ongoing respiratory distress, difficulty with sleep, GI or
discomfort.
Objective Data
-
Labs:
Laboratory Results
05/24/24
04:37
WBC 5.0
Hgb 9.0 L
Hct 26.4 L
Plt Count 133
PT 28.4 H
INR 2.62
Sodium 132 L
Potassium 3.6
Chloride 94 L
Carbon Dioxide 38 H
BUN 15
Creatinine 0.6 L
Glucose 130 H
Calcium 8.5
Vital Signs:
Vital Signs
Temp Pulse Resp BP Pulse Ox
98.3 F 88 16 95/64 95
05/23/24 23:00 05/23/24 23:00 05/23/24 23:00 05/23/24 23:00 05/23/24 23:45
I&O
05/23/24 05/24/24 05/25/24
06:59 06:59 06:59
Intake Total 420 / 420
Output Total 2425 / 2425 1300 / 1300
Balance -2425 / -2425 -880 / -880
Review of Systems
-
History Source: Patient
Constitutional: Reports Fatigue
EENT: Reports No Symptoms Reported
Respiratory: Reports No Symptoms
Cardiac: Reports No Symptoms
Abdomen/GI: Reports No Symptoms
Musculoskeletal: Reports Joint Pain, Muscle Pain and Edema
Skin: Reports Other (Wound)
Neuro: Reports No Symptoms
Physical Exam
-
General: No Apparent Distress, Comfortable and Other (Elderly)
HEENT: Normocephalic and Atraumatic
Respiratory: Crackles (Mild) and Non Labored Respirations
Cardiac: Irregular Rhythm
GI: Soft, Nontender and Nondistended
Musculoskeletal: Edema, Right Lower Extrem and Edema, Left Lower Extrem
Skin: Warm, Dry and Other (Wounds on bilateral leg)
Neuro: AO x 3
Psych: Calm
Data Reviewed
-
Total Time Spent with Patient (in minutes): 30
CT Scan: Report Reviewed by me
Labs: Labs Reviewed by me and Discussed with Physician
Old Records: Reviewed
[2024-05-24] MEDS: LEXAPRO 10 MG PO (09:36)
[2024-05-24] MEDS: MIRAPEX, GENERIC 1 MG PO (09:36)
[2024-05-24] MEDS: LASIX 40 MG PO (09:36)
[2024-05-24] MEDS: NEURONTIN 100 MG PO (09:37)
[2024-05-24] MEDS: SINEMET CR 50/200 (EXTENDED RELEASE) 2 TABLET PO ×2 (09:37→12:02)
[2024-05-24] MEDS: DESENEX/MITRAZOL/ZEASORB 1 APPLIC TOPICAL (09:37)
[2024-05-24] MEDS: FOLVITE 0.8 MG PO (09:37)
--- NOTE | 2024-05-24 10:30 | W.DCSUMMARY ---
Addendum entered and electronically signed by Ronald Gill MD 05/24/24 23:07:
Read, reviewed, and partially agree. See same day progress note for additional details. EDIT- contacted [facility] re DC of Coumadin with repeat INR on 05/27. Patients nurse at [facility] expressed understanding.
John Gill MD
Original Note:
Documented by User: Archie De Los Santos DO, Resident 05/24/24 17:29
Discharge Summary
Discharge Data
Date of Admission: 05/18/24
Date of Discharge: 05/24/24
Total time spent discharging patient (in min): 45
-
Pending Results: No
Hospital Course
Patient is an 83-year-old male with past medical history significant for Parkinson's, A-fib, CHF and wounds who initially presented for evaluation of cola colored urine and progressive weakness over the last month. Patient's family at the time of
admission reported multiple falls in the last month and lower extremity edema baseline patient had poor appetite, marked lower extremity swelling with blister formation and weeping wounds, significant pain in all extremities, sluggish speech,
chronic Newman for BPH, and metabolic derangements. Problem list included hyponatremia, hypokalemia, hematuria, chronic HFpEF, nonischemic myocardial injury, PAF, Parkinson's, normocytic anemia, lactic acidosis , peripheral neuropathy,
hyperlipidemia and depression. DVT prophylaxis was Coumadin adjusted based on INR. During admission, patient developed cough, rhinorrhea and lacrimal discharge. Chest x-ray was ordered and showed mild to moderate interstitial fibrosis, interval
development of small to moderate bilateral pleural effusions, interstitial edema pattern of interstitial markings, bilateral interstitial pneumonia less likely. On 05/23 patient was thought to be more stiff so CT head was ordered. CT head showed no
evidence of acute intracranial abnormality.
1) hyponatremia: Sodium at time of discharge was 132. Patient discharged on home Lasix dose of 40 mg p.o. daily. Samsca was given 7�31 per nephrology recommendations. Patient to continue daily weights, fluid restriction in SNF.
2) hypokalemia: Resolved.
3) hematuria: Resolved. Continue to monitor urine for concentration versus hematuria.
4) chronic HFpEF: echo 05/20-Normal biventricular size and systolic function without regional wall motion abnormality. Mild mitral stenosis. Moderate to severe tricuspid regurgitation with at least moderate pulmonary hypertension. Compared to the
previous echo on 12/20/2023 the RV systolic function seems improved. Cardiology on board. Continue to follow ins and outs, daily weights, fluid restriction. Diuretics resumed.
5) nonischemic myocardial injury: Chronically elevated troponin. EKG with nonspecific T wave changes. Cardiology on board.
6) paroxysmal atrial fibrillation: Patient currently on Coumadin. Continue to monitor INR. If patient has INR less than 2, transition to Eliquis.
7) Parkinson's disease: Continue Sinemet dosing without changes. Restart Mirapex at lower dose of 1 mg p.o. 3 times daily. Continue PT and OT therapy at SNF.
8) normocytic anemia: Trend hemoglobin.
9) lactic acidosis: Resolved with IV fluids
10) peripheral neuropathy: Continue Neurontin
11) hyperlipidemia: Continue pravastatin
12) depression: Restart Lexapro
Discharge Plan
-
Patient Disposition: Alf/SNF
Discharge Diagnosis/Procedures: hematuria, hyponatremia, URI, UTI
Condition: Fair
Diet: Other diet
Additional Diets: IDDSI-6 - soft & bite sized
Activity: With assistance and With Walker
Driving Restrictions: No driving
Bathing Restrictions: per wound care
Blood Work: monitor INR O/P in 1 week
Activity Restrictions/Additional Instructions:
Wound Care Instructions
Bilateral knee high Tubigrip as tolerated; may remove q hs, reapply q am.
L Achilles wound-clean with saline or Vashe wound cleanser, Santyl ointment, adaptic, alginate, silicone border foam, change daily and prn drainage.
Elevate heels off bed with pillows; add an air chair cushion on top of L calf pillow to off load L Achilles wound.
Pressure redistributing chair cushion (i.e. Air chair cushion).
Air mattress.
Follow up at wound care center call for an appointment.
Referrals:
Travon Grant DO [Family Provider] - in two to four weeks
Prescriptions:
New
gabapentin 100 mg Capsule
100 mg PO TID Qty: 90 0RF
pramipexole 0.5 mg Tablet
1 mg PO TID Qty: 60 0RF
Continued
carbidopa-levodopa 50-200 mg Tablet Extended Release
2 tab PO QID
cholecalciferol (vitamin D3) [Vitamin D3] 50 mcg (2,000 unit) Capsule
25 mcg PO DAILY
pravastatin 10 mg tablet
10 mg PO DAILY
warfarin 2.5 mg Tablet
2.5 mg PO DAILY
escitalopram oxalate 10 MG tablet
10 mg PO DAILY
ezetimibe 10 MG tablet
10 mg PO HS
furosemide 40 mg tablet
40 mg PO DAILY
methenamine hippurate 1 gram Tablet
1 g PO BID
ketoconazole 2 % Cream
1 applic TOPICAL DAILY
folic acid 0.8 mg Capsule
0.8 mg PO DAILY
Discontinued
metolazone 5 mg Tablet
5 mg PO DAILY
pramipexole [Mirapex ER] 1.5 mg Tablet Extended Release 24 Hr
1.5 mg PO QID
Discharge Orders:
Discharge Patient (As Directed); Ordered 05/24/24
Ordered By: Archie De Los Santos
Discharge Date and Time
Discharge Date/Time: 05/24/24 17:48
Print Language: YAKUT

Documented by User: Ronald Gill MD 05/24/24 22:45
Discharge Summary
Discharge Data
Date of Admission: 05/18/24
Date of Discharge: 05/24/24
Discharge Plan
-
Patient Disposition: Alf/SNF
Discharge Diagnosis/Procedures: hematuria, hyponatremia, URI, UTI
Condition: Fair
Diet: Other diet
Additional Diets: IDDSI-6 - soft & bite sized
Activity: With assistance and With Walker
Driving Restrictions: No driving
Bathing Restrictions: per wound care
Blood Work: monitor INR O/P in 1 week
Activity Restrictions/Additional Instructions:
Wound Care Instructions
Bilateral knee high Tubigrip as tolerated; may remove q hs, reapply q am.
L Achilles wound-clean with saline or Vashe wound cleanser, Santyl ointment, adaptic, alginate, silicone border foam, change daily and prn drainage.
Elevate heels off bed with pillows; add an air chair cushion on top of L calf pillow to off load L Achilles wound.
Pressure redistributing chair cushion (i.e. Air chair cushion).
Air mattress.
Follow up at wound care center call for an appointment.
Referrals:
Travon Grant DO [Family Provider] - in two to four weeks
Prescriptions:
New
gabapentin 100 mg Capsule
100 mg PO TID Qty: 90 0RF
pramipexole 0.5 mg Tablet
1 mg PO TID Qty: 60 0RF
Continued
carbidopa-levodopa 50-200 mg Tablet Extended Release
2 tab PO QID
cholecalciferol (vitamin D3) [Vitamin D3] 50 mcg (2,000 unit) Capsule
25 mcg PO DAILY
pravastatin 10 mg tablet
10 mg PO DAILY
warfarin 2.5 mg Tablet
2.5 mg PO DAILY
escitalopram oxalate 10 MG tablet
10 mg PO DAILY
ezetimibe 10 MG tablet
10 mg PO HS
furosemide 40 mg tablet
40 mg PO DAILY
methenamine hippurate 1 gram Tablet
1 g PO BID
ketoconazole 2 % Cream
1 applic TOPICAL DAILY
folic acid 0.8 mg Capsule
0.8 mg PO DAILY
Discontinued
metolazone 5 mg Tablet
5 mg PO DAILY
pramipexole [Mirapex ER] 1.5 mg Tablet Extended Release 24 Hr
1.5 mg PO QID
Discharge Orders:
Discharge Patient (As Directed); Ordered 05/24/24
Ordered By: Archie De Los Santos
Discharge Date and Time
Discharge Date/Time: 05/24/24 17:48
Print Language: YAKUT
--- NOTE | 2024-05-24 11:11 | W.PN.NEPH.PH ---
Today's Communication / Plan
-
Maintain fluid restriction and po lasix
Assessment/Plan
-
IMP:
Hyponatremia
Hypokalemia
metabolic alkalosis
Hematuria
BPH / AMBRIZ
Anemia
Chronic Indwelling Shell
Chronic HFpEF
Non-Ischemic Myocardial Injury
Lactic Acidosis
Paroxysmal Atrial Fibrillation
Parkinson's Disease
Normocytic Anemia
Peripheral Neuropathy
PLan;
A/w gen weakness, hematuria
Acute on chronic hyponatremia-U osmo high 469 and U na low 11
suspect intravascularly low specially with recent wt loss and soft Bps though has edema
sodium improved to 132 today on lasix, c/w lasix for now. no samsca today
TSH normal
SSRI is still on
follow FR 40ounces/day and monitor daily wts
BP remains soft, cortisol normal ,mod-severe TR, pulm HTN noted on echo
abx per primary suspected UTI
follow h/h stable hb 9., high T sat 89%
Patient with significant improvement of mental status today
No evidence of nephrotic syndrome to explain chronic edema
Low albumin levels likely complicating hemodynamics
encourage solute intake
-
-
Date of Service: May 24, 2024
CC / HPI / ROS
-
Chief Complaint:
Hyponatremia
History of Present Illness:
Serum sodium level up to 132
wt decreasing
Hemodynamically labile
Review of Systems:
Nonoliguric no chest pain or shortness of breath
Much more interactive and oriented today
shell
Labs
-
Labs:
WBC 5.0 10^3/uL (4.8-10.8) 05/24/24 04:37
RBC 3.04 10^6/uL (4.70-6.10) L 05/24/24 04:37
Hgb 9.0 g/dL (13.0-18.0) L 05/24/24 04:37
Hct 26.4 % (39.0-52.0) L 05/24/24 04:37
Plt Count 133 10^3/uL (130-400) 05/24/24 04:37
Sodium 132 mmol/L (135-145) L 05/24/24 04:37
Potassium 3.6 mmol/L (3.5-5.1) 05/24/24 04:37
Chloride 94 mmol/L (98-107) L 05/24/24 04:37
Carbon Dioxide 38 mmol/L (22-30) H 05/24/24 04:37
BUN 15 mg/dl (9-20) 05/24/24 04:37
Creatinine 0.6 mg/dL (0.7-1.3) L 05/24/24 04:37
eGFR > 60.00 05/24/24 04:37
Glucose 130 mg/dl (70-99) H 05/24/24 04:37
Calcium 8.5 mg/dl (8.4-10.2) 05/24/24 04:37
Phosphorus 2.9 mg/dl (2.5-4.5) 05/22/24 07:50
Albumin 2.6 g/dl (3.5-5.0) L 05/22/24 07:50
Physical Exam
-
Vital Signs:
Vital Signs
Temp Pulse Resp BP Pulse Ox
98.1 F 95 20 102/54 93
05/24/24 07:05 05/24/24 09:36 05/24/24 07:05 05/24/24 09:36 05/24/24 07:05
Cardiovascular:: Regular rate and rhythm
Respiratory:: Bilateral: Coarse
Lung Excursion:: Normal
Abdomen:: Nontender and Soft
Bowel Sounds:: Normal
Extremity Edema:: +2: Bilateral:
Shell Catheter: Yes
[2024-05-24] MEDS: SANTYL OINTMENT 1 APPLIC TOPICAL (12:03)
--- NOTE | 2024-05-24 13:09 | CM ---
Chart reviewed and window caser spoke with medical team and patient is for possible discharge today, plan is skilled placement and son Rei [phone] has selected [facility] referral sent to [facility] and yang has been accepted, patient will go by
ambulance
[facility]
Report [phone]
Fax [phone]
Plan; Skilled placement at [facility] today, patient will go by ambulance.
[2024-05-24 13:10] VITALS: BP 109/64; PULSE 92; O2SAT 95
[2024-05-24 15:25] VITALS: BP 100/57
== END 2024-05-24 17:48 | DRG 641 ==
LOC: 4 EAST ACU 22:29
PROVIDERS: Clinical Nurse Specialist Family Health; Student in an Organized Health Care Education/Training Program; ADMITTING PHYSICIAN Hospitalist; ATTENDING PHYSICIAN Family Medicine; CONSULT PHYSICIAN Internal Medicine; CONSULT PHYSICIAN Internal Medicine Cardiovascular Disease; EMERGENCY PHYSICIAN Emergency Medicine; FAMILY PHYSICIAN Internal Medicine
DX: E87.1 Hypo-osmolality and hyponatremia (principal); I50.32 Chronic diastolic (congestive) heart failure; I5A Non-ischemic myocardial injury (non-traumatic); I48.21 Permanent atrial fibrillation; N39.0 Urinary tract infection, site not specified; I27.20 Pulmonary hypertension, unspecified; G20.A1 Parkinson's disease without dyskinesia, without mention of fluctuations; E11.42 Type 2 diabetes mellitus with diabetic polyneuropathy; D64.9 Anemia, unspecified; R63.4 Abnormal weight loss; F32.A Depression, unspecified; M06.9 Rheumatoid arthritis, unspecified; I07.1 Rheumatic tricuspid insufficiency; Z68.31 Body mass index [BMI] 31.0-31.9, adult; E87.4 Mixed disorder of acid-base balance; I95.9 Hypotension, unspecified; B96.89 Other specified bacterial agents as the cause of diseases classified elsewhere; N32.0 Bladder-neck obstruction; E87.6 Hypokalemia; I48.0 Paroxysmal atrial fibrillation; N40.0 Benign prostatic hyperplasia without lower urinary tract symptoms; R31.9 Hematuria, unspecified; E55.9 Vitamin D deficiency, unspecified; E78.00 Pure hypercholesterolemia, unspecified; F41.9 Anxiety disorder, unspecified; I25.10 Atherosclerotic heart disease of native coronary artery without angina pectoris; J06.9 Acute upper respiratory infection, unspecified; R29.6 Repeated falls; R53.81 Other malaise; R60.0 Localized edema; R63.0 Anorexia; Z96.0 Presence of urogenital implants; Z96.643 Presence of artificial hip joint, bilateral; Z96.653 Presence of artificial knee joint, bilateral; Z91.81 History of falling; Z79.01 Long term (current) use of anticoagulants; Z79.899 Other long term (current) drug therapy; Z87.891 Personal history of nicotine dependence; Z88.1 Allergy status to other antibiotic agents; Z88.8 Allergy status to other drugs, medicaments and biological substances; Z87.01 Personal history of pneumonia (recurrent); Z87.19 Personal history of other diseases of the digestive system; Z87.442 Personal history of urinary calculi
CPT/HCPCS: 36415; 70450; 71046; 80048; 80053; 80069; 81003; 81015; 82533; 82962; 83540; 83550; 83605; 83735; 83935; 84100; 84295; 84300; 84443; 84484; 85025; 85027; 85610; 87070; 87077; 87086; 87186; 87502; 87811; 92526; 92610; 93005; 93306; 94640; 96361; 96374; 96375; 97163; 97167; 97530; 99284

== ENCOUNTER → 2024-05-28 10:24 | Outpatient (REF) | payer MEDICARE, OTHER, SELFPAY ==
[2024-05-28 11:18] LABS: Hematocrit 28.7 % (39.0-52.0); Hemoglobin 9.8 g/dL (13.0-18.0); Mean Corp Hgb Conc. 34.1 g/dL (33.0-37.0); Mean Corpuscular Hgb 29.3 pg (27.0-31.0); Mean Corpuscular Volume 85.9 fL (80.0-94.0); Mean Platelet Volume 9.2 fL (7.4-10.4); Platelet Count 189 10^3/uL (130-400); Red Blood Cell Count 3.34 10^6/uL (4.70-6.10); Red Cell Dist. Width 17.4 % (11.5-14.5); White Blood Cell Count 6.8 10^3/uL (4.8-10.8)
[2024-05-28 11:21] LABS: INR 1.69; PT 19.7 Sec (11.4-14.6)
[2024-05-28 14:00] LABS: ALT (SGPT) 16 U/L (0-50); AST (SGOT) 21 U/L (17-59); Albumin 3.1 g/dl (3.5-5.0); Alkaline Phosphatase 333 U/L (38-126); Blood Urea Nitrogen 15 mg/dl (9-20); Calcium 8.6 mg/dl (8.4-10.2); Carbon Dioxide 32 mmol/L (22-30); Chloride 91 mmol/L (98-107); Glucose 124 mg/dl (70-99); Potassium 3.5 mmol/L (3.5-5.1); Sodium 132 mmol/L (135-145); Total Bilirubin 2.1 mg/dl (0.2-1.3); Total Protein 6.1 g/dl (6.3-8.2); eGFR > 60.00
== END ==
LOC: OLABP 10:24
PROVIDERS: ATTENDING PHYSICIAN Family Medicine
DX: I48.21 Permanent atrial fibrillation (principal); R77.8 Other specified abnormalities of plasma proteins
CPT/HCPCS: 36415; 80053; 85027; 85610

== ENCOUNTER → 2024-05-29 16:59 | Outpatient (REF) | payer OTHER, MEDICARE, SELFPAY ==
[2024-05-29 19:26] LABS: % Basophils 0.4 % (0-2); % Eosinophils 1.5 % (0-6); % Immature Granulocytes 0.6 % (0-0.5); % Monocytes 7.5 % (1.7-9.3); Absolute Eosinophils 0.1 10^3/uL (0-0.7); Absolute Lymphocytes 0.4 10^3/uL (1.2-3.4); Absolute Monocytes 0.4 10^3/uL (0.1-0.6); Absolute Neutrophils 4.4 10^3/uL (1.4-6.5); Hematocrit 24.7 % (39.0-52.0); Hemoglobin 8.3 g/dL (13.0-18.0); Mean Corp Hgb Conc. 33.6 g/dL (33.0-37.0); Mean Corpuscular Hgb 28.7 pg (27.0-31.0); Mean Corpuscular Volume 85.5 fL (80.0-94.0); Mean Platelet Volume 9.3 fL (7.4-10.4); Nucleated Red Blood Cells % 0.7 % (-); Platelet Count 147 10^3/uL (130-400); Red Blood Cell Count 2.89 10^6/uL (4.70-6.10); Red Cell Dist. Width 17.9 % (11.5-14.5); White Blood Cell Count 5.4 10^3/uL (4.8-10.8)
== END ==
LOC: OLABP 16:59
PROVIDERS: ATTENDING PHYSICIAN Family Medicine
DX: D64.9 Anemia, unspecified (principal); N39.0 Urinary tract infection, site not specified; B96.1 Klebsiella pneumoniae [K. pneumoniae] as the cause of diseases classified elsewhere; T83.511D Infection and inflammatory reaction due to indwelling urethral catheter, subsequent encounter; J81.0 Acute pulmonary edema; E87.1 Hypo-osmolality and hyponatremia; E87.6 Hypokalemia; M62.81 Muscle weakness (generalized); R26.2 Difficulty in walking, not elsewhere classified; I48.0 Paroxysmal atrial fibrillation; D72.819 Decreased white blood cell count, unspecified; E83.39 Other disorders of phosphorus metabolism; E83.42 Hypomagnesemia; E83.51 Hypocalcemia; N40.1 Benign prostatic hyperplasia with lower urinary tract symptoms; I50.9 Heart failure, unspecified; G20.A1 Parkinson's disease without dyskinesia, without mention of fluctuations
CPT/HCPCS: 85025

== ENCOUNTER → 2024-05-30 10:35 | Outpatient (REF) | payer OTHER, MEDICARE, SELFPAY ==
[2024-05-30 12:07] LABS: Lactic Acid 1.6 mmol/L (0.7-2.0)
[2024-05-30 12:17] LABS: Urine Albumin 1+ (Neg - Trace); Urine Bilirubin 1+ (Negative); Urine Character Very Cloudy (Clear); Urine Color Brown; Urine Glucose Negative (Negative); Urine Ketone 1+ (Negative); Urine Leukocyte Trace (Negative); Urine Nitrite Negative (Negative); Urine Occult Blood 4+ (Negative); Urine Specific Gravity 1.025 (<1.030); Urine Urobilinogen 1+ (Neg - 1+)
[2024-05-30 12:24] LABS: ALT (SGPT) 13 U/L (0-50); AST (SGOT) 18 U/L (17-59); Albumin 2.6 g/dl (3.5-5.0); Alkaline Phosphatase 224 U/L (38-126); Blood Urea Nitrogen 12 mg/dl (9-20); Calcium 8.1 mg/dl (8.4-10.2); Carbon Dioxide 37 mmol/L (22-30); Chloride 92 mmol/L (98-107); Glucose 150 mg/dl (70-99); Potassium 3.5 mmol/L (3.5-5.1); Sodium 130 mmol/L (135-145); Total Bilirubin 2.2 mg/dl (0.2-1.3); Total Protein 5.3 g/dl (6.3-8.2); eGFR > 60.00
[2024-05-30 12:38] LABS: Urine Bacteria Many (Negative); Urine White Cell 0-2 /HPF (0-5)
== END ==
LOC: OLABP 10:35
PROVIDERS: ATTENDING PHYSICIAN Family Medicine
DX: D64.9 Anemia, unspecified (principal); N39.0 Urinary tract infection, site not specified; B96.1 Klebsiella pneumoniae [K. pneumoniae] as the cause of diseases classified elsewhere; J81.0 Acute pulmonary edema; E87.1 Hypo-osmolality and hyponatremia; E87.6 Hypokalemia; M62.81 Muscle weakness (generalized); I48.0 Paroxysmal atrial fibrillation; R26.2 Difficulty in walking, not elsewhere classified; D72.819 Decreased white blood cell count, unspecified; E83.39 Other disorders of phosphorus metabolism; E83.42 Hypomagnesemia; E83.51 Hypocalcemia; I50.9 Heart failure, unspecified; N40.1 Benign prostatic hyperplasia with lower urinary tract symptoms; G20.A1 Parkinson's disease without dyskinesia, without mention of fluctuations
CPT/HCPCS: 80053; 81003; 81015; 83605; 87086

== ENCOUNTER → 2024-05-31 10:10 | Outpatient (REF) | payer OTHER, MEDICARE, SELFPAY ==
[2024-05-31 12:15] LABS: % Basophils 1.2 % (0-2); % Eosinophils 5.2 % (0-6); % Immature Granulocytes 0.6 % (0-0.5); % Lymphocytes 19.2 % (20.5-51.1); % Monocytes 10.8 % (1.7-9.3); Absolute Eosinophils 0.2 10^3/uL (0-0.7); Absolute Lymphocytes 0.7 10^3/uL (1.2-3.4); Absolute Monocytes 0.4 10^3/uL (0.1-0.6); Absolute Neutrophils 2.2 10^3/uL (1.4-6.5); Hematocrit 25.4 % (39.0-52.0); Hemoglobin 8.5 g/dL (13.0-18.0); Mean Corp Hgb Conc. 33.5 g/dL (33.0-37.0); Mean Corpuscular Hgb 29.7 pg (27.0-31.0); Mean Corpuscular Volume 88.8 fL (80.0-94.0); Mean Platelet Volume 9.2 fL (7.4-10.4); Nucleated Red Blood Cells % 0 % (-); Platelet Count 121 10^3/uL (130-400); Red Blood Cell Count 2.86 10^6/uL (4.70-6.10); Red Cell Dist. Width 18.6 % (11.5-14.5); White Blood Cell Count 3.4 10^3/uL (4.8-10.8)
[2024-05-31 12:43] LABS: ALT (SGPT) < 10 U/L (0-50); AST (SGOT) 14 U/L (17-59); Albumin 2.5 g/dl (3.5-5.0); Alkaline Phosphatase 207 U/L (38-126); Blood Urea Nitrogen 13 mg/dl (9-20); Calcium 7.9 mg/dl (8.4-10.2); Carbon Dioxide 35 mmol/L (22-30); Chloride 91 mmol/L (98-107); Glucose 87 mg/dl (70-99); Potassium 3.2 mmol/L (3.5-5.1); Sodium 129 mmol/L (135-145); Total Bilirubin 1.7 mg/dl (0.2-1.3); Total Protein 5.3 g/dl (6.3-8.2); eGFR > 60.00
== END ==
LOC: OLABP 10:10
PROVIDERS: ATTENDING PHYSICIAN Family Medicine
DX: N39.0 Urinary tract infection, site not specified (principal); T83.511D Infection and inflammatory reaction due to indwelling urethral catheter, subsequent encounter; B96.1 Klebsiella pneumoniae [K. pneumoniae] as the cause of diseases classified elsewhere; J81.0 Acute pulmonary edema; E87.1 Hypo-osmolality and hyponatremia; E87.6 Hypokalemia; M62.81 Muscle weakness (generalized); R26.2 Difficulty in walking, not elsewhere classified; I48.0 Paroxysmal atrial fibrillation; D72.819 Decreased white blood cell count, unspecified; E83.39 Other disorders of phosphorus metabolism; E83.42 Hypomagnesemia; E83.51 Hypocalcemia; N40.1 Benign prostatic hyperplasia with lower urinary tract symptoms; I50.9 Heart failure, unspecified; G20.A1 Parkinson's disease without dyskinesia, without mention of fluctuations; D64.9 Anemia, unspecified
CPT/HCPCS: 36415; 80053; 85025

== ENCOUNTER → 2024-06-03 12:44 | Outpatient (REF) | payer MEDICARE, OTHER, SELFPAY ==
[2024-06-03 13:17] LABS: Blood Urea Nitrogen 18 mg/dl (9-20); Calcium 8.2 mg/dl (8.4-10.2); Carbon Dioxide 36 mmol/L (22-30); Chloride 91 mmol/L (98-107); Glucose 99 mg/dl (70-99); Magnesium 1.5 mg/dl (1.6-2.3); Potassium 3.6 mmol/L (3.5-5.1); Sodium 129 mmol/L (135-145); eGFR > 60.00
== END ==
LOC: OLABP 12:44
PROVIDERS: ATTENDING PHYSICIAN Family Medicine
DX: T83.511D Infection and inflammatory reaction due to indwelling urethral catheter, subsequent encounter (principal); B96.1 Klebsiella pneumoniae [K. pneumoniae] as the cause of diseases classified elsewhere; J81.0 Acute pulmonary edema; E87.1 Hypo-osmolality and hyponatremia; E87.6 Hypokalemia; M62.81 Muscle weakness (generalized); R26.2 Difficulty in walking, not elsewhere classified; D72.819 Decreased white blood cell count, unspecified; E83.39 Other disorders of phosphorus metabolism; E83.42 Hypomagnesemia; E83.51 Hypocalcemia; N40.1 Benign prostatic hyperplasia with lower urinary tract symptoms; I50.9 Heart failure, unspecified; G20.A1 Parkinson's disease without dyskinesia, without mention of fluctuations; D64.9 Anemia, unspecified
CPT/HCPCS: 36415; 80048; 83735

== ENCOUNTER → 2024-06-05 12:03 | Outpatient (REF) | payer OTHER, MEDICARE, SELFPAY ==
[2024-06-05 12:44] LABS: % Basophils 0.2 % (0-2); % Eosinophils 0.2 % (0-6); % Immature Granulocytes 0.5 % (0-0.5); % Lymphocytes 25.4 % (20.5-51.1); % Monocytes 10.8 % (1.7-9.3); % Neutrophils 62.9 % (42.2-75.2); Absolute Lymphocytes 1.1 10^3/uL (1.2-3.4); Absolute Monocytes 0.5 10^3/uL (0.1-0.6); Absolute Neutrophils 2.7 10^3/uL (1.4-6.5); Hematocrit 26.5 % (39.0-52.0); Hemoglobin 8.7 g/dL (13.0-18.0); Mean Corp Hgb Conc. 32.8 g/dL (33.0-37.0); Mean Corpuscular Hgb 28.4 pg (27.0-31.0); Mean Corpuscular Volume 86.6 fL (80.0-94.0); Mean Platelet Volume 9.8 fL (7.4-10.4); Nucleated Red Blood Cells % 0 % (-); Platelet Count 122 10^3/uL (130-400); Red Blood Cell Count 3.06 10^6/uL (4.70-6.10); Red Cell Dist. Width 18.6 % (11.5-14.5); White Blood Cell Count 4.3 10^3/uL (4.8-10.8)
[2024-06-05 12:57] LABS: Blood Urea Nitrogen 20 mg/dl (9-20); Calcium 8.4 mg/dl (8.4-10.2); Carbon Dioxide 37 mmol/L (22-30); Chloride 93 mmol/L (98-107); Glucose 104 mg/dl (70-99); Magnesium 1.5 mg/dl (1.6-2.3); Potassium 3.1 mmol/L (3.5-5.1); Sodium 133 mmol/L (135-145); eGFR > 60.00
== END ==
LOC: OLABP 12:03
PROVIDERS: ATTENDING PHYSICIAN Family Medicine
DX: D64.9 Anemia, unspecified (principal); B96.1 Klebsiella pneumoniae [K. pneumoniae] as the cause of diseases classified elsewhere; E87.1 Hypo-osmolality and hyponatremia; E83.42 Hypomagnesemia; E83.51 Hypocalcemia; I50.9 Heart failure, unspecified; I48.0 Paroxysmal atrial fibrillation
CPT/HCPCS: 36415; 80048; 83735; 85025

== ENCOUNTER → 2024-06-06 12:45 | Outpatient (REF) | payer OTHER, MEDICARE, SELFPAY ==
[2024-06-06 13:30] LABS: Urine Albumin Trace (Neg - Trace); Urine Bilirubin Negative (Negative); Urine Character Clear (Clear); Urine Color Amber; Urine Glucose Negative (Negative); Urine Ketone 1+ (Negative); Urine Leukocyte Trace (Negative); Urine Nitrite Negative (Negative); Urine Occult Blood 1+ (Negative); Urine Urobilinogen 1+ (Neg - 1+)
[2024-06-06 14:34] LABS: Urine Mucus Many
[2024-06-06 14:37] LABS: Urine Bacteria Few (Negative); Urine Red Blood Cell 30-40 /HPF (0-2)
== END ==
LOC: OLABP 12:45
PROVIDERS: ATTENDING PHYSICIAN Family Medicine
DX: J81.0 Acute pulmonary edema (principal); B96.1 Klebsiella pneumoniae [K. pneumoniae] as the cause of diseases classified elsewhere; M62.81 Muscle weakness (generalized); E87.1 Hypo-osmolality and hyponatremia; E87.6 Hypokalemia; D72.819 Decreased white blood cell count, unspecified; E83.42 Hypomagnesemia; E83.51 Hypocalcemia; I50.9 Heart failure, unspecified; I5A Non-ischemic myocardial injury (non-traumatic); D64.9 Anemia, unspecified; I48.0 Paroxysmal atrial fibrillation; U07.1 COVID-19
CPT/HCPCS: 81003; 81015

== ENCOUNTER → 2024-06-07 11:32 | Outpatient (REF) | payer OTHER, MEDICARE, SELFPAY ==
[2024-06-07 14:14] LABS: % Basophils 0.4 % (0-2); % Eosinophils 1.2 % (0-6); % Lymphocytes 16.4 % (20.5-51.1); % Monocytes 10.2 % (1.7-9.3); % Neutrophils 70.8 % (42.2-75.2); Absolute Eosinophils 0.1 10^3/uL (0-0.7); Absolute Immature Granulocytes 0.1 10^3/uL (0-0.05); Absolute Lymphocytes 0.8 10^3/uL (1.2-3.4); Absolute Monocytes 0.5 10^3/uL (0.1-0.6); Absolute Neutrophils 3.6 10^3/uL (1.4-6.5); Hematocrit 29.2 % (39.0-52.0); Hemoglobin 9.5 g/dL (13.0-18.0); Mean Corp Hgb Conc. 32.5 g/dL (33.0-37.0); Mean Corpuscular Hgb 28.4 pg (27.0-31.0); Mean Corpuscular Volume 87.2 fL (80.0-94.0); Mean Platelet Volume 9.4 fL (7.4-10.4); Nucleated Red Blood Cells % 0 % (-); Platelet Count 129 10^3/uL (130-400); Red Blood Cell Count 3.35 10^6/uL (4.70-6.10); Red Cell Dist. Width 19.1 % (11.5-14.5); White Blood Cell Count 5.1 10^3/uL (4.8-10.8)
[2024-06-07 14:28] LABS: Blood Urea Nitrogen 18 mg/dl (9-20); Calcium 8.8 mg/dl (8.4-10.2); Carbon Dioxide 34 mmol/L (22-30); Chloride 98 mmol/L (98-107); Glucose 134 mg/dl (70-99); Magnesium 1.7 mg/dl (1.6-2.3); Potassium 3.9 mmol/L (3.5-5.1); Sodium 135 mmol/L (135-145); eGFR > 60.00
== END ==
LOC: OLABP 11:32
PROVIDERS: ATTENDING PHYSICIAN Family Medicine
DX: M81.0 Age-related osteoporosis without current pathological fracture (principal); M62.81 Muscle weakness (generalized); B96.1 Klebsiella pneumoniae [K. pneumoniae] as the cause of diseases classified elsewhere; E87.1 Hypo-osmolality and hyponatremia; D72.819 Decreased white blood cell count, unspecified; E83.42 Hypomagnesemia; I50.9 Heart failure, unspecified; D64.9 Anemia, unspecified; U07.1 COVID-19; E83.51 Hypocalcemia; I5A Non-ischemic myocardial injury (non-traumatic); I48.0 Paroxysmal atrial fibrillation
CPT/HCPCS: 36415; 80048; 83735; 85025

== ENCOUNTER → 2024-06-10 13:42 | Outpatient (REF) | payer OTHER, MEDICARE, SELFPAY ==
[2024-06-10 14:12] LABS: % Basophils 0.5 % (0-2); % Eosinophils 2.9 % (0-6); % Immature Granulocytes 0.5 % (0-0.5); % Lymphocytes 18.9 % (20.5-51.1); % Monocytes 11.3 % (1.7-9.3); % Neutrophils 65.9 % (42.2-75.2); Absolute Eosinophils 0.1 10^3/uL (0-0.7); Absolute Lymphocytes 0.8 10^3/uL (1.2-3.4); Absolute Monocytes 0.5 10^3/uL (0.1-0.6); Absolute Neutrophils 2.7 10^3/uL (1.4-6.5); Hematocrit 29.4 % (39.0-52.0); Hemoglobin 9.6 g/dL (13.0-18.0); Mean Corp Hgb Conc. 32.7 g/dL (33.0-37.0); Mean Corpuscular Hgb 28.6 pg (27.0-31.0); Mean Corpuscular Volume 87.5 fL (80.0-94.0); Nucleated Red Blood Cells % 0 % (-); Platelet Count 126 10^3/uL (130-400); Red Blood Cell Count 3.36 10^6/uL (4.70-6.10); Red Cell Dist. Width 20.7 % (11.5-14.5); White Blood Cell Count 4.1 10^3/uL (4.8-10.8)
[2024-06-10 14:16] LABS: ALT (SGPT) < 10 U/L (0-50); AST (SGOT) 12 U/L (17-59); Albumin 2.8 g/dl (3.5-5.0); Alkaline Phosphatase 184 U/L (38-126); Blood Urea Nitrogen 11 mg/dl (9-20); Calcium 8.8 mg/dl (8.4-10.2); Carbon Dioxide 33 mmol/L (22-30); Chloride 100 mmol/L (98-107); Glucose 86 mg/dl (70-99); Magnesium 1.8 mg/dl (1.6-2.3); Potassium 4.3 mmol/L (3.5-5.1); Sodium 135 mmol/L (135-145); Total Protein 5.7 g/dl (6.3-8.2); eGFR > 60.00
== END ==
LOC: OLABP 13:42
PROVIDERS: ATTENDING PHYSICIAN Family Medicine
DX: J81.0 Acute pulmonary edema (principal); M62.81 Muscle weakness (generalized); B96.1 Klebsiella pneumoniae [K. pneumoniae] as the cause of diseases classified elsewhere; E87.6 Hypokalemia; E87.1 Hypo-osmolality and hyponatremia; E83.42 Hypomagnesemia; I50.9 Heart failure, unspecified; D64.9 Anemia, unspecified; U07.1 COVID-19; I48.0 Paroxysmal atrial fibrillation
CPT/HCPCS: 36415; 80053; 83735; 85025

== ENCOUNTER → 2024-06-28 10:04 | Outpatient (REF) | payer OTHER, MEDICARE, SELFPAY ==
[2024-06-28 10:50] LABS: % Basophils 0.6 % (0-2); % Eosinophils 3.2 % (0-6); % Immature Granulocytes 0.4 % (0-0.5); % Lymphocytes 17.2 % (20.5-51.1); % Monocytes 10.8 % (1.7-9.3); % Neutrophils 67.8 % (42.2-75.2); Absolute Eosinophils 0.2 10^3/uL (0-0.7); Absolute Lymphocytes 0.8 10^3/uL (1.2-3.4); Absolute Monocytes 0.5 10^3/uL (0.1-0.6); Absolute Neutrophils 3.2 10^3/uL (1.4-6.5); Hematocrit 27.1 % (39.0-52.0); Mean Corp Hgb Conc. 33.2 g/dL (33.0-37.0); Mean Corpuscular Hgb 30.3 pg (27.0-31.0); Mean Corpuscular Volume 91.2 fL (80.0-94.0); Mean Platelet Volume 10.3 fL (7.4-10.4); Nucleated Red Blood Cells % 0 % (-); Platelet Count 126 10^3/uL (130-400); Red Blood Cell Count 2.97 10^6/uL (4.70-6.10); Red Cell Dist. Width 21.7 % (11.5-14.5); White Blood Cell Count 4.7 10^3/uL (4.8-10.8)
[2024-06-28 11:02] LABS: Blood Urea Nitrogen 15 mg/dl (9-20); Calcium 8.5 mg/dl (8.4-10.2); Carbon Dioxide 32 mmol/L (22-30); Chloride 100 mmol/L (98-107); Glucose 102 mg/dl (70-99); Magnesium 1.7 mg/dl (1.6-2.3); Potassium 3.9 mmol/L (3.5-5.1); Sodium 135 mmol/L (135-145); eGFR > 60.00
== END ==
LOC: OLABP 10:04
PROVIDERS: ATTENDING PHYSICIAN Family Medicine
DX: J81.0 Acute pulmonary edema (principal); M62.81 Muscle weakness (generalized); B96.1 Klebsiella pneumoniae [K. pneumoniae] as the cause of diseases classified elsewhere; E87.1 Hypo-osmolality and hyponatremia; E87.6 Hypokalemia; D72.819 Decreased white blood cell count, unspecified; E83.42 Hypomagnesemia; E83.51 Hypocalcemia; I50.9 Heart failure, unspecified; D64.9 Anemia, unspecified; U07.1 COVID-19; I5A Non-ischemic myocardial injury (non-traumatic); I48.0 Paroxysmal atrial fibrillation
CPT/HCPCS: 36415; 80048; 83735; 85025

== ENCOUNTER → 2024-07-01 10:06 | Outpatient (REF) | payer OTHER, MEDICARE, SELFPAY ==
[2024-07-01 14:13] LABS: Blood Urea Nitrogen 12 mg/dl (9-20); Calcium 8.3 mg/dl (8.4-10.2); Carbon Dioxide 29 mmol/L (22-30); Chloride 102 mmol/L (98-107); Glucose 114 mg/dl (70-99); Magnesium 1.5 mg/dl (1.6-2.3); Potassium 3.7 mmol/L (3.5-5.1); Sodium 138 mmol/L (135-145); eGFR > 60.00
== END ==
LOC: OLABP 10:06
PROVIDERS: ATTENDING PHYSICIAN Family Medicine
DX: J81.0 Acute pulmonary edema (principal); M62.81 Muscle weakness (generalized); B96.1 Klebsiella pneumoniae [K. pneumoniae] as the cause of diseases classified elsewhere; E87.1 Hypo-osmolality and hyponatremia; E87.6 Hypokalemia; D72.819 Decreased white blood cell count, unspecified; E83.42 Hypomagnesemia; E83.51 Hypocalcemia; I50.9 Heart failure, unspecified; I5A Non-ischemic myocardial injury (non-traumatic); D64.9 Anemia, unspecified; U07.1 COVID-19; I48.0 Paroxysmal atrial fibrillation
CPT/HCPCS: 36415; 80048; 83735

== ENCOUNTER → 2024-07-09 11:45 | Outpatient (REF) | payer MEDICARE, OTHER, SELFPAY | LOC: RAD 11:45 | PROVIDERS: ATTENDING PHYSICIAN Family Medicine | DX: R13.10 Dysphagia, unspecified (principal) | CPT/HCPCS: 74221 ==

== ENCOUNTER → 2024-07-12 09:19 | Outpatient (REF) | payer OTHER, SELFPAY ==
[2024-07-12 10:13] LABS: Hematocrit 29.6 % (39.0-52.0); Hemoglobin 9.5 g/dL (13.0-18.0); Mean Corp Hgb Conc. 32.1 g/dL (33.0-37.0); Mean Corpuscular Hgb 30.2 pg (27.0-31.0); Mean Platelet Volume 9.5 fL (7.4-10.4); Platelet Count 152 10^3/uL (130-400); Red Blood Cell Count 3.15 10^6/uL (4.70-6.10); Red Cell Dist. Width 20.5 % (11.5-14.5); White Blood Cell Count 4.3 10^3/uL (4.8-10.8)
[2024-07-12 10:57] LABS: ALT (SGPT) 13 U/L (0-50); AST (SGOT) 13 U/L (17-59); Albumin 2.7 g/dl (3.5-5.0); Alkaline Phosphatase 205 U/L (38-126); Blood Urea Nitrogen 14 mg/dl (9-20); Calcium 8.5 mg/dl (8.4-10.2); Carbon Dioxide 27 mmol/L (22-30); Chloride 104 mmol/L (98-107); Glucose 84 mg/dl (70-99); Magnesium 1.5 mg/dl (1.6-2.3); Sodium 137 mmol/L (135-145); Total Bilirubin 1.5 mg/dl (0.2-1.3); Total Protein 5.6 g/dl (6.3-8.2); eGFR > 60.00
== END ==
LOC: OLABP 09:19
PROVIDERS: ATTENDING PHYSICIAN Family Medicine
DX: J81.0 Acute pulmonary edema (principal); M62.81 Muscle weakness (generalized); B96.1 Klebsiella pneumoniae [K. pneumoniae] as the cause of diseases classified elsewhere; E87.6 Hypokalemia; D72.819 Decreased white blood cell count, unspecified; E83.42 Hypomagnesemia; E83.51 Hypocalcemia; I50.9 Heart failure, unspecified; I5A Non-ischemic myocardial injury (non-traumatic); D64.9 Anemia, unspecified; U07.1 COVID-19
CPT/HCPCS: 36415; 80053; 83735; 85027